=== PATIENT | male | born 1965 | race Caucasian/White ===

== ENCOUNTER 2019-10-02 00:30 | Inpatient (IN) ==
[2019-10-02] MEDS ORDERED: KETOROLAC 30 MG/ML VIAL IV STA (00:43)
[2019-10-02] MEDS ORDERED: ONDANSETRON INJ 2 MG/ML 2 ML VIAL IV STA (00:43)
[2019-10-02] MEDS ORDERED: SODIUM CHLORIDE 0.9% 1000ML 1,000 ML IV SCH (00:45)
[2019-10-02 00:55] LABS: Basophils # (auto) 0.01 K/uL (0-0.2); Basophils % (auto) 0.1 %; Eosinophils # (auto) 0.28 K/uL (0-0.5); Hematocrit (blood only) 37.9 % (42-52); Immature Granulocytes # (auto) 0.02 K/uL (0.00-0.02); Immature Granulocytes % (auto) 0.2 %; Lymphocytes # (auto) 1.45 K/uL (1.2-3.4); Lymphocytes % (auto) 15.4 %; Mean Corpuscular Hemoglobin 32.3 pg (25-34); Mean Corpuscular Hgb Conc 36.9 g/dL (32-36); Mean Corpuscular Volume 87.3 fL (80-100); Mean Platelet Volume 8.8 fL (7.4-10.4); Monocytes # (auto) 0.96 K/uL (0.11-0.59); Monocytes % (auto) 10.2 %; Neutrophils # (auto) 6.72 K/uL (1.4-6.5); Neutrophils % (auto) 71.1 %; Platelet Count 185 K/uL (130-400); RDW Coefficient of Variation 12.6 % (11.5-14.5); RDW Standard Deviation 40.4 fL (36.4-46.3); Red Blood Count 4.34 M/uL (4.7-6.1); White Blood Count 9.44 K/uL (4.8-10.8)
[2019-10-02 01:13] LABS: Albumin Level 3.3 gm/dl (3.4-5.0); BUN Creatinine Ratio 7.5 (10-20); Calcium 9.2 mg/dl (8.5-10.1); Creatinine Clr Calc Pharmacy 38.1 ml/min; Est GFR (African American) 39.4; Potassium 3.7 mmol/L (3.5-5.1)
[2019-10-02 01:16] LABS: Albumin Globulin Ratio 0.8 (0.9-2); Bilirubin,Total 0.7 mg/dl (0.2-1); Globulin 4.4 gm/dl (2.5-4.0); Total Protein 7.7 gm/dl (6.4-8.2)
[2019-10-02 02:52] LABS: Appearance Urine Clear (Clear); Bacteria Urine Automated Negative (Negative); Bilirubin Urine Negative (Negative); Blood Urine 2+ (Negative); Color Urine Dark Yellow; Epithelial Cell Urine Auto 20-30 /lpf (0-5); Glucose Urine UA 3+ (Negative); Ketones Urine Negative (Negative); Leukocyte Esterase Urine Negative (Negative); Nitrite Urine Negative (Negative); Protein Urine 3+ (Negative); Specific Gravity Urine 1.033 (1.000-1.030); Urobilinogen Urine Negative (Negative)
--- NOTE | 2019-10-02 02:55 | History & Physical Report ---
Date of Service October 02, 2019 Assessment & Plan (1) Urinary tract obstruction by kidney stone: Mr. Ortega is a 53-year-old male with a past medical history of type 2 diabetes mellitus, hypertension and hyperlipidemia who presented to [facility] due to a 4-day history of left lower quadrant pain. ED course: 1 L normal saline bolus, 30 mg IV Toradol, 4 mg IV Zofran Left-sided obstructing kidney stone -Admit to med/surg -CT of abdomen and pelvis shows 5x8 millimeter stone in left distal ureter, with an additional 4-5 mm stone in the distal ureter with moderate to severe obstructive changes. Bilateral nephrolithiasis -N.p.o., will consult urology -We will give 1 dose of IV Rocephin as antibiotic prophylaxis -Pain control with as needed 1 g p.o. acetaminophen every 8 hours, 15 mg IV Toradol every 6 hours, 2 mg IV morphine every 3 hours -4 mg IV Zofran every 6 hours as needed for nausea -Maintenance IVF with LR at 100 mls per hour Acute kidney injury -Creatinine elevated to 2.12, from previously normal baseline, likely secondary to obstructing kidney stone -Maintenance IVF as above -Avoid nephrotoxic agents -Recheck BMP tomorrow Diabetes Mellitus Type 2 -Hold home metformin and glyburide -insulin sliding scale with BSG AC/HS Hypertension -Hold home lisinopril given FUAD Hypercholesterolemia -Continue home atorvastatin Code status: FULL DVT Prophylaxis: low risk, SCDs Disposition: admit to med/surg (2) Acute kidney injury: (3) Hypertension: (4) Diabetes: (5) Hypercholesteremia: History of Present Illness Chief Complaint: LLQ Pain Primary Care Provider: NO PCP Mr. Ortega is a 53-year-old male with a past medical history of type 2 diabetes mellitus, hypertension and hyperlipidemia who presented to [facility] due to a 4-day history of left lower quadrant pain. The patient states that he has a history of numerous kidney stones in the past, which he generally passes himself. He states that his pain felt very similar to prior kidney stones, and he thought that he would pass it on his own. He presented to [facility] today due to the fact that his pain was not improving. He states that he had to have a stone surgically removed in 1988, and has had 34 episodes of kidney stones between then and now, all of which she has passed himself. He denies any associated fever, but states that he has had chills, and vomited. He denies any dysuria, or hematuria, and states that he has been able to pass urine. Allergies Allergy/AdvReac Type Severity Reaction Status Date / Time No Known Allergies Allergy Unverified 10/02/19 01:24 Home Medications Home Medications Medication Instructions Recorded Confirmed Type atorvastatin 10 mg PO DAILY 10/02/19 10/02/19 History glyburide 10 mg PO DAILY 10/02/19 10/02/19 History lisinopril 10 mg PO DAILY 10/02/19 10/02/19 History metformin 500 mg PO BID 10/02/19 10/02/19 History Past Med/Surg History Medical History (Updated 10/02/19 @ 02:53 by Tonya Garza MD) Diabetes Hypertension Kidney stone Family History (Updated 10/02/19 @ 00:46 by Kenney Zamora) Other No significant family history Social History Preferred Language: Georgian Feels Safe at Home: Yes Smoking Status: Former smoker Review of Systems Constitutional: + chills and + anorexia; no fever Respiratory: no cough and no dyspnea Cardiovascular: no chest pain, no palpitations and no edema Gastrointestinal: + abdominal pain, + nausea and + vomiting; no change in bowel habits Genitourinary: no dysuria, no difficulty urinating, no urinary frequency and no hematuria Physical Exam Constitutional: WD/WN, vitals as above + well hydrated; no acute distress Eyes: PERRL, conjunctivae normal, anicteric sclerae ENMT: external ear and nose normal, oropharynx normal Respiratory: normal respiratory effort, lungs clear to auscultation Cardiovascular: RRR, no murmur, no edema Gastrointestinal (Abdomen): Percussion/Palpation: + abdomen tender (tender in left lower quadrant and left flank) and abdomen soft; no guarding and abdomen not rigid Musculoskeletal: no cyanosis or clubbing, extremities motor strength 5/5 Skin: no rashes, warm and dry Results & Data Vital Signs (Past 12 Hours) Vital Signs Temp Pulse Pulse Resp BP BP Pulse Ox 10/02/19 01:22 73 18 182/99 H 99 10/02/19 00:53 98 10/02/19 00:33 36.8 C 91 H 18 187/108 H 98 Code Status & VTE Plan VTE Prophylaxis Plan VTE Prophylaxis will be ordered: Yes Supervising Physician Co-Signing Physician Notes Patient seen and examined, chart reviewed, case discussed with Dr. Garza and I agree with her assessment and plan as documented above. Briefly, patient is a 53yo C male with history of nephrolithiasis presenting with obstructing stone, elevated Cr. On exam he is afebrile, HD stable, NAD Resting comfortably in bed +S1S2, regular, no m/r/g Lungs - CTA anteriorly Abd - +BS, soft, NT/ND Ext - no edema Labs and images reviewed Assessment/Plan: 53yo C male with obstructive left sided nephrolithiasis, hydronephrosis. -Admit to medical floor -IVF, pain control, nausea control as needed -Strain urine -Ceftriaxone -Urology consultation - appreciate assistance -Remainder of plan as above Resident Activity Tracking Resident Involvement: Resident Care Provided Care Provided: Adult Hospital Medicine
[2019-10-02] MEDS ORDERED: DEXTROSE 50% 50 ML SYRINGE IV PRN (03:30)
[2019-10-02] MEDS ORDERED: ONDANSETRON INJ 2 MG/ML 2 ML VIAL IV PRN ×2 (03:30→12:16)
[2019-10-02] MEDS ORDERED: GLUCOSE 40% GEL 15 GM TUBE PO PRN (03:30)
[2019-10-02] MEDS ORDERED: CARBOHYDRATES FOR HYPOGLYCEMIA PO PRN (03:30)
[2019-10-02] MEDS ORDERED: KETOROLAC TROMETHAMINE 15 MG/ML VIAL IV PRN (03:30)
[2019-10-02] MEDS ORDERED: cefTRIAXone SODIUM 1,000 MG/50 ML BAG IV STA (03:30)
[2019-10-02] MEDS ORDERED: GLUCOSE 10 TABS/TUBE PO PRN (03:30)
[2019-10-02] MEDS ORDERED: GLUCAGON FOR INJ 1 MG VIAL SQ PRN (03:30)
[2019-10-02] MEDS ORDERED: MoRPHine SULFATE 2 MG/ML CARP IV PRN (03:30)
[2019-10-02] MEDS ORDERED: ACETAMINOPHEN 500 MG TAB PO PRN (03:30)
[2019-10-02] MEDS: INSULIN ASPART 100 UNITS/ML 3 ML PEN SC SCH ×6 (03:59→21:39)
[2019-10-02] MEDS: LACTATED RINGER'S 1,000 ML IV SCH ×2 (04:19→14:27)
--- NOTE | 2019-10-02 04:35 | Billing Data ---
Date of Service October 02, 2019 Coding Level of Care Code 65315 Initial Inpt Care Lvl 2
--- NOTE | 2019-10-02 06:41 | Emergency Department Note ---
Entered by Kenney Zamora acting as a scribe for History of Present Illness General Chief complaint: Kidney Stone Stated complaint: KIDNEY STONE Time Seen by Provider: 10/02/19 00:36 Source: patient History of Present Illness Onset (ago): day(s) 4 Location: left (flank) Severity: similar to prior episodes Pain Consistency: + constant Maximum Pain Intensity: 8 Associated symptoms: + other (Positive for vomiting, abdominal pain, abdominal bloating, nausea, diarrhea, and chills. Negative for fever, urianry symptoms, and leg cramping/swelling.) The patient is a 53 year old male who presents to the emergency department with complaints of constant left flank pain beginning four days ago. The patient states that he has a history of kidney stones. He notes that he is usually able to pass them, but he reports that he has been having constant left flank pain for the last four days. He states that his current pain is similar to his prior episodes. He notes that he has also had intermittent episodes of vomiting for the last four days. He reports that he is having abdominal pain and bloating, which he states is different than his usual kidney stone symptoms. He also complains of nausea, diarrhea, and chills. He denies any fever, urinary symptoms, and leg cramping/swelling. He notes that he also has a history of diabetes and hypertension. Home Medications Home Medications Medication Instructions Recorded Confirmed Type atorvastatin 10 mg PO DAILY 10/02/19 10/02/19 History glyburide 10 mg PO DAILY 10/02/19 10/02/19 History lisinopril 10 mg PO DAILY 10/02/19 10/02/19 History metformin 500 mg PO BID 10/02/19 10/02/19 History Allergies Allergy/AdvReac Type Severity Reaction Status Date / Time No Known Allergies Allergy Unverified 10/02/19 01:24 Past Med/Surg History Family History (Updated 10/02/19 @ 00:46 by Kenney Zamora) Other No significant family history Social History Preferred Language: Faroese Communication Ability: Effective Special Procedures Technologist Required: No Beliefs That Will Affect Care: None Current Living Situation: Significant Other Other Information That Helps Us Care for You: No Feels Safe at Home: Yes Safety Concerns: Feels Safe At This Time Smoking Status: Never smoker Hx Alcohol Use: Yes Alcohol type: beer Hx Substance Use: No Review of Systems See HPI for pertinent positives & negatives. and A total of 10 systems reviewed and were otherwise negative Physical Exam Vital Signs Vital Signs - 24 hr 10/02/19 00:33 10/02/19 00:53 10/02/19 01:22 Temperature 36.8 C Temperature Source Oral Pulse Rate 91 H Pulse Rate [Finger] 73 Respiratory Rate 18 18 Respiratory Effort / Characteristics Non-Labored Spontaneous Respiratory Depth Normal Blood Pressure 187/108 H Blood Pressure [Left Arm] 182/99 H Blood Pressure Mean 134 Blood Pressure Mean [Left Arm] 126 Pulse Oximetry 98 98 99 Oxygen Delivery Method Room Air Room Air Room Air Sepsis Recent Fever Within 48 Hours No Sepsis New/Unexplained Change in Mental Status No Sepsis Action Taken by Nursing No Action Required General: Appears uncomfortable. HEENT: Head - normocephalic and atraumatic Pupils are equal, round, and reactive to light. Extraocular eye muscles are intact, and sclera are anicteric. Nose - moist nasal mucosa without discharge. Mouth - moist buccal mucosa. Oropharynx is nonerythematous and there is no tonsillar exudate or edema noted. Neck: Supple; no cervical lymphadenopathy. Heart: Regular rate and rhythm. There is a normal S1 and S2 with no murmurs, clicks, or gallops appreciated. Lungs: Clear to auscultation bilaterally with no wheezes, rales, or rhonchi. Abdomen: Soft, completely nontender, nondistended, with good bowel sounds. There are no palpable pulsatile masses or hepatosplenomegaly. There is no guarding, rigidity, or rebound noted. Back: Left CVA tenderness. Extremities: No evidence of cyanosis, clubbing, or edema. There are easily palpable peripheral pulses. Skin: warm and dry with good turgor and no rashes. Course Course 0037: The patient was evaluated in room A11. A complete history and physical examination were performed. Nursing notes and previous electronic medical records were reviewed. IV lock was established and labs were drawn as above. 0053: Sodium Chloride 1000 mls @ 999 mls/hr IV, Ketorolac Tromethamine 30mg IV, Ondansetron HCl 4mg IV 0137: I rechecked the patient. He has less pain. 0149: Upon reevaluation, the patient is stable. I discussed the findings and the treatment plan with the patient. He expresses agreement and understanding. I spoke with Dr. Carvajal of the [facility] Hospitalist Service. The patient will be evaluated for further management. Consultations Consultation #1: I reviewed the patient's case with Dr. Cravajal - Hospitalist, [facility]. She will evaluate the patient for further management. Time: 01:49 Administered Medications Lactated Ringer's (Lr) 1,000 mls @ 100 mls/hr IV .Q10H NATALIE Stop: 10/03/19 00:14 Last Admin: 10/02/19 04:19 Dose: 100 mls/hr Documented by: [id number] Insulin Aspart (Novolog Flexpen) 0 units SC Q6 NATALIE Stop: 11/01/19 05:59 Last Admin: 10/02/19 06:01 Dose: 3 units Documented by: [id number] Cosigned by: [id number] Admin: 10/02/19 03:59 Dose: 9 units Documented by: [id number] Cosigned by: [id number] Discontinued Medications Sodium Chloride (Nss 1000ml) 1,000 mls @ 999 mls/hr IV .Q1H1M NATALIE Stop: 10/02/19 01:45 Last Infusion: 10/02/19 02:16 Dose: 0 mls/hr Documented by: [id number] Admin: 10/02/19 00:53 Dose: 999 mls/hr Documented by: [id number] Ceftriaxone Sodium (Rocephin) 1,000 mg in 50 mls @ 100 mls/hr IV NOW STA Stop: 10/02/19 03:59 Last Infusion: 10/02/19 04:21 Dose: 0 mls/hr Documented by: [id number] Admin: 10/02/19 03:51 Dose: 100 mls/hr Documented by: [id number] Ketorolac Tromethamine (Toradol) 30 mg IV NOW STA Stop: 10/02/19 00:44 Last Admin: 10/02/19 00:53 Dose: 30 mg Documented by: [id number] Ondansetron HCl (Zofran) 4 mg IV NOW STA Stop: 10/02/19 00:44 Last Admin: 10/02/19 00:53 Dose: 4 mg Documented by: [id number] Medical Decision Making Differential Diagnosis Differential diagnoses include: ureteral colic, obstructive uropathy, pyelonephritis, gastritis, and diverticulitis. Medical Records Attestation: I reviewed the patient's medical records. Home Medications Current Medication List: was personally reviewed by me Laboratory Data Attestation: I reviewed the patient's lab results. Result diagrams: 10/02/19 00:45 10/02/19 00:45 Lab Results 10/02/19 10/02/19 10/02/19 Range/Units 00:45 00:45 02:20 WBC 9.44 (4.8-10.8) K/uL RBC 4.34 L (4.7-6.1) M/uL Hgb 14.0 (14.0-18.0) g/dL Hct 37.9 L (42-52) % MCV 87.3 (80-100) fL MCH 32.3 (25-34) pg MCHC 36.9 H (32-36) g/dL RDW Std Deviation 40.4 (36.4-46.3) fL RDW Coeff of Kelsey 12.6 (11.5-14.5) % Plt Count 185 (130-400) K/uL MPV 8.8 (7.4-10.4) fL Immature Gran % (Auto) 0.2 % Neut % (Auto) 71.1 % Lymph % (Auto) 15.4 % [place] % (Auto) 10.2 % Eos % (Auto) 3.0 % Baso % (Auto) 0.1 % Immature Gran # (Auto) 0.02 (0.00-0.02) K/uL Neut # (Auto) 6.72 H (1.4-6.5) K/uL Lymph # (Auto) 1.45 (1.2-3.4) K/uL [place] # (Auto) 0.96 H (0.11-0.59) K/uL Eos # (Auto) 0.28 (0-0.5) K/uL Baso # (Auto) 0.01 (0-0.2) K/uL Sodium 132 L (136-145) mmol/L Potassium 3.7 (3.5-5.1) mmol/L Chloride 97 L (98-107) mmol/L Carbon Dioxide 27 (21-32) mmol/L Anion Gap 8.0 (3-11) BUN 16 (7-18) mg/dl Creatinine 2.12 H (0.6-1.4) mg/dl Est Cr Clr Drug Dosing 38.1 ml/min Est GFR ( Amer) 39.4 Est GFR (Non-Af Amer) 34.0 BUN/Creatinine Ratio 7.5 L (10-20) Glucose 292 H (70-99) mg/dl Calcium 9.2 (8.5-10.1) mg/dl Total Bilirubin 0.7 (0.2-1) mg/dl AST 11 L (15-37) U/L ALT 21 (12-78) U/L Alkaline Phosphatase 120 H (45-117) U/L Total Protein 7.7 (6.4-8.2) gm/dl Albumin 3.3 L (3.4-5.0) gm/dl Globulin 4.4 H (2.5-4.0) gm/dl Albumin/Globulin Ratio 0.8 L (0.9-2) Lipase 89 (73-393) U/L Urine Color Dark Yellow Urine Appearance Clear (Clear) Urine pH 5.0 (4.5-7.5) Ur Specific [place]awk 1.033 H (1.000-1.030) Urine Protein 3+ H (Negative) Urine Glucose (UA) 3+ H (Negative) Urine Ketones Negative (Negative) Urine Blood 2+ H (Negative) Urine Nitrite Negative (Negative) Urine Bilirubin Negative (Negative) Urine Urobilinogen Negative (Negative) Ur Leukocyte Esterase Negative (Negative) Urine WBC (Auto) 1-5 (0-5) /hpf Urine RBC (Auto) 10-30 H (0-4) /hpf U Hyaline Cast (Auto) 1-5 (0-5) /lpf U Epithel Cells (Auto) 20-30 H (0-5) /lpf Urine Bacteria (Auto) Negative (Negative) Imaging Data Radiologist's Impression: CT ABDOMEN & PELVIS Without Contrast: 5 x 8 mm stone in the left distal ureter. Additional 4-5 mm stone in the distal ureter. There is moderate to severe obstructive changes. Bilateral nephrolithiasis. Liquid or loose stool in the colon. Unremarkable appendix. Mile presacral edema. Small mesenteric and retroperitoneal nodes. No radiodense gallstones or pancreatitis. Radiologist: Jamil Mcdonald MD. Blood Pressure Blood Pressure Findings: Elevated blood pressure Blood Pressure Disposition: further management by hospitalist [facility] Narrative The patient is a 53 year old male who presents to the emergency department with complains of constant left flank pain beginning four days ago. The patient has a history of previous kidney stones but typically passes them on his own. He became more concerned tonight when his left flank pain increased and he had persistent nausea and vomiting. CT scan shows 2 left sided distal ureteral stones with one measuring 5 x 8 mm with severe hydronephrosis. This most likely represents an obstructive uropa thy. The patient's creatinine has more than doubled. This is concerning for acute kidney injury. The patient's blood pressure and diabetes are uncontrolled. He is hemodynamically stable and his pain is controlled at this time. The case was discussed with the [facility] Hospitalist and they will evaluate for further management. Impression & Plan Urinary tract obstruction by kidney stone, Acute kidney injury, Hyperglycemia Discharge Plan Visit Data *Final* Discharge Date/Time: 10/02/19 03:14 Chief Complaint: Kidney Stone Stated Complaint: KIDNEY STONE ED Provider: Shweta Rose Discharge Problem: Urinary tract obstruction by kidney stone, Acute kidney injury, Hyperglycemia Patient Disposition: Admitted As Inpatient Discharge Instructions Interventions: ED Discharge Assessment Last Done: 10/02/19 03:14 The scribe's documentation has been prepared under my direction and personally r eviewed by me in its entirety. I confirm that the note above accurately reflects all work, treatment, procedures, and medical decision making performed by me.
--- NOTE | 2019-10-02 07:11 | CT Scan Report ---
ABDOMEN AND PELVIS CT WITHOUT CONTRAST CT DOSE: 1229.48 mGy.cm HISTORY: eval for left sided stone TECHNIQUE: Multiaxial CT images of the abdomen and pelvis were performed without contrast. A dose lo wering technique was utilized adhering to the principles of ALARA. COMPARISON STUDY: Renal ultrasound 11/02/2017. FINDINGS: Left basilar linear density consistent with subsegmental atelectasis. No pneumoperitoneum. No pneumatosis. No suspicious lytic or blastic osseous lesions. The unenhanced liver, gallbladder, pa ncreas, and adrenal glands are unremarkable. Punctate calcifications within the spleen. Bilateral per inephric edema, left greater than right. There is a 6 mm stone and a 2 mm stone within the lower pole the left kidney. No right renal calculi. There is left periureteral edema. An 8 mm stone within the distal left ureter resulting in moderate left hydronephrosis. There is an additional 4 mm stone also within the distal left ureter. The bladder is decompressed but appears unremarkable. No retroperitone al lymphadenopathy. A left retroaortic renal vein. Suboptimal evaluation for bowel pathology due to t he lack of intravenous and oral contrast. However, there is no definite bowel wall thickening or obst ruction. Normal appendix. Liquid stool is noted. IMPRESSION: 1. There are 2 stones within the distal left ureter including an obstructing 8 mm stone resulting in moderate left hydronephrosis. 2. Left-sided nephrolithiasis. 3. Liquid stool within the colon. No bowel wall thickening or obstruction. 4. Normal appendix. ACT 112: Negative or not required by law. Electronically signed by: Rafael Fitch M.D. 10/02/2019 7:10 AM
--- NOTE | 2019-10-02 07:41 | Urology Consultation ---
Date of Consultation October 02, 2019 Assessment & Plan (1) Kidney stone: 53yo M admitted with obstructing 8mm and 5mm distal left ureteral stones, moderate hydronephrosis and FUAD. Keep NPO Strain all urine Findings reviewed with Dr. Ortega. Given his renal failure in the context of an obstructing distal left ureteral stone, will proceed with OR for cysto, Left retrograde pyelogram and Left stent placement. Risks and benefits to be reviewed with patient by Dr Khanna. OR notified. Preoperative CXR and EKG complete. Will cover with IV Rocephin preoperatively. History of Present Illness Attending Physician: Esther Perry MD History of Present Illness Mr. Ortega is a 53-year-old male with a past medical history of type 2 diabetes mellitus, hypertension and hyperlipidemia who presented to [facility] due to a 4-day history of LLQ pain. Diagnosed with two obstructing distal left ureteral stones, moderate to severe hydronephrosis. Known hx stones with spontaneous passage. Has required surgical intervention in 1988 most recently. Denies f/c/n/v presently, presented with chills and vomiting [place]. Denies dysuria, hematuria. Cr elevated 2.12 with decreased urine output. Pt sleeping in bed when entered room, easily arousable. Pain currently controlled with IV pain control. NPO awaiting our recommendations. Allergies Allergy/AdvReac Type Severity Reaction Status Date / Time No Known Allergies Allergy Unverified 10/02/19 01:24 Home Medications Home Medications Medication Instructions Recorded Confirmed Type atorvastatin 10 mg PO DAILY 10/02/19 10/02/19 History glyburide 10 mg PO DAILY 10/02/19 10/02/19 History lisinopril 10 mg PO DAILY 10/02/19 10/02/19 History metformin 500 mg PO BID 10/02/19 10/02/19 History Patient History Medical History Diabetes Hypertension Kidney stone Family History Other No significant family history Social History Preferred Language: [place] Citizen Communication Ability: Effective Email Marketing Specialist Required: No Beliefs That Will Affect Care: None Current Living Situation: Significant Other Other Information That Helps Us Care for You: No Feels Safe at Home: Yes Safety Concerns: Feels Safe At This Time Smoking Status: Never smoker Hx Alcohol Use: Yes Alcohol type: beer Hx Substance Use: No Review of Systems Review of Systems: All systems reviewed & are unremarkable except as noted in HPI & below Physical Exam Constitutional: no acute distress and not ill appearing Eyes: no nystagmus ENMT: Ears: no hearing impairment Neck: trachea midline Respiratory: no respiratory distress and no cough Cardiovascular: Vessels: no JVD Chest (Breasts): Chest: normal inspection of chest Gastrointestinal (Abdomen): Inspection/Auscultation: abdomen not distended and no abdominal edema Percussion/Palpation: abdomen soft; abdomen nontender Musculoskeletal: Head/Neck/Chest: normocephalic and head atraumatic Skin: no rashes, warm and dry Neurologic: awake; not confused and not obtunded Psychiatric: Orientation: alert and oriented x 3 Eye Contact: good eye contact Affect: no depressed affect Genitourinary: bladder normal to inspection; no CVA tenderness Lymphatic: no lymphadenopathy and no lymphedema Results & Data Vital Signs (Past 12 Hours) Vital Signs Temp Pulse Pulse Resp BP BP Pulse Ox 10/02/19 07:02 36.6 C 59 L 16 166/92 H 95 10/02/19 03:30 36.8 C 67 18 155/76 H 98 10/02/19 03:14 75 18 154/77 H 96 10/02/19 01:22 73 18 182/99 H 99 10/02/19 00:53 98 10/02/19 00:33 36.8 C 91 H 18 187/108 H 98 PG Care Time/CCT Total # of Minutes Spent Total Time Spent with Patient: Total time spent is greater than 50% in coordination of care (as documented) at patient's floor/unit and/or counseling patient:
[2019-10-02 07:43] LABS: BUN Creatinine Ratio 7.9 (10-20); Calcium 8.4 mg/dl (8.5-10.1); Creatinine Clr Calc Pharmacy 44.8 ml/min; Est GFR (Non-African American) 36.3; Potassium 3.2 mmol/L (3.5-5.1)
--- NOTE | 2019-10-02 08:51 | XRay Report ---
XR chest 2V PA/lateral HISTORY: preop COMPARISON: None. FINDINGS: No pneumothorax. No pleural effusions. The lungs are clear. The heart is normal in size. Ol d, healed left posterior rib fractures. IMPRESSION: No acute process. ACT 112: Negative or not required by law. Electronically signed by: Rafael Fitch M.D. 10/02/2019 8:50 AM
[2019-10-02] MEDS: ATORVASTATIN 10 MG TAB PO SCH (09:04)
[2019-10-02] MEDS ORDERED: IOTHALAMATE MEGLUMINE II 17.2% 250 ML VIAL ONE (11:49)
--- NOTE | 2019-10-02 11:50 | Discharge Summary ---
Date of Service October 02, 2019 Admission HPI Per Admitting Provider Mr. Ortega is a 53-year-old male with a past medical history of type 2 diabetes mellitus, hypertension and hyperlipidemia who presented to [facility] due to a 4-day history of left lower quadrant pain. The patient states that he has a history of numerous kidney stones in the past, which he generally passes himself. He states that his pain felt very similar to prior kidney stones, and he thought that he would pass it on his own. He presented to [facility] today due to the fact that his pain was not improving. He states that he had to have a stone surgically removed in 1988, and has had 34 episodes of kidney stones between then and now, all of which she has passed himself. He denies any associated fever, but states that he has had chills, and vomited. He denies any dysuria, or hematuria, and states that he has been able to pass urine. Admission Exam Per Admitting Provider Constitutional: WD/WN, vitals as above + well hydrated; no acute distress Eyes: PERRL, conjunctivae normal, anicteric sclerae ENMT: external ear and nose normal, oropharynx normal Respiratory: normal respiratory effort, lungs clear to auscultation Cardiovascular: RRR, no murmur, no edema Gastrointestinal (Abdomen): Percussion/Palpation: + abdomen tender (tender in left lower quadrant and left flank) and abdomen soft; no guarding and abdomen not rigid Musculoskeletal: no cyanosis or clubbing, extremities motor strength 5/5 Skin: no rashes, warm and dry Discharge Exam General: A&Ox3. NAD. Cooperative. HEENT: Atraumatic, normocephalic. Pulm: CTAB A&P. -wheezes, -rales, -rhonchi. Symmetrical chest rise. No increase work of breathing. No respiratory distress. Cardiac: RRR, -mrg. Radial pulses intact and symmetrical. Abdominal: Mild left flank tenderness. Left CVA tenderness. Abdomen soft, no rebound tenderness. No guarding. Bowel sounds intact. Discharge Data Allergies Allergy/AdvReac Type Severity Reaction Status Date / Time No Known Allergies Allergy Unverified 10/02/19 01:24 Consultations 10/02/19 01:52 ED Decision to Admit Stat 10/02/19 03:30 Consult Urology Routine Procedures Performed Operation Date: 10/02/19 11:25 <No data on this case meets the specified criteria> Ordered Studies 10/02/19 00:43 CT abd pelvis wo con Urgent 10/02/19 14:45 FL retrograde includes kub Routine Hospital Course (1) Urinary tract obstruction by kidney stone: Mr. Ortega is a 53-year-old male with a past medical history of type 2 diabetes mellitus, hypertension and hyperlipidemia who presented to [facility] due to a 4-day history of left lower quadrant pain and who was admitted for renal calculi requiring stent placement. To do as outpatient: 1. Repeat BMP to follow creatinine 2. Restart lisinopril once creatinine has improved Left-sided obstructive calculi with hydronephrosis Jez presented with several days of left-sided flank pain, abdominal pain, and nausea/vomiting. He had not had any dysuria. CT of the abdomen and pelvis showed an 8 mm and 4-5 mm obstructing kidney stone with an additional 2 mm nonobstructing stone. Bilateral nephrolithiasis were appreciated, no obstructing stones were appreciated on the right. He was given 1 L of normal saline, 30 mg of Toradol, and Zofran with improvement in his pain. Urology was consulted, and he underwent left ureteral stent placement. [] . He did not show any signs of urinary tract infection and did not require antibiotics on discharge. Acute kidney injury Jez presented with an acute elevation of his creatinine to 2.12 from a normal baseline in the setting of an obstructive kidney stone. His creatinine down trended but remained elevated day of stent placement. He was clinically well and encouraged to hydrate and to follow-up with his PCP for repeat BMP within 1 week. Type 2 diabetes Jez has a history of type 2 diabetes managed with metformin and glyburide. His prior to admission anti-glycemic's were held and he was placed on sliding scale insulin with good glycemic control during admission. Hypertension Jez has a history of hypertension managed with lisinopril. Lisinopril was held in the setting of FUAD, and held on discharge pending repeat BMP. He should have his creatinine reassessed as an outpatient, and lisinopril restarted when appropriate. Hypercholesterolemia To admission atorvastatin was continued during admission. (2) Acute kidney injury: (3) Hypertension: (4) Diabetes: (5) Hypercholesteremia: Discharge Plan Discharge Items Patient Disposition: Home - Self-Care Reason For Visit: KIDNEY STONE, FUAD Discharge Diagnosis: Kidney Stone, FUAD Activity: Resume your previous activity Non-emergency contact: Primary Care Provider Call non-emergency contact if: you have any medication questions, your symptoms worsen, your pain is not controlled, your pain is worsening, your pain is unusual for you and you have a fever Follow-up/Referrals: PCP,NO [Primary Care Provider] - Diet: Regular Addtl Attending Provider Instructions: You are seen in the hospital for flank pain, nausea, and vomiting and were found to have obstructing kidney stones. You have had a left ureteral stent placed by urology. You did not show signs of urinary tract infection, and have not been discharged on any antibiotics. You have had medications held due to kidney injury as noted below. Please do not take your lisinopril until directed to do so by your primary care physician. This medication has been held due to kidney injury, and should be restarted once your creatinine returns to normal. You experienced a mild kidney injury due to your obstructing kidney stone. Your creatinine (markers of kidney function) were improving at time of discharge, but were not yet completely normal. You should have a BMP repeated within 1 week of discharge to recheck your kidney function, and if it is normalized you may resume your lisinopril at that time. If your kidney function does not improve, you should be seen for further discussion by her primary care doctor. An appointment with your primary care physician is being scheduled for you. If you do not hear from their office within 48 hours, please call them to schedule an appointment. You should be seen within 1 week. If you experience any new, recurrent, or worsening symptoms including fever, chills, sweats, worsening pain, nausea, vomiting, diarrhea, passing out or nearly passing out, chest pain, wheezing, or other concerning symptoms please contact your primary care physician, or call 911 for transport to the emergency department for reevaluation. Pending Studies at Discharge: Yes Studies:: Repeat BMP within 1 week Stand-Alone Forms: My [employer], Smoking Cessation Medications and DC Order Prescriptions: Continued metformin 500 mg tablet 500 mg PO BID RF: 0 glyburide 5 mg tablet 10 mg PO DAILY RF: 0 atorvastatin 10 mg Tablet 10 mg PO DAILY RF: 0 Discontinued lisinopril 10 mg Tablet 10 mg PO DAILY RF: 0 Admission Data Admit Date/Time: 10/02/19 02:47 Attending Provider: Esther Perry Admit Provider: Tonya Garza Primary Care Provider: PCP,NO Other Providers: Samantha Carvajal ; Carlos Khanna.
[2019-10-02] MEDS ORDERED: DEXAMETHASONE SOD INJ 4 MG/ML VIAL ONE ×2 (11:54→11:56)
[2019-10-02] MEDS ORDERED: PROPOFOL IV EMULSION 10 MG/ML 20 ML VIAL IV ONE (11:54)
[2019-10-02] MEDS ORDERED: ONDANSETRON INJ 2 MG/ML 2 ML VIAL ONE (11:54)
[2019-10-02] MEDS ORDERED: LIDOCAINE HCL 2% 2 ML VIAL/AMP(20MG/ML) INFIL ONE (11:54)
--- NOTE | 2019-10-02 11:54 | History & Physical Bridge Note ---
Date of Service October 02, 2019 History & Physical Bridge Note I have examined the patient, reviewed the History & Physical and in the interval since the performance of the History & Physical I have noted the following changes of clinical significance: no changes noted Cystoscopy with left stent
[2019-10-02] MEDS ORDERED: fentaNYL citrate 100 MCG/2 ML VIAL ONE (11:55)
[2019-10-02] MEDS ORDERED: MIDAZOLAM HCL 1 MG/ML 2ML VIAL ONE ×2 (11:55→12:25)
--- NOTE | 2019-10-02 12:14 | Anesthesiology Consultation ---
Date of Service October 02, 2019 Assessment & Plan Chart Review Chart Review: Acceptable Risk for Surgery and Patient NOT seen in Pre Admission Testing Consults Requested none ASA ASA3 Proposed Anesthesia Anesthesia Type: General and MAC Risk / Benefits Reviewed With: PT / POA / Parent / Guardian, Accepts Plan and Informed Consent Obtained History Surgery Operation Date: 10/02/19 11:25 Proposed Procedures p Cystoscopy, Left Retrograde and Stent Placement - Carlos Khanna, DO Height/Weight Height: 5 ft 8 in Weight: 88 kg Allergies Allergy/AdvReac Type Severity Reaction Status Date / Time No Known Allergies Allergy Unverified 10/02/19 01:24 Medications Home Medications Medication Instructions Recorded Confirmed Last Taken atorvastatin 10 mg PO DAILY 10/02/19 10/02/19 10/01/19 glyburide 10 mg PO DAILY 10/02/19 10/02/19 10/01/19 lisinopril 10 mg PO DAILY 10/02/19 10/02/19 10/01/19 metformin 500 mg PO BID 10/02/19 10/02/19 10/01/19 Active Medications Generic Name Dose Route Start Last Admin Trade Name Freq PRN Reason Stop Dose Admin Atorvastatin Calcium 10 mg 10/02/19 09:00 10/02/19 09:04 Lipitor PO 11/01/19 08:59 10 mg DAILY NATALIE Administration Lactated Ringer's 1,000 mls @ 100 mls/hr 10/02/19 04:15 10/02/19 04:19 Lr IV 10/03/19 00:14 100 mls/hr .Q10H NATALIE Administration Insulin Aspart 0 units 10/02/19 06:00 10/02/19 06:01 Novolog Flexpen SC 11/01/19 05:59 3 units Q6 NATALIE Administration NPO Date Last Intake of Fluids: 10/01/19 Time Last Intake of Fluids: 22:00 Date Last Intake of Solids: 09/30/19 Time Last Intake of Solids: 19:00 Past Medical History Medical History Diabetes Hypertension Kidney stone Exercise / Class Metabolic Activity III < 4 Walking/Shop/Light housework Past Family History Family History Other No significant family history Past Anesthesia History No Hx of Anesthesia Complications and No Family Hx of Anesthesia Complications History of PONV No Hx of PONV and No Hx of Motion Sickness Social History Smoking Status: Never smoker Hx Alcohol Use: Yes Alcohol type: beer alcohol intake frequency: a few times a week Alcohol Intake Frequency Comment: 6 beers a week Hx Substance Use: No substance use type: does not use Physical Exam Vital Signs Last Vital Signs Temp 36.8 C 10/02/19 11:36 Pulse 65 10/02/19 11:36 Resp 18 10/02/19 11:36 BP 187/93 H 10/02/19 11:36 Pulse Ox 97 10/02/19 11:36 Constitutional + obese ENMT Mouth: no dentition abnormality Thyromental Distance: > or= 3.5 Finger Breadths Mallampati Class: II Neck normal visual inspection and trachea midline; neck extension not limited Respiratory normal respiratory effort Auscultation: lungs clear to auscultation bilaterally Cardiovascular Rate/Rhythm: regular rate and regular rhythm Heart Sounds: no murmur Vessels: no carotid bruit Musculoskeletal Spine: normal cervical ROM Neurologic moves all extremities Motor/Sensory: + sensory deficit (diabetic PN feet) Psychiatric Orientation: alert and oriented x 3 Testing Laboratory Results 10/02/19 00:45 10/02/19 06:51 Urine Color Dark Yellow 10/02/19 02:20 Urine Appearance Clear (Clear) 10/02/19 02:20 Urine pH 5.0 (4.5-7.5) 10/02/19 02:20 Ur Specific [place] 1.033 (1.000-1.030) H 10/02/19 02:20 Urine Protein 3+ (Negative) H 10/02/19 02:20 Urine Glucose (UA) 3+ (Negative) H 10/02/19 02:20 Urine Ketones Negative (Negative) 10/02/19 02:20 Urine Nitrite Negative (Negative) 10/02/19 02:20 Ur Leukocyte Esterase Negative (Negative) 10/02/19 02:20 Urine WBC (Auto) 1-5 /hpf (0-5) 10/02/19 02:20 Urine RBC (Auto) 10-30 /hpf (0-4) H 10/02/19 02:20 U Hyaline Cast (Auto) 1-5 /lpf (0-5) 10/02/19 02:20 U Epithel Cells (Auto) 20-30 /lpf (0-5) H 10/02/19 02:20 Urine Bacteria (Auto) Negative (Negative) 10/02/19 02:20 10/02/19 10/02/19 10/02/19 11:42 05:50 03:28 POC Glucose 145 H 203 H 263 H Electrocardiogram Findings: + SB @ (at 55;LVH;? age septal infarct) Chest X-Ray Date: 10/02/19 Findings: + NAD
[2019-10-02] MEDS ORDERED: PROMETHAZINE HCL 12.5 MG in SODIUM CHLORIDE 0.9% 50 ML IV PRN (12:16)
[2019-10-02] MEDS ORDERED: NALOXONE HCL 0.4 MG/1 ML VIAL/CARP IV PRN (12:16)
[2019-10-02] MEDS ORDERED: ePHEDrine sulfate 50 MG/ML AMP IV PRN (12:16)
[2019-10-02] MEDS ORDERED: FLUMAZENIL 0.1 MG/1 ML 10 ML VIAL IV PRN (12:16)
[2019-10-02] MEDS ORDERED: fentaNYL citrate 100 MCG/2 ML VIAL IV PRN (12:16)
[2019-10-02] MEDS ORDERED: ATROPINE SULFATE 0.1 MG/ML 10ML SYR IV PRN (12:16)
[2019-10-02] MEDS ORDERED: LABETALOL HCL IV 5 MG/ML 20ML IV PRN (12:16)
--- NOTE | 2019-10-02 12:24 | Hospitalist Progress Note ---
Date of Service October 02, 2019 Assessment & Plan (1) Urinary tract obstruction by kidney stone: Jez is a 53-year-old male with a past medical history of diabetes, hypertension, kidney stones who presents with several days of nausea, vomiting, and left flank pain and who is been admitted for left obstructive kidney stones and FUAD. Left obstructive kidney stones with moderate hydronephrosis CT abdomen shows 8 mm stone, 6 mm obstructive stones and a 2 mm nonobstructive stone. Bilateral nephrolithiasis, no obstruction on right side. Moderate hydro-of left kidney. N.p.o., urology consulted. Pending stenting No sign of infection. Preprocedure Prophylactic abx ordered by urology. 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 Harrington and agree with the findings and care plan. Subjective Jez is seen at the bedside this morning. He reports he has had several days of nausea, vomiting, left flank pain, and left abdominal pain which are improved this morning. He does not report any pain at rest this morning. He is eager to get the stenting procedure over with, and would like to go home afterwards if possible. Denies fever, chills, sweats today. Review of Systems Review of Systems: Constitutional: Denies fever, chills, malaise Eyes: Denies vision change ENT: Denies ear pain, sore throat, sinus pain Cardiovascular: Denies Chest pain, chest pressure, palpitations, extremity swelling Respiratory: Denies shortness of breath, cough, sputum production, difficulty breathing Gastrointestinal: As noted in HPI Genitourinary: Denies pain with urination Musculoskeletal: Denies weakness, joint aches/pain. Flank pain as noted in HPI Integumentary:Denies rash, lesions, bruising Neurological: Denies headache, numbness, tingling, focal weakness Physical Exam Physical Exam: General: A&Ox3. NAD. Cooperative. HEENT: Atraumatic, normocephalic. Pulm: CTAB A&P. -wheezes, -rales, -rhonchi. Symmetrical chest rise. No increase work of breathing. No respiratory distress. Cardiac: RRR, -mrg. Radial pulses intact and symmetrical. Abdominal: Mild left flank tenderness. Left CVA tenderness. Abdomen soft, no rebound tenderness. No guarding. Bowel sounds intact. Results & Data Vital Signs (Past 12 Hours) Vital Signs Temp Pulse Pulse Resp BP BP Pulse Ox 10/02/19 11:36 36.8 C 65 18 187/93 H 97 10/02/19 07:02 36.6 C 59 L 16 166/92 H 95 10/02/19 03:30 36.8 C 67 18 155/76 H 98 10/02/19 03:14 75 18 154/77 H 96 10/02/19 01:22 73 18 182/99 H 99 10/02/19 00:53 98 10/02/19 00:33 36.8 C 91 H 18 187/108 H 98 Resident Activity Tracking Resident Involvement: Resident Care Provided Care Provided: Adult Hospital Medicine
--- NOTE | 2019-10-02 12:44 | Operative Report ---
PG Post Operative Report Pre & Post Diagnosis Operation Date: 10/02/19 11:25 Pre-Op Diagnosis: KIDNEY STONE, FUAD Post-Op Diagnosis: KIDNEY STONE, FUAD I identified the patient and participated in the time-out.: Yes Procedure Operation Date: 10/02/19 11:25 Actual Procedures p Cystoscopy, Left Retrograde and Stent Placement(Left) - Pamela Kumar Surgeon Carlos Khanna, II, DO Radar Mechanic None Estimated Blood Loss 1 Findings Consistent with Post-Op Diagnosis Stent placed in good position. Specimens None Drains 6 Fr Multilength Anesthesia Type MAC Complications none Disposition Disposition: Recovery Room Indications Patient with obstruction. Risks and benefits discussed at length. Description of Procedure Patient was consented and brought back to the operating room. Patient was placed under anesthesia in the supine position and moved to the dorsal lithotomy position. Patient was prepped and draped in the regular sterile fashion. A time out was completed. A 30degree Cystoscope was placed into the bladder and the entire bladder was examined. The UO's were identified. The UO was cannulized with a catheter and a retrograde pyelogram was completed. A wire was then placed. With the wire in place, a 6 Fr Double J stent was placed. It was confirmed with fluoroscopy. With the stent in place, the bladder was emptied. The scope was removed. The patient was cleaned, aroused from anesthesia, and transferred to the pacu in stable condition having tolerated the procedure well with no complications. I was present and participated in all aspects of the procedure. The patient will be monitored in the PACU until transferred. I attest to the content of the Intraoperative Record and any orders documented therein. Any exceptions are noted below.
--- NOTE | 2019-10-02 13:09 | Anesthesiology Progress Note ---
Date of Service October 02, 2019 Anesthesia Post Procedure Vital Signs Vital Signs: Temp Pulse Pulse Pulse Resp BP BP 10/02/19 13:05 36.5 C 63 15 148/82 H 10/02/19 12:55 68 18 154/88 H 10/02/19 12:46 36.8 C 68 18 125/74 10/02/19 11:36 36.8 C 65 18 187/93 H 10/02/19 07:02 36.6 C 59 L 16 166/92 H 10/02/19 03:30 36.8 C 67 18 155/76 H 10/02/19 03:14 75 18 154/77 H 10/02/19 01:22 73 18 182/99 H 10/02/19 00:53 10/02/19 00:33 36.8 C 91 H 18 187/108 H Pulse Ox 10/02/19 13:05 93 10/02/19 12:55 95 10/02/19 12:46 99 10/02/19 11:36 97 10/02/19 07:02 95 10/02/19 03:30 98 10/02/19 03:14 96 10/02/19 01:22 99 10/02/19 00:53 98 10/02/19 00:33 98 Pain Intensity Left Flank: Pain Intensity: 3 Transfer of Care Handoff Completed per policy Notes Mental Status: alert / awake / arousable Patient Amnestic to Procedure: Yes Nausea / Vomiting: adequately controlled Pain: adequately controlled Airway Patency, RR, SpO2: stable & adequate BP & HR: stable & adequate Hydration State: stable & adequate Anesthetic Complications: no major complications apparent
--- NOTE | 2019-10-02 15:33 | Fluoroscopy Report ---
INTRAOPERATIVE RADIOGRAPHS CLINICAL HISTORY: Left-sided retrograde pyelogram with ureteral stent placement. Fluoroscopy time: 23 seconds. FINDINGS: 5 spot fluoroscopic views of the left abdomen are correlated with abdominal CT dated 2018. The initial image shows cannulation of the distal left ureter. There is left-sided hydrouretero nephrosis. The final 2 images show the proximal and distal ends of a left ureteral stent in place. IMPRESSION: Intraoperative images from a left ureteral stent placement procedure as above. See operat chayo report for detailed findings. Electronically signed by: Abhijeet Prakash M.D. 10/02/2019 3:32 PM
[2019-10-02] MEDS ORDERED: HydrALAZINE HCL 20 MG/ML VIAL IV PRN (16:46)
[2019-10-02] MEDS ORDERED: AMLODIPINE BESYLATE 5 MG TAB PO STA (16:56)
[2019-10-02] MEDS ORDERED: AMLODIPINE BESYLATE 5 MG TAB PO ONE (18:30)
[2019-10-02] MEDS ORDERED: POTASSIUM CHLORIDE 20 MEQ TABCR PO STA (21:23)
[2019-10-03] MEDS ORDERED: cefTRIAXone SODIUM 2,000 MG in DEXTROSE 5% 50 ML IV SCH (03:00)
[2019-10-03] MEDS: ATORVASTATIN 10 MG TAB PO SCH (08:31)
[2019-10-03] MEDS: INSULIN ASPART 100 UNITS/ML 3 ML PEN SC SCH (08:33)
[2019-10-03 08:46] LABS: BUN Creatinine Ratio 11.7 (10-20); Creatinine Clr Calc Pharmacy 58.1 ml/min; Est GFR (African American) 57.6; Est GFR (Non-African American) 49.7; Potassium 4.2 mmol/L (3.5-5.1)
[2019-10-03] MEDS ORDERED: AMLODIPINE BESYLATE 5 MG TAB PO SCH (09:00)
--- NOTE | 2019-10-03 10:26 | Urology Progress Note ---
Date of Service October 03, 2019 Assessment & Plan (1) Urinary tract obstruction by kidney stone: 53 yo M POD #1 s/p acute left stent placement by Dr. Khanna secondary to 2 distal left obstructing stones (8 mm, 4 mm), moderate hydro, FUAD. Encouraged by improved creatinine s/p acute left stent placement. Pt okay for discharge from perspective. Recommend hydration, continue Tamsulosin, prn pain management, prn Pyridium. Avoid NSAIDs due to resolving FUAD. Outpatient follow-up with our service will be arranged to discuss definitive stone management. Thank you for allowing us to participate in the acute care of Mr. Ortega. Please reconsult us with additional questions, concerns or changes in patient status. Subjective 53 yo M POD #1 s/p acute left stent placement by Dr. Khanna secondary to 2 distal left obstructing stones (8 mm, 4 mm), moderate hydro, FUAD. Cr improved to 1.55 this morning. Sitting up in bed, dressed. Feeling well this morning, would like to go home today. Tolerating stent, some mild discomfort. Light pink urine as expected. No urgency, frequency. Review of Systems Review of Systems: All systems reviewed & are unremarkable except as noted in HPI & below Physical Exam Physical Exam: Appears well, NAD AOx3 Normal respiratory effort Abd nondistended No pedal edema Results & Data Vital Signs (Past 12 Hours) Vital Signs Temp Pulse Resp BP BP Pulse Ox 10/03/19 07:35 36.8 C 16 149/75 H 66 L 10/03/19 03:51 36.9 C 70 16 163/82 H 97 10/02/19 22:52 36.8 C 75 16 164/79 H 99 PG Care Time/CCT Total # of Minutes Spent Total Time Spent with Patient: Total time spent is greater than 50% in coordination of care (as documented) at patient's floor/unit and/or counseling patient:
--- NOTE | 2019-10-03 10:39 | Discharge Summary ---
Date of Service October 03, 2019 Admission HPI Per Admitting Provider Mr. Handley is a 53-year-old male with a past medical history of type 2 diabetes mellitus, hypertension and hyperlipidemia who presented to [facility] due to a 4-day history of left lower quadrant pain. The patient states that he has a history of numerous kidney stones in the past, which he generally passes himself. He states that his pain felt very similar to prior kidney stones, and he thought that he would pass it on his own. He presented to [facility] today due to the fact that his pain was not improving. He states that he had to have a stone surgically removed in 1988, and has had 34 episodes of kidney stones between then and now, all of which she has passed himself. He denies any associated fever, but states that he has had chills, and vomited. He denies any dysuria, or hematuria, and states that he has been able to pass urine. Admission Exam Per Admitting Provider Physical Exam Constitutional: WD/WN, vitals as above + well hydrated; no acute distress Eyes: PERRL, conjunctivae normal, anicteric sclerae ENMT: external ear and nose normal, oropharynx normal Respiratory: normal respiratory effort, lungs clear to auscultation Cardiovascular: RRR, no murmur, no edema Gastrointestinal (Abdomen): Percussion/Palpation: + abdomen tender (tender in left lower quadrant and left flank) and abdomen soft; no guarding and abdomen not rigid Musculoskeletal: no cyanosis or clubbing, extremities motor strength 5/5 Skin: no rashes, warm and dry Principal Diagnosis Kidney Stones Discharge Exam Constitutional WD/WN, vitals as above Eyes PERRL, conjunctivae normal, anicteric sclerae ENMT external ear and nose normal, oropharynx normal Neck trachea midline, no thyromegaly Respiratory normal respiratory effort, lungs clear to auscultation Cardiovascular RRR, no murmur, no edema Gastrointestinal (Abdomen) normal bowel sounds, soft, nontender, no hepatosplenomegaly Musculoskeletal no cyanosis or clubbing, extremities motor strength 5/5 Skin no rashes, warm and dry Neurologic PERRL, EOMI, accommodation nl, no face palsy, no dysarthria Psychiatric A+Ox3, euthymic affect Discharge Data Allergies Allergy/AdvReac Type Severity Reaction Status Date / Time No Known Allergies Allergy Unverified 10/02/19 01:24 Consultations 10/02/19 01:52 ED Decision to Admit Stat 10/02/19 03:30 Consult Urology Routine Procedures Performed Operation Date: 10/02/19 11:25 Actual Procedures p and Stent Placement(Left) - Carlos Khanna DO s Cystoscopy, Left Retrograde (Left) - Carlos Khanna DO Fluoroscopy Report Patient: Michele HANDLEY Date: 10/02/19 MR#: [id number]: [address] Acct ID:[id number]: Date: 1965[facility] Zip: [place] [address] Age: 53Location: 3W Sex: M Room/Bed: [facility] Att Phy: Esther Perry MDDiagnosis: KIDNEY STONE, FUAD Sheyla Phy: PCP,NOService Date: 10/02/19 Fam Phy:Interpreting Phy: Abhijeet Prakash MD Admit Phy: Tonya Garza MD Ordering Phy: Carlos Khanna II, DO cc: ~ INTRAOPERATIVE RADIOGRAPHS CLINICAL HISTORY: Left-sided retrograde pyelogram with ureteral stent placement. Fluoroscopy time: 23 seconds. FINDINGS: 5 spot fluoroscopic views of the left abdomen are correlated with abdominal CT dated 10/02/2019. The initial image shows cannulation of the distal left ureter. There is left-sided hydroureteronephrosis. The final 2 images show the proximal and distal ends of a left ureteral stent in place. IMPRESSION: Intraoperative images from a left ureteral stent placement procedure as above. See operative report for detailed findings. Electronically signed by: Abhijeet Prakash M.D. 10/02/2019 3:32 PM Ordered Studies 10/02/19 00:43 CT abd pelvis wo [phone] Scan Report Patient: Michele HANDLEY Date: 10/02/19 MR#: [id number]: [address] Acct ID:[id number]: Date: 1965[facility] Zip: [place] [id number] Age: 53Location: 3W Sex: M Room/Bed: [facility] Att Phy: Orlando Esther MDDiagnosis: KIDNEY STONE, FUAD Sheyla Phy: PCP,NOService Date: 10/02/19 Fam Phy:Interpreting Phy: Rafael Fitch MD Admit Phy: Tonya Garza MD Ordering Phy: Shweta Rose D.O. cc: ~ ABDOMEN AND PELVIS CT WITHOUT CONTRAST CT DOSE: 1229.48 mGy.cm HISTORY: eval for left sided stone TECHNIQUE: Multiaxial CT images of the abdomen and pelvis were performed without contrast. A dose lowering technique was utilized adhering to the principles of ALARA. COMPARISON STUDY: Renal ultrasound 11/02/2017. FINDINGS: Left basilar linear density consistent with subsegmental atelectasis. No pneumoperitoneum. No pneumatosis. No suspicious lytic or blastic osseous lesions. The unenhanced liver, gallbladder, pancreas, and adrenal glands are unremarkable. Punctate calcifications within the spleen. Bilateral perinephric edema, left greater than right. There is a 6 mm stone and a 2 mm stone within the lower pole the left kidney. No right renal calculi. There is left periureteral edema. An 8 mm stone within the distal left ureter resulting in moderate left hydronephrosis. There is an additional 4 mm stone also within the distal left ureter. The bladder is decompressed but appears unremarkable. No re troperitoneal lymphadenopathy. A left retroaortic renal vein. Suboptimal evaluation for bowel pathology due to the lack of intravenous and oral contrast. However, there is no definite bowel wall thickening or obstruction. Normal appendix. Liquid stool is noted. IMPRESSION: 1. There are 2 stones within the distal left ureter including an obstructing 8 mm stone resulting in moderate left hydronephrosis. 2. Left-sided nephrolithiasis. 3. Liquid stool within the colon. No bowel wall thickening or obstruction. 4. Normal appendix. ACT 112: Negative or not required by law. Electronically signed by: Rafael Fitch M.D. 10/02/2019 7:10 AM Dictated: 10/02/19 0706 Transcribed: 10/02/1970510/02/19 14:45 FL retrograde includes kub Routine Hospital Course (1) Urinary tract obstruction by kidney stone: Urinary tract obstruction by kidney stone: Mr. Handley is a 53-year-old male with a past medical history of type 2 diabetes mellitus, hypertension and hyperlipidemia who presented to [facility] due to a 4-day history of left lower quadrant pain and who was admitted for renal calculi requiring stent placement. To do as outpatient: 1. Repeat BMP to follow creatinine 2. Monitor HTN (uncontrolled during much of the hospitalization)--was switched to Amlodipine 10 mg. Holding Lisinopril in the setting of FUAD 3. Consider stopping Amlodipine and starting lisinopril-HCTZ once creatinine has improved as the patient also has DM, would benefit from KENDALL 4. Follow up with urology Left-sided obstructive calculi with hydronephrosis Jez presented with several days of left-sided flank pain, abdominal pain, and nausea/vomiting. He had not had any dysuria. CT of the abdomen and pelvis showed an 8 mm and 4-5 mm obstructing kidney stone with an additional 2 mm nonobstructing stone. Bilateral nephrolithiasis were appreciated, no obstructing stones were appreciated on the right. He was given 1 L of normal saline, 30 mg of Toradol, and Zofran with improvement in his pain. Urology was consulted, and he underwent left ureteral stent placement. [] . He did not show any signs of urinary tract infection and did not require antibiotics on discharge. Acute kidney injury Jez presented with an acute elevation of his creatinine to 2.12 from a normal baseline in the setting of an obstructive kidney stone. His creatinine down trended but remained elevated day of stent placement. He was clinically well and encouraged to hydrate and to follow-up with his PCP for repeat BMP within 1 week. Type 2 diabetes Jez has a history of type 2 diabetes managed with metformin and glyburide. His prior to admission anti-glycemic's were held and he was placed on sliding scale insulin with good glycemic control during admission. Hypertension - uncontrolled during hospitalization. Dc'ed Lisinopril in the setting of FUAD - Switched to Amlodipine 10mg with better control. Consider Lisinopril-HCTZ in the outpatient Hypercholesterolemia - Continue Atorvastatin (2) Hypertension: (3) Kidney stone: (4) Acute kidney injury: (5) Diabetes: Total Time Total Time Spent Total Time Spent (In Minutes): greater than 30 minutes Discharge Plan Discharge Items Patient Disposition: Home - Self-Care Reason For Visit: KIDNEY STONE, FUAD Discharge Diagnosis: Kidney Stone, FUAD Activity: Resume your previous activity Non-emergency contact: Primary Care Provider Call non-emergency contact if: you have any medication questions, your symptoms worsen, your pain is not controlled, your pain is worsening, your pain is unusual for you and you have a fever Follow-up/Referrals: Jose Harrington MD [Primary Care Provider] - 10/16/19 8:30 am (Please, follow up at [facility] with Dr. Harrington on October 16 at 8:30 am. *The office is located in [address] of [facility], next to this hospital. If you need to change this appointment, call the office at [phone].) Diet: Regular Addtl Attending Provider Instructions: You are seen in the hospital for flank pain, nausea, and vomiting and were found to have obstructing kidney stones. You have had a left ureteral stent placed by urology. You did not show signs of urinary tract infection, and have not been discharged on any antibiotics. You have had medications held due to kidney injury as noted below. You experienced a mild kidney injury due to your obstructing kidney stone. Your creatinine (markers of kidney function) was improving at time of discharge, but were not yet completely normal. You should have a BMP repeated within 1 week of discharge to recheck your kidney function. If your kidney function does not improve, you should be seen for further discussion by her primary care doctor. In addition, your blood pressure was not well controlled during your stay. We had to start another different blood pressure medication because Lisinopril can make kidney injury worse in the setting of kidney stones. We want you to continue Amlodipine 10 mg for 1 week and then follow up with your primary care doctor to make additional adjustments, including possibly adding your previous blood pressure medication, but at higher dose. An appointment with your primary care physician is being scheduled for you. If you do not hear from their office within 48 hours, please call them to schedule an appointment. You should be seen within 1 week. If you experience any new, recurrent, or worsening symptoms including fever, chills, sweats, worsening pain, nausea, vomiting, diarrhea, passing out or nearly passing out, chest pain, wheezing, or other concerning symptoms please contact your primary care physician, or call 911 for transport to the emergency department for reevaluation. Pending Studies at Discharge: Yes Studies:: Repeat BMP within 1 week Stand-Alone Forms: [facility], Smoking Cessation Medications and DC Order Prescriptions: New amlodipine [Norvasc] 10 mg tablet 10 mg PO DAILY Qty: 14 RF: 0 oxycodone-acetaminophen [Percocet] 5-325 mg tablet 1 tab PO Q8H Qty: 7 RF: 0 Continued metformin 500 mg tablet 500 mg PO BID RF: 0 glyburide 5 mg tablet 10 mg PO DAILY RF: 0 atorvastatin 10 mg Tablet 10 mg PO DAILY RF: 0 Discontinued lisinopril 10 mg Tablet 10 mg PO DAILY RF: 0 Discharge Orders: Discharge Order (Routine); Ordered 10/03/19 Ordered By: Cuate Blair Admission Data Admit Date/Time: 10/02/19 02:47 Attending Provider: Esther Perry Admit Provider: Tonya Garza Primary Care Provider: Jose Harrington Other Providers: Samantha Carvajal ; Carlos Khanna Other Interventions: Discharge Summary Assessment (RN) Last Done: 10/03/19 10:58 DC Date/Time DO NOT enter until pt leaves facility: 10/03/19 11:15 Supervising Physician Co-Signing Physician Notes Resident Physician Supervision Note: I independently interviewed and examined the patient and verified the roman history and physical, reviewed labs and image studies, discussed the case with the resident Dr. Blair and agree with the findings and care plan. Time spent in discharge 35 min Resident Activity Tracking Resident Involvement: Resident Care Provided Care Provided: Adult Hospital Medicine
== END 2019-10-03 11:15 | disposition home or self-care (01) | DRG 661 ==
LOC: ED 00:30 → SUATTDRO 02:47 → 3W 02:47

== ENCOUNTER 2023-06-17 14:53 | Inpatient (IN) ==
[2023-06-17 15:43] LABS: Basophils # (auto) 0.04 K/uL (0.00-0.20); Basophils % (auto) 0.6 %; Eosinophils # (auto) 0.36 K/uL (0.00-0.50); Hematocrit (blood only) 36.5 % (42.0-52.0); Hemoglobin 12.4 g/dl (14.0-18.0); Immature Granulocytes # (auto) 0.06 K/uL (0.01-0.20); Immature Granulocytes % (auto) 0.8 %; Lymphocytes # (auto) 2.07 K/uL (1.20-3.40); Lymphocytes % (auto) 28.5 %; Mean Corpuscular Hemoglobin 32.3 pg (25.0-34.0); Mean Corpuscular Volume 95.1 fL (80.0-100.0); Mean Platelet Volume 9.7 fL (9.4-12.4); Monocytes # (auto) 0.63 K/uL (0.11-0.59); Monocytes % (auto) 8.7 %; Neutrophils # (auto) 4.11 K/uL (1.40-6.50); Neutrophils % (auto) 56.4 %; Platelet Count 217 K/uL (130-400); RDW Coefficient of Variation 12.6 % (11.5-14.5); RDW Standard Deviation 43.9 fL (36.4-46.3); Red Blood Count 3.84 M/uL (4.70-6.10); White Blood Count 7.27 K/ul (4.8-10.8)
--- NOTE | 2023-06-17 15:46 | Emergency Department Note ---
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 He was called by Dr. Corley of nephrology for a potassium that was greater than 6. He was told to report to the ED for repeat potassium draws and to, for now, hold his spironolactone. The patient admits to feeling weak for the last month. He has no chest pain, he is not short of breath. He is still making urine as before. There has been no cough or congestion. He states he is never had a high potassium before. PMHx/PSHx: See Below SOCIAL HISTORY: See Below. PHYSICAL EXAM: GENERAL: Patient is in no acute distress. HEENT: No acute trauma, normocephalic atraumatic, mucous membranes moist, no nasal congestion. NECK: No stridor, no adenopathy, no meningismus, trachea is midline. LUNGS: A few scattered wheezes heard, no rhonchi. No respiratory distress. Breath sounds equal. HEART: Without murmurs gallops or rubs, regular rate and rhythm. ABDOMEN: Soft, nontender, bowel sounds positive, no peritonitis. EXTREMITIES: No cyanosis or edema, full range of motion of all the joints without pain or difficulty, no signs for acute trauma. NEUROLOGIC: Oriented x 3, no acute motor or sensory deficits, no focal weakness. SKIN: No rash, no jaundice, no diaphoresis. DIFFERENTIAL DIAGNOSIS: Worsening renal failure, hyperkalemia, electrolyte imbalance, dysrhythmia, medication reaction, among others. EMERGENCY DEPARTMENT COURSE/PROCEDURES: Prior/Outside records reviewed: Recent nephrology note. ECG per my interpretation: Indication was hyperkalemia. The ECG shows a normal sinus rhythm with a rate of 72. There is no ST elevation, no PVCs. The T waves are slightly peaked when compared to previous ECGs. The QTc is 411. Continuous Cardiac Monitoring per my interpretation: An order was placed for continuous cardiac monitoring. The monitor shows a rate of 74 with normal sinus rhythm. Critical Care Note: I have personally spent 46 minutes of critical care time in the direct management of this patient. This includes bedside care, interpretation of diagnostic studies, and testing, discussion with consultants, patient, and family members, and other required patient management activities. This 46 minutes is in excess of all separately billable procedures. MEDICAL DECISION MAKING: There is no leukocytosis. The patient is anemic with a hemoglobin of 12.4. The patient does carry history of a mild anemia. There was a normal platelet count. Potassium was quite high at 6.4. Sodium was low at 131. There was an elevation to the creatinine however, the patient carries a history of chronic renal failure. No concerning liver enzyme elevation. ECG showed a sinus rhythm with some subtle T wave peaking consistent with his higher potassium. No acute ischemia by ECG. Given the findings of hyperkalemia, the patient was aggressively managed. He was given a 500 cc saline bolus. He was given an albuterol neb. He received IV sodium bicarb, IV insulin, IV dextrose. He received oral Lokelma. I did speak with the patient about his findings, he is in need of a hospital stay. I did speak with case management, the on-call hospitalist was consulted. DISPOSITION: Patient's presentation and findings warrant a hospital stay. Past Med/Surg History Medical History Acute kidney injury Bilateral nephrolithiasis Diabetes mellitus type 2, controlled Diabetic neuropathy associated with type 2 diabetes mellitus Gout Hyperlipidemia Hyperphosphatemia Hypertension Hyperuricemia Kidney stone hx Microscopic hematuria Resistant hypertension Stage 3b chronic kidney disease Vitamin D deficiency Surgical History Hx of lithotripsy (~11/2020) Family History Father Diabetes Hypertension Sister Diabetes Mother Stroke Myocardial infarction Denies family history of Ovarian cancer Prostate cancer Breast cancer Lung cancer Colorectal cancer Social History Smoking Status: Never smoker Age Started Using Tobacco: 27; Second Hand Exposure: No; Do You Dip or Chew Tobacco: No; Hx Alcohol Use: Yes Alcohol type: beer Alcohol Intake Frequency Comment: beer every night Hx Substance Use: Yes Preferred Language: Albanian Communication Ability: Effective Visual Impairment: Limited Hearing Ability: Normal Iron Plastic Bullet Maker Required: No Beliefs That Will Affect Care: None marital status: Single Current Living Situation: Significant Other current occupational status: 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 do You have: 1 Feels Safe at Home: Yes Childhood Exposure to Second-Hand Smoke: Yes caffeine: Yes (drinks tea about every day ) Dental Care, Regularly: Yes Physical Activity Frequency: Does not Exercise Seatbelt Use: always Sunscreen Use: No Do you think of yourself as: straight/heterosexual Assistive Devices: Glasses Allergies Allergies Allergy/AdvReac Type Severity Reaction Status Date / Time [facility] AdvReac Intermediate nausea/vomi Verified 04/02/23 14:47 ting Home Meds Home Medications Medication Instructions Recorded Confirmed aspirin 81 mg tablet,delayed 81 mg PO QAM 04/12/22 06/17/23 release allopurinol 100 mg tablet 200 mg PO QAM 06/17/23 06/17/23 atorvastatin 20 mg tablet 20 mg PO QAM 06/17/23 06/17/23 lisinopril 40 mg tablet 40 mg PO QAM 06/17/23 06/17/23 metoprolol succinate 50 mg 50 mg PO QAM 06/17/23 06/17/23 tablet,extended release 24 hr spironolactone 25 1 tab PO QAM 06/17/23 06/17/23 mg-hydrochlorothiazide 25 mg tablet Previous Rx's Medication Instructions Recorded pen needle, diabetic 31 gauge x #100 ea 03/03/22 5/16" (BD Ultra-Fine Short Pen Needle) amlodipine 10 mg tablet (Norvasc) 10 mg PO QAM #90 tabs 05/04/22 empagliflozin 10 mg tablet 10 mg PO QAM #90 tabs 12/25/22 (Jardiance) ergocalciferol (vitamin D2) 1,250 50,000 unit PO WEEKLY #12 caps 12/26/22 mcg (50,000 unit) capsule insulin glargine 100 unit/mL (3 14 unit (0.14 mL) subcut QPM #3 mL 04/11/23 mL) subcutaneous pen (Lantus Solostar U-100 Insulin) Results & Data (ED) Vital Signs Vital Signs - 24 hr 06/17/23 14:57 06/17/23 16:12 06/17/23 16:12 Temperature 36.3 C L Temperature Source Temporal Artery Scan Pulse Rate 74 63 62 Pulse Rate from SpO2 Sensor 63 Respiratory Rate 18 15 Respiratory Effort / Characteristics Non-Labored Respiratory Depth Normal Respiratory Pattern Regular Blood Pressure 160/73 H Blood Pressure Mean 102 Pulse Oximetry 100 99 Oxygen Delivery Method Room Air Sepsis Recent Fever Within 48 Hours No Sepsis New/Unexplained Change in Mental Status N/A Sepsis Action Taken by Nursing No Action Required Home Medications Current Medication List: was personally reviewed by me Laboratory Data Attestation: I reviewed the patient's lab results. 06/17/23 15:10 06/17/23 15:10 Lab Results 06/17/23 06/17/23 Range/Units 15:10 15:10 WBC 7.27 (4.8-10.8) K/ul RBC 3.84 L (4.70-6.10) M/uL Hgb 12.4 L (14.0-18.0) g/dl Hct 36.5 L (42.0-52.0) % MCV 95.1 (80.0-100.0) fL MCH 32.3 (25.0-34.0) pg MCHC 34.0 (32.0-36.0) g/dL RDW Std Deviation 43.9 (36.4-46.3) fL RDW Coeff of Kelsey 12.6 (11.5-14.5) % Plt Count 217 (130-400) K/uL MPV 9.7 (9.4-12.4) fL Immature Gran % (Auto) 0.8 % Neut % (Auto) 56.4 % Lymph % (Auto) 28.5 % [place] % (Auto) 8.7 % Eos % (Auto) 5.0 % Baso % (Auto) 0.6 % Neut # (Auto) 4.11 (1.40-6.50) K/uL Lymph # (Auto) 2.07 (1.20-3.40) K/uL [place] # (Auto) 0.63 H (0.11-0.59) K/uL Eos # (Auto) 0.36 (0.00-0.50) K/uL Baso # (Auto) 0.04 (0.00-0.20) K/uL Immature Gran # (Auto) 0.06 (0.01-0.20) K/uL Sodium 131 L (136-145) mmol/L Potassium 6.4 H* (3.5-5.1) mmol/L Chloride 107 (98-107) mmol/L Carbon Dioxide 18 L (21-32) mmol/L Anion Gap 6 (3-11) BUN 53 H (6-23) mg/dl Creatinine 2.73 H D (0.6-1.4) mg/dl Est Cr Clr Drug Dosing 30.8 ml/min Est GFR ( Amer) 28.2 ml/min Est GFR (Non-Af Amer) 24.4 ml/min BUN/Creatinine Ratio 19.4 (10-20) Glucose 100 H (70-99(Fasting)) mg/dl Calcium 9.3 (8.6-10.3) mg/dl Phosphorus 4.6 (2.5-4.9) mg/dl Magnesium 2.4 (1.7-2.4) mg/dl Total Bilirubin 0.4 (0.2-1.0) mg/dl AST 15 (13-39) U/L ALT 17 (7-52) U/L Alkaline Phosphatase 87 (34-104) U/L Total Protein 7.1 (6.0-8.3) gm/dl Albumin 4.5 (3.4-5.0) gm/dl Globulin 2.6 (2.5-4.0) gm/dl Albumin/Globulin Ratio 1.7 (0.9-2) Administered Medications Insulin Aspart (Insulin Aspart Per Unit Charge) 0 units SC ACHS NATALIE Stop: 07/17/23 20:59 Last Admin: 06/17/23 21:06 Dose: 1 units Documented By: MATTHIAS Co-signed By: TMG Insulin Glargine (Lantus Per Unit Charge) 7 units SQ BID NATALIE Stop: 07/17/23 20:59 Last Admin: 06/17/23 21:05 Dose: 7 units Documented By: MATTHIAS Co-signed By: LALITO Sodium Zirconium Cyclosilicate (Sodium Zirconium Cyclosilicate 10 Gm Packet) 10 gm PO BID NATALIE Stop: 06/20/23 09:01 Last Admin: 06/17/23 21:02 Dose: 10 gm Documented By: KS Discontinued Medications Albuterol (Albuterol 0.083% Nebu Soln 3 Ml Vial) 2.5 mg NEB NOW STA; Protocol Stop: 06/17/23 16:24 Last Admin: 06/17/23 16:40 Dose: 2.5 mg Documented By: ZAK Dextrose (Dextrose 50% 50 Ml Syringe) 50 ml IV NOW ONE Stop: 06/17/23 16:24 Last Admin: 06/17/23 16:40 Dose: 50 ml Documented By: ZAK Sodium Chloride (Nss 1000ml) 500 mls @ 999 mls/hr IV .Q31M ONE Stop: 06/17/23 16:53 Last Infusion: 06/17/23 18:01 Dose: 0 mls/hr Documented By: Admin: 06/17/23 16:40 Dose: 999 mls/hr Documented By: ZAK Calcium Gluconate 1,000 mg/ (Dextrose) 60 mls @ 240 mls/hr IV NOW STA Stop: 06/17/23 18:07 Last Infusion: 06/17/23 18:32 Dose: 0 mls/hr Documented By: Admin: 06/17/23 18:04 Dose: 240 mls/hr Documented By: DION Insulin Human Regular (Novolin-R Insulin Per Unit Charge) 10 units IV NOW STA Stop: 06/17/23 16:24 Last Admin: 06/17/23 16:41 Dose: 10 units Documented By: ZAK Co-signed By: ADELIA Sodium Bicarbonate (Sodium Bicarb 8.4% Inj 50 Meq/50 Ml Syr) 50 meq IV NOW STA Stop: 06/17/23 16:24 Last Admin: 06/17/23 16:40 Dose: 50 meq Documented By: ZAK Sodium Zirconium Cyclosilicate (Sodium Zirconium Cyclosilicate 10 Gm Packet) 10 gm PO NOW STA Stop: 06/17/23 16:23 Last Admin: 06/17/23 16:40 Dose: 10 gm Documented By: ZAK Discharge Plan Visit Data Chief Complaint: Abnormal Labs/Diagnostic Testing Stated Complaint: HIGH POTASSIUM, GOT CALL FROM LAB TO COME TO ER ED Provider: Abhijeet Herring Discharge Problem: Acute hyperkalemia, Acute electrocardiogram changes, Anemia, CRF (chronic renal failure) Patient Disposition: Admitted As Inpatient Condition: Serious Discharge Instructions Interventions: ED Discharge Assessment Last Done: 06/17/23 17:32
[2023-06-17] MEDS ORDERED: SODIUM ZIRCONIUM CYCLOSILICATE 10 GM PACKET PO STA (16:22)
[2023-06-17] MEDS ORDERED: DEXTROSE 50% 50 ML SYRINGE IV ONE (16:23)
[2023-06-17] MEDS ORDERED: ALBUTEROL 0.083% NEBU SOLN 3 ML VIAL NEB STA (16:23)
[2023-06-17] MEDS ORDERED: SODIUM CHLORIDE 0.9% 500 ML IV ONE (16:23)
[2023-06-17] MEDS ORDERED: SODIUM BICARB 8.4% INJ 50 MEQ/50 ML SYR IV STA (16:23)
[2023-06-17] MEDS ORDERED: NovoLIN-R INSULIN PER UNIT CHARGE IV STA (16:23)
[2023-06-17 16:35] LABS: Albumin Globulin Ratio 1.7 (0.9-2); Albumin Level 4.5 gm/dl (3.4-5.0); BUN Creatinine Ratio 19.4 (10-20); Bilirubin,Total 0.4 mg/dl (0.2-1.0); Calcium 9.3 mg/dl (8.6-10.3); Creatinine Clr Calc Pharmacy 30.8 ml/min; Est GFR (African American) 28.2 ml/min; Est GFR (Non-African American) 24.4 ml/min; Globulin 2.6 gm/dl (2.5-4.0); Magnesium 2.4 mg/dl (1.7-2.4); Phosphorus 4.6 mg/dl (2.5-4.9); Potassium 6.4 mmol/L (3.5-5.1); Total Protein 7.1 gm/dl (6.0-8.3)
--- NOTE | 2023-06-17 16:52 | History & Physical Report ---
Date of Service June 17, 2023 Assessment & Plan (1) Hyperkalemia: Plan: Hyperkalemia With a history of CKD 3, and hypertension on spironolactone/lisinopril. Suspect due to volume depletion and potassium sparing antihypertensives Spironolactone, lisinopril held Hydrochlorothiazide held for FUAD. amlodipine continued. Hydralazine on-call for breakthrough hypertension while there is held Clinically volume depleted, IVF M continued EKG: Normal sinus rhythm, QTc 411. No ST segment changes. T waves are with peaked appearance. Received Lokelma in ER Calcium gluconate x1 ordered due to peaked T waves Received 10 units IV insulin and dextrose Received sodium bicarb x1 NSS ordered BMP every 4 hours No pulmonary edema, no shortness of breath, no evidence of fluid overload CKD 3 Baseline creatinine: 1.72.3. Admitting creatinine 2.7. Borderline contracted ratio. Renal ultrasound 04/19/2023: No bladder wall thickening, normal renal ultrasound. Renal duplex 04/12/2023: No evidence of renal masses, hydronephrosis, abnormal flow velocities, or aneurysm. Less than 60% stenosis of the renal arteries bilaterally Fluids as noted Trend BMP daily Type II DM Basal bolus SSI while inpatient Goal BSG [id number] Jardiance held Basal bolus based on home Lantus dosing of 14 Hyperlipidemia Continue statin Gout Continue allopurinol DVT prophylaxis: Heparin Diet: Heart healthy, low potassium CODE STATUS: Full code Disposition: PCU for hyperkalemia (2) Resistant hypertension: (3) Hyperphosphatemia: (4) Hyperuricemia: (5) Acute kidney injury: (6) Stage 3b chronic kidney disease: (7) CKD (chronic kidney disease) stage 3, GFR 30-59 ml/min: (8) Hyperlipidemia: (9) Diabetic neuropathy associated with type 2 diabetes mellitus: History of Present Illness Primary Care Provider: DO Hu Gilmant is a 57-year-old male with past medical history of resistant hypertension, hyperuricemia, CKD 3, type II DM, severe poorly controlled hypertension, and hyperlipidemia who had outpatient labs in advance of a nephrology visit and was referred to the ED [facility] after his potassium was found to be greater than 6. Patient is on spironolactone which has been held. Reports that he feels well, has been a little more tired the last month. Otherwise no new symptoms or concerns. Reports he felt okay, was told by his doctor to come in on outpatient labs. No chest pain chest pressure or palpitations. No shortness of breath. No fluid retention or leg swelling. He reports he has been peeing normally. No pain or change in his peeing. He has not had any medication changes recently. Medical History: Reviewed Medications: Reviewed Surgical History: Reviewed Family history: Reviewed Allergies: Reviewed Social History: Reviewed Code Status: Full code Allergies Allergy/AdvReac Type Severity Reaction Status Date / Time dulaglutide [From [facility]] AdvReac Intermediate nausea/vomi Verified 04/02/23 14:47 ting Home Medications Medication Instructions Recorded Confirmed Type pen needle, diabetic 31 gauge x #100 ea 03/03/22 04/02/23 Rx 5/16" (BD Ultra-Fine Short Pen Needle) allopurinol 100 mg tablet 200 mg PO DAILY #180 tabs 04/12/22 04/02/23 Rx aspirin 81 mg tablet,delayed 81 mg PO QAM 04/12/22 04/02/23 History release lisinopril 40 mg tablet 40 mg PO DAILY #90 tabs 04/12/22 04/02/23 Rx amlodipine 10 mg tablet (Norvasc) 10 mg PO QAM #90 tabs 05/04/22 04/02/23 Rx atorvastatin 20 mg tablet 20 mg PO QPM #90 tabs 05/09/22 04/02/23 Rx empagliflozin 10 mg tablet 10 mg PO QAM #90 tabs 12/25/22 04/02/23 Rx (Jardiance) ergocalciferol (vitamin D2) 1,250 50,000 unit PO WEEKLY #12 caps 12/26/22 04/02/23 Rx mcg (50,000 unit) capsule metoprolol succinate 50 mg 50 mg PO DAILY #90 tabs 12/26/22 04/02/23 Rx tablet,extended release 24 hr spironolactone 25 1 tab PO DAILY #30 tabs 03/14/23 04/02/23 Rx mg-hydrochlorothiazide 25 mg tablet insulin glargine 100 unit/mL (3 14 unit (0.14 mL) subcut QPM #3 mL 04/11/23 Rx mL) subcutaneous pen (Lantus Solostar U-100 Insulin) Past Med/Surg History Medical History Acute kidney injury Bilateral nephrolithiasis Diabetes mellitus type 2, controlled Diabetic neuropathy associated with type 2 diabetes mellitus Gout Hyperlipidemia Hyperphosphatemia Hypertension Hyperuricemia Kidney stone hx Microscopic hematuria Resistant hypertension Stage 3b chronic kidney disease Vitamin D deficiency Surgical History Hx of lithotripsy (~11/2020) Family History Father Diabetes Hypertension Sister Diabetes Mother Stroke Myocardial infarction Denies family history of Ovarian cancer Prostate cancer Breast cancer Lung cancer Colorectal cancer Social History Smoking Status: Never smoker Age Started Using Tobacco: 27; Cigarettes Per Day: 1 pack every two days; Second Hand Exposure: No; Do You Dip or Chew Tobacco: No; Hx Alcohol Use: Yes Alcohol type: beer Alcohol Intake Frequency Comment: beer every night Hx Substance Use: Yes Last Used Substance Other:: 05/18 Preferred Language: [place] Communication Ability: Effective Visual Impairment: Limited Hearing Ability: Normal Housing Project Manager Required: No Beliefs That Will Affect Care: None marital status: Single Current Living Situation: Significant Other current occupational status: 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 NAD. Cooperative. HEENT: Atraumatic, normocephalic. PERLAA Pulm: CTAB A&P. -wheezes, -rales, -rhonchi. Symmetrical chest rise. No increased work of breathing. No respiratory distress. Cardiac: RRR, -mrg. Radial pulses intact and symmetrical. Abdominal: Nontender, nondistended, soft. BS present. Ext: no edema. Strength/sensation intact in upper and lower extremities Results & Data Results & Data Vital Signs (Past 12 Hours) Vital Signs Temp Pulse Resp BP Pulse Ox O2 Del Method 06/17/23 16:12 63 06/17/23 14:57 36.3 C L 74 18 160/73 H 100 Room Air PG Care Time/CCT Total # of Minutes Spent Total Time Spent with Patient: Total time spent is greater than 50% in coordination of care (as documented) at patient's floor/unit and/or counseling patient: Coding Level of Care Code 48434 INT INP/OBS CARE 3/75MIN Diagnoses Hyperkalemia E87.5 Resistant hypertension I10 Hyperphosphatemia E83.39 Hyperuricemia E79.0 Acute kidney injury N17.9 Stage 3b chronic kidney disease N18.32 CKD (chronic kidney disease) stage 3, GFR 30-59 ml/min N18.31 Chronic kidney disease stage 3 subtype: stage 3a (GFR 45-59) Hyperlipidemia E78.5 Diabetic neuropathy associated with type 2 diabetes mellitus E11.49 Diabetes mellitus complication detail: with other neurological complication (7) CKD (chronic kidney disease) stage 3, GFR 30-59 ml/min Chronic kidney disease stage 3 subtype: stage 3a (GFR 45-59) Qualified Code(s): N18.31 - Chronic kidney disease, stage 3a (9) Diabetic neuropathy associated with type 2 diabetes mellitus Diabetes mellitus complication detail: with other neurological complication Qualified Code(s): E11.49 - Type 2 diabetes mellitus with other diabetic neurological complication
[2023-06-17] MEDS ORDERED: GLUCAGON FOR INJ 1 MG VIAL SQ PRN (17:48)
[2023-06-17] MEDS ORDERED: CARBOHYDRATES FOR HYPOGLYCEMIA PO PRN (17:48)
[2023-06-17] MEDS ORDERED: ACETAMINOPHEN 325 MG TAB PO PRN (17:48)
[2023-06-17] MEDS ORDERED: GLUCOSE 40% GEL 15 GM TUBE PO PRN (17:48)
[2023-06-17] MEDS ORDERED: STAT IV STA ×2 (17:48)
[2023-06-17] MEDS ORDERED: GLUCOSE 10 TAB/TUBE PO PRN (17:48)
[2023-06-17] MEDS ORDERED: DEXTROSE 50% 50 ML SYRINGE IV PRN (17:48)
[2023-06-17] MEDS ORDERED: hydrALAZINE HCL 20 MG/ML VIAL IV PRN (17:48)
[2023-06-17] MEDS ORDERED: CALCIUM GLUCONATE 10% 1,000 MG in DEXTROSE 5% 50 ML IV STA (17:53)
[2023-06-17 18:37] LABS: BUN Creatinine Ratio 20.3 (10-20); Calcium 9.1 mg/dl (8.6-10.3); Creatinine Clr Calc Pharmacy 34.8 ml/min; Est GFR (African American) 32.8 ml/min; Est GFR (Non-African American) 28.3 ml/min; Potassium 5.4 mmol/L (3.5-5.1)
[2023-06-17] MEDS: SODIUM ZIRCONIUM CYCLOSILICATE 10 GM PACKET PO SCH (21:02)
[2023-06-17] MEDS: LANTUS PER UNIT CHARGE SQ SCH (21:05)
[2023-06-17] MEDS: INSULIN ASPART PER UNIT CHARGE SC SCH (21:06)
[2023-06-17 22:04] LABS: BUN Creatinine Ratio 17.2 (10-20); Calcium 8.8 mg/dl (8.6-10.3); Creatinine Clr Calc Pharmacy 29.5 ml/min; Est GFR (African American) 26.8 ml/min; Est GFR (Non-African American) 23.1 ml/min; Potassium 6.3 mmol/L (3.5-5.1)
[2023-06-17] MEDS ORDERED: DEXTROSE 50% 50 ML SYRINGE IV STA (22:41)
[2023-06-17] MEDS ORDERED: INSULIN HUMAN REGULAR PER UNIT 10 UNITS in SYRINGE 9.9 ML IV STA (22:45)
[2023-06-17] MEDS ORDERED: SODIUM CHLORIDE 0.9% 1,000 ML IV SCH (22:45)
[2023-06-18 01:53] LABS: BUN Creatinine Ratio 19.7 (10-20); Calcium 9.1 mg/dl (8.6-10.3); Creatinine Clr Calc Pharmacy 32.4 ml/min; Est GFR (African American) 30.1 ml/min; Potassium 5.6 mmol/L (3.5-5.1)
[2023-06-18 06:41] LABS: Basophils # (auto) 0.04 K/uL (0.00-0.20); Basophils % (auto) 0.5 %; Eosinophils # (auto) 0.26 K/uL (0.00-0.50); Eosinophils % (auto) 3.2 %; Hematocrit (blood only) 32.7 % (42.0-52.0); Hemoglobin 11.1 g/dl (14.0-18.0); Immature Granulocytes # (auto) 0.05 K/uL (0.01-0.20); Immature Granulocytes % (auto) 0.6 %; Lymphocytes # (auto) 1.81 K/uL (1.20-3.40); Lymphocytes % (auto) 22.1 %; Mean Corpuscular Hgb Conc 33.9 g/dL (32.0-36.0); Mean Corpuscular Volume 94.2 fL (80.0-100.0); Mean Platelet Volume 9.9 fL (9.4-12.4); Monocytes # (auto) 0.69 K/uL (0.11-0.59); Monocytes % (auto) 8.4 %; Neutrophils # (auto) 5.33 K/uL (1.40-6.50); Neutrophils % (auto) 65.2 %; Platelet Count 195 K/uL (130-400); RDW Coefficient of Variation 12.5 % (11.5-14.5); RDW Standard Deviation 43.4 fL (36.4-46.3); Red Blood Count 3.47 M/uL (4.70-6.10); White Blood Count 8.18 K/ul (4.8-10.8)
[2023-06-18 06:46] LABS: BUN Creatinine Ratio 19.4 (10-20); Calcium 8.6 mg/dl (8.6-10.3); Creatinine Clr Calc Pharmacy 36.2 ml/min; Est GFR (African American) 34.4 ml/min; Est GFR (Non-African American) 29.7 ml/min; Potassium 5.3 mmol/L (3.5-5.1)
[2023-06-18] MEDS: amLODIPine BESYLATE 5 MG TAB PO SCH (08:01)
[2023-06-18] MEDS: ASPIRIN 81 MG ECTAB PO SCH (08:01)
[2023-06-18] MEDS: METOPROLOL SUCC 50MG EXT REL TAB PO SCH (08:01)
[2023-06-18] MEDS: allopurinoL 100 MG TAB PO SCH (08:01)
[2023-06-18] MEDS: INSULIN ASPART PER UNIT CHARGE SC SCH ×4 (08:59→20:48)
[2023-06-18] MEDS: LANTUS PER UNIT CHARGE SQ SCH ×2 (09:02→20:55)
[2023-06-18] MEDS: SODIUM ZIRCONIUM CYCLOSILICATE 10 GM PACKET PO SCH ×2 (09:02→20:20)
[2023-06-18] MEDS ORDERED: SODIUM BICARBONATE 8.4% 100 MEQ in WATER, STERILE 1,000 ML IV SCH (11:00)
[2023-06-18] MEDS ORDERED: ACETAMINOPHEN 500 MG TAB PO STA (13:56)
[2023-06-18] MEDS ORDERED: BACLOFEN 10 MG TAB PO ONE (13:57)
[2023-06-18] MEDS: LIDOCAINE 5% 1 PATCH TD SCH (15:33)
[2023-06-18 17:14] LABS: BUN Creatinine Ratio 17.4 (10-20); Calcium 8.5 mg/dl (8.6-10.3); Creatinine Clr Calc Pharmacy 34.8 ml/min; Est GFR (African American) 32.8 ml/min; Est GFR (Non-African American) 28.3 ml/min
--- NOTE | 2023-06-18 20:18 | Hospitalist Progress Note ---
Date of Service June 18, 2023 Assessment & Plan (1) Hyperkalemia: Plan: Peak K level 6.4 This occurred as a result of mild FUAD in the setting of chronic KENDALL and potassium-sparing diuretic usage (spironolactone) K this am now 5.3 s/p IV bicarbonate push, dextrose/regular insulin, calcium IV, and Lokelma 10gm BID He is still mildly acidotic Change IV fluids to bicarbonate infusion with 100meq of bicarbonate per liter run at 75cc/hr recheck K level 6 hours KENDALL & aldactone both stopped recent cortisol level was 9.7 in February 2023 (2) Acute kidney injury: Plan: peak Cr 2.85 now 2.4 baseline 2.1-2.2 cont hydration serial BMPs renal u/s in April showed NO obstruction (3) Resistant hypertension: Plan: BPs mildly elevated despite his KENDALL and aldactone on hold Continue amlodipine, metoprolol succinate HCTZ is on hold right now as well renal artery u/s this summer with NO SHIVANI aldosterone level 4 on 03/14/23 (4) Hyperphosphatemia: Plan: controlled (5) Hyperuricemia: Plan: cont allopurinol (6) Stage 3b chronic kidney disease: Plan: baseline Cr 2.1 to 2.2 BMP tonight and in am (7) Hyperlipidemia: Plan: resume lipitor at discharge (8) Diabetic neuropathy associated with type 2 diabetes mellitus: Plan: typically on lantus + jardiance daily last a1c was 6.2% earlier this year BSGs controlled while here (9) Low back pain: Plan: suspect R SI joint as culprit - very tender over that location today CT lumbar spine in December 2022 -- "CT LUMBAR: Mild to moderate spondylitic spurring throughout the lumbar spine. Moderate to severe L5-S1 intervertebral disc space narrowing. Moderate multilevel facet arthrosis. No acute fracture, subluxation, endplate erosion or suspicious bone lesion identified. Mild to moderate degeneration of the SI joints. Suboptimal evaluation of the central canal and neural foramina by CT technique. At the L4- L5 level there is spondylitic spurring with posterior annular disc bulge and disc osteophyte complex causing moderate central canal stenosis. Mild right with [id number] left neural foraminal narrowing. At L5-S1 the central canal is widely patent however there is moderate right with mild left neural foraminal stenosis." tylenol 1gm po x 1 now baclofen 5mg po x 1 now lidoderm patches stretching heat if desired Admission and Anticipated Discharge Date Admission Date: June 17, 2023 Subjective tele stable overnight patient feels well except for low back pain he has chronic pain that intermittently flares up he "tweeked" the right low back this am states he had diarrhea last week - now resolved mild fatigue the last day or two but no dyspnea, chest pain or VILLEGAS no vomiting or abd pain denies dizziness Review of Systems Review of Systems: musculo - low back pain on right cv - no orthopnea, no edema pulm - no cough Physical Exam Physical Exam: gen - NAD, looks well, pleasant mouth - MMM neck - no JVD heart - RRR, s1 s2 lungs - CTA b/l, no rales abd - soft NT ND BS+ ext - no edema, pulses 2+ b/l musculo - right low back - tender over right SI joint; paraspinal tenderness on right side psych - a/o x 3 Results & Data Results & Data Vital Signs (Past 12 Hours) Vital Signs Temp Pulse Resp BP BP Pulse Ox O2 Del Method 06/18/23 19:39 36.8 C 60 15 134/70 99 Room Air 06/18/23 16:42 36.6 C 57 L 18 146/75 H 98 Room Air 06/18/23 11:32 37 C 63 18 158/72 H 100 Room Air Laboratory Results Laboratory Results - last 24 hr 06/18/23 06/18/23 06/18/23 05:37 05:37 07:54 WBC 8.18 RBC 3.47 L Hgb 11.1 L Hct 32.7 L MCV 94.2 MCH 32.0 MCHC 33.9 RDW Std Deviation 43.4 RDW Coeff of Kelsey 12.5 Plt Count 195 MPV 9.9 Immature Gran % (Auto) 0.6 Neut % (Auto) 65.2 Lymph % (Auto) 22.1 Emery % (Auto) 8.4 Eos % (Auto) 3.2 Baso % (Auto) 0.5 Neut # (Auto) 5.33 Lymph # (Auto) 1.81 Emery # (Auto) 0.69 H Eos # (Auto) 0.26 Baso # (Auto) 0.04 Immature Gran # (Auto) 0.05 Sodium 136 Potassium 5.3 H Chloride 111 H Carbon Dioxide 19 L Anion Gap 6 BUN 45 H Creatinine 2.32 H Est Cr Clr Drug Dosing 36.2 Est GFR ( Amer) 34.4 Est GFR (Non-Af Amer) 29.7 BUN/Creatinine Ratio 19.4 Glucose 101 H POC Glucose 87 Calcium 8.6 06/18/23 06/18/23 06/18/23 12:08 16:21 17:01 WBC RBC Hgb Hct MCV MCH MCHC RDW Std Deviation RDW Coeff of Kelsey Plt Count MPV Immature Gran % (Auto) Neut % (Auto) Lymph % (Auto) Emery % (Auto) Eos % (Auto) Baso % (Auto) Neut # (Auto) Lymph # (Auto) Emery # (Auto) Eos # (Auto) Baso # (Auto) Immature Gran # (Auto) Sodium 131 L Potassium 5.0 Chloride 106 Carbon Dioxide 21 Anion Gap 4 BUN 42 H Creatinine 2.41 H Est Cr Clr Drug Dosing 34.8 Est GFR ( Amer) 32.8 Est GFR (Non-Af Amer) 28.3 BUN/Creatinine Ratio 17.4 Glucose 119 H POC Glucose 135 H 118 H Calcium 8.5 L PG Care Time/CCT Total # of Minutes Spent Total Time Spent with Patient: Total time spent is greater than 50% in coordination of care (as documented) at patient's floor/unit and/or counseling patient: Coding Level of Care Code 41906 SUB INP/OBS CARE 2/35MIN Diagnoses Hyperkalemia E87.5 Acute kidney injury N17.9 Resistant hypertension I10 Hyperphosphatemia E83.39 Hyperuricemia E79.0 Stage 3b chronic kidney disease N18.32 Hyperlipidemia E78.5 Diabetic neuropathy associated with type 2 diabetes mellitus E11.49 Diabetes mellitus complication detail: with other neurological complication Low back pain M54.50 (8) Diabetic neuropathy associated with type 2 diabetes mellitus Diabetes mellitus complication detail: with other neurological complication Qualified Code(s): E11.49 - Type 2 diabetes mellitus with other diabetic neurological complication
[2023-06-18] MEDS ORDERED: MELATONIN 3 MG TAB PO PRN (20:36)
--- NOTE | 2023-06-18 23:04 | Electrocardiogram Report ---
Test Reason : Blood Pressure : / mmHG Vent. Rate : 072 BPM Atrial Rate : 072 BPM P-R Int : 172 ms QRS Dur : 096 ms QT Int : 376 ms P-R-T Axes : 052 059 079 degrees QTc Int : 411 ms Normal sinus rhythm Normal ECG When compared with ECG of 10-MAR-2023 11:58, No significant change was found Confirmed by Jeffry Dial ([id number]) on 06/18/2023 11:03:36 PM Referred By: Confirmed By:Jeffry Dial
[2023-06-19 06:50] LABS: BUN Creatinine Ratio 17.6 (10-20); Calcium 9.1 mg/dl (8.6-10.3); Creatinine Clr Calc Pharmacy 42.3 ml/min; Est GFR (African American) 41.4 ml/min; Est GFR (Non-African American) 35.7 ml/min; Potassium 4.6 mmol/L (3.5-5.1)
[2023-06-19] MEDS: LIDOCAINE 5% 1 PATCH TD SCH (08:20)
[2023-06-19] MEDS: allopurinoL 100 MG TAB PO SCH (08:21)
[2023-06-19] MEDS: amLODIPine BESYLATE 5 MG TAB PO SCH (08:22)
[2023-06-19] MEDS: METOPROLOL SUCC 50MG EXT REL TAB PO SCH (08:22)
[2023-06-19] MEDS: ASPIRIN 81 MG ECTAB PO SCH (08:22)
[2023-06-19] MEDS: INSULIN ASPART PER UNIT CHARGE SC SCH (08:23)
[2023-06-19] MEDS: LANTUS PER UNIT CHARGE SQ SCH (08:24)
[2023-06-19] MEDS ORDERED: lisinopril 40 MG TAB PO STA (10:30)
--- NOTE | 2023-06-19 11:25 | Discharge Summary ---
Date of Service date of admission - June 17, 2023 date of discharge - June 19, 2023 Admission HPI Per Admitting Provider Jez is a 57-year-old male with past medical history of resistant hypertension, hyperuricemia, CKD 3, type II DM, severe poorly controlled hypertension, and hyperlipidemia who had outpatient labs in advance of a nephrology visit and was referred to the ED after his potassium was found to be greater than 6. Patient is on spironolactone which has been held. Reports that he feels well, has been a little more tired the last month. Otherwise no new symptoms or concerns. Reports he felt okay, was told by his doctor to come in on outpatient labs. No chest pain chest pressure or palpitations. No shortness of breath. No fluid retention or leg swelling. He reports he has been peeing normally. No pain or change in his peeing. He has not had any medication changes recently. Principal Diagnosis 1. hyperkalemia - resolved; discharge K level 4.6 2. acute kidney injury 3. chronic kidney disease stage 3b 4. acute right-sided low back pain; SI joint dysfunction? Discharge Exam gen - NAD, pleasant, sitting in chair comfortably mouth - MMM neck - no JVD heart - RRR, s1 s2 lungs - CTA b/l, no rales abd - soft NT ND BS+ ext - no edema, pulses 2+ b/l psych - a/o x 3 Discharge Data Allergies Allergy/AdvReac Type Severity Reaction Status Date / Time dulaglutide [From [facility]] AdvReac Intermediate nausea/vomi Verified 04/02/23 14:47 ting Hospital Course (1) Hyperkalemia: Peak K level 6.4 This occurred as a result of mild FUAD in the setting of chronic KENDALL and potassium-sparing diuretic usage - spironolactone Hyperkalemia resolved with the use of IV bicarbonate infusion, dextrose/regular insulin, calcium IV, and Lokelma 10gm BID Potassium level was 4.6 on day of discharge He was hemodynamically stable throughout the visit Of note - recent cortisol level was 9.7 in February 2023 He was asked to repeat a BMP within 2-3 days of discharge for stability He has scheduled follow-up with Dr Yadira Olivia, [facility], about 1 week post-discharge (2) Acute kidney injury: peak Cr 2.85 Cr on day of discharge was 1.9 baseline Cr per records: 2.1-2.2 renal u/s in April 2023 showed NO obstruction at discharge we recommended the following - * discontinuation of spironolactone * discontinuation of HCTZ * resumption of lisinopril * repeat BMP 2-3 days post-discharge * f/u with Dr Yadira Olivia - nephrology - about 1 week post-discharge (3) Resistant hypertension: BPs were mildly elevated throughout the visit His KENDALL, HCTZ, and aldactone were on hold during the hospitalization He was continued on amlodipine and metoprolol succinate while here 04/12/23 - renal artery u/s without evidence of renal artery stenosis aldosterone level was 4 on 03/14/23 At discharge, since creatinine had normalized and potassium was normal, he was started back on lisinopril He will have repeat BMP shortly after discharge (4) Hyperphosphatemia: controlled level = 4.6 while here (5) Hyperuricemia: cont allopurinol (6) Stage 3b chronic kidney disease: baseline Cr 2.1 to 2.2 Superimposed FUAD during the visit, resolving - with d/c creatinine 1.9 (7) Hyperlipidemia: continue lipitor (8) Diabetic neuropathy associated with type 2 diabetes mellitus: typically on lantus + Jardiance daily last Hba1c was 6.2% earlier this year BSGs controlled during the stay in light of FUAD and volume depletion this admission advised to HOLD Jardiance continue lantus for now (9) Low back pain: suspect R SI joint as culprit - very tender over that location during the stay CT lumbar spine in December 2022 -- "CT LUMBAR: Mild to moderate spondylitic spurring throughout the lumbar spine. Moderate to severe L5-S1 intervertebral disc space narrowing. Moderate multilevel facet arthrosis. No acute fracture, subluxation, endplate erosion or suspicious bone lesion identified. Mild to moderate degeneration of the SI joints. Suboptimal evaluation of the central canal and neural foramina by CT technique. At the L4- L5 level there is spondylitic spurring with posterior annular disc bulge and disc osteophyte complex causing moderate central canal stenosis. Mild right with [id number] left neural foraminal narrowing. At L5-S1 the central canal is widely patent however there is moderate right with mild left neural foraminal stenosis." symptoms improved prior to discharge gave handout on SI joint stretches tylenol prn at home Total Time Total Time Spent Total Time Spent (In Minutes): 40 Discharge Plan Discharge Items Patient Disposition: Home - Self-Care Reason For Visit: HYPERKALEMIA Discharge Diagnosis: 1. Hyperkalemia (high potassium level) - resolved 2. Acute kidney injury (your creatinine level aleshia higher than your usual level) - resolved 3. Chronic kidney disease - discharge creatinine 1.99 4. Chronic low back pain 5. High blood pressure 6. Type 2 diabetes Activity: Resume your previous activity Non-emergency contact: Primary Care Provider and Network Field Engineer Call non-emergency contact if: you have any medication questions, your symptoms worsen and you have a fever Follow-up/Referrals: Yadira Olivia MD [Physician] - 06/26/23 12:00 pm Amado Bartholomew DO [Primary Care Provider] - 07/06/23 3:30 pm Diet: Carb Consistent or DM2 and Low Potassium (2gm) Ambulatory Orders: Basic Metabolic Panel (Routine) Timeframe: [id number] Location: Determined by Patient Ordered By: Arthur Yin Attending Provider Instructions: Mr Ortega, You were hospitalized for high potassium (hyperkalemia). This was likely caused by mild dehydration (your kidney function level - known as creatinine - was higher than usual for you) in the setting of using lisinopril & spironolactone. The potassium normalized with use of multiple medications as well as receiving IV fluids. Your discharge creatinine is 1.99. Your discharge potassium is 4.6. I spoke with Dr Olivia and at this time we are recommending that you STOP your spironolactone-hydrochlorothiazide. Additional recommendations - 1. Follow a low potassium diet - see handout. 2. STOP your Jardiance medication for your diabetes. 3. Have a blood draw this Sunday to recheck your kidney function & potassium. Follow-up - see separate section Return to [facility] if - * you have any concerns about dehydration * you have significant fatigue * you are short of breath * you are having chest pains * any other concerns It was our pleasure to care for you! -Dr Hernadez Pending Studies at Discharge: No Stand-Alone Forms: My [facility], Smoking Cessation Medications and DC Order Prescriptions: Continued (DME) pen needle, diabetic [BD Ultra-Fine Short Pen Needle] 31 gauge x 5/16" needle See Rx Instructions .Route Qty: 100 3RF Rx Instructions: use to inject insulin once daily amlodipine [Norvasc] 10 mg tablet 10 mg PO QAM Qty: 90 3RF ergocalciferol (vitamin D2) 1,250 mcg (50,000 unit) capsule 50,000 unit PO WEEKLY Qty: 12 0RF insulin glargine [Lantus Solostar U-100 Insulin] 100 unit/mL (3 mL) insulin pen 14 unit subcut QPM Qty: 3 2RF aspirin 81 mg tablet,delayed release (DR/EC) 81 mg PO QAM atorvastatin 20 mg tablet 20 mg PO QAM metoprolol succinate 50 mg tablet extended release 24 hr 50 mg PO QAM allopurinol 100 mg tablet 200 mg PO QAM Discontinued Jardiance 10 mg tablet 10 mg PO QAM Qty: 90 2RF spironolacton-hydrochlorothiaz 25-25 mg tablet 1 tab PO QAM Discharge Orders: Discharge Order (Routine); Ordered 06/19/23 Ordered By: Arthur Verdugo/Other Patient Handouts: Low Potassium Diet Dc, ED Hyperkalemia Admission Data Admit Date/Time: 06/17/23 16:50 Attending Provider: Arthur Hernadez Admit Provider: Jose Harrington Primary Care Provider: Amado Bartholomew Other Providers: Jose Harrington Other Interventions: Discharge Summary Assessment (RN) Last Done: 06/19/23 11:38 Coding Level of Care Code 46185 INP/OBS DISCH >30 MIN Diagnoses Hyperkalemia E87.5 Acute kidney injury N17.9 Resistant hypertension I10 Hyperphosphatemia E83.39 Hyperuricemia E79.0 Stage 3b chronic kidney disease N18.32 Hyperlipidemia E78.5 Diabetic neuropathy associated with type 2 diabetes mellitus E11.49 Diabetes mellitus complication detail: with other neurological complication Low back pain M54.50
== END 2023-06-19 11:57 | disposition home or self-care (01) | DRG 641 ==
LOC: ED 14:53 → SUATTDRO 16:50 → 4W 16:50

== ENCOUNTER 2025-05-16 14:58 | Observation (INO) ==
[2025-05-16 15:50] LABS: Hematocrit (blood only) 33.7 % (42.0-52.0); Hemoglobin 11.3 g/dl (14.0-18.0); Immature Granulocytes # (auto) 0.03 K/uL (0.01-0.20); Immature Granulocytes % (auto) 0.4 %; Mean Corpuscular Hemoglobin 32.2 pg (25.0-34.0); Mean Corpuscular Volume 96.0 fL (80.0-100.0); Platelet Count 154 K/uL (130-400); RDW Standard Deviation 47.0 fL (36.4-46.3); Red Blood Count 3.51 M/uL (4.70-6.10); White Blood Count 7.93 K/ul (4.8-10.8)
--- NOTE | 2025-05-16 15:54 | Emergency Department Note ---
History of Present Illness General Chief Complaint: Shortness of Breath/Dyspnea Stated Complaint: SOB Time Seen by Provider: 05/16/25 15:16 History of Present Illness Provider Complaint: shortness of breath and chest pain (Left-sided) Onset (ago): day(s) (2) Severity: moderate Relieved By: + upright position Exacerbated By: + lying flat Known history of: other (End-stage renal disease) Associated symptoms: + cough and + orthopnea; no pain with inspiration, no fever or no hemoptysis Home Medications Medication Instructions Recorded Confirmed Type pen needle, diabetic 31 gauge x #100 ea 03/03/22 12/16/24 Rx 5/16" (BD Ultra-Fine Short Pen Needle) aspirin 81 mg tablet,delayed 81 mg PO QAM 04/12/22 05/16/25 History release sodium polystyrene sulfonate 15 60 ml PO UD #473 mL 03/28/24 05/16/25 Rx gram-sorbitol 20 gram/60 mL oral susp atorvastatin 20 mg tablet 20 mg PO QAM #90 tabs 07/23/24 05/16/25 Rx Medical Thc 1 unit PO UD PRN Anxiety 11/11/24 05/16/25 History allopurinol 100 mg tablet 200 mg PO QAM 11/11/24 05/16/25 History empagliflozin 10 mg tablet 10 mg PO QAM 11/11/24 05/16/25 History (Jardiance) furosemide 20 mg tablet (Lasix) 20 mg PO QAM 11/11/24 05/16/25 History hydralazine 25 mg tablet 25 mg PO TID #90 tabs 12/16/24 05/16/25 Rx oxycodone-acetaminophen 5 mg-325 1 tab PO Q8H PRN pain #30 tabs 12/30/24 05/16/25 Rx mg tablet (Percocet) amlodipine 10 mg tablet (Norvasc) 10 mg PO QAM #90 tabs 01/15/25 05/16/25 Rx lisinopril 40 mg tablet 40 mg PO QAM #90 tabs 01/15/25 05/16/25 Rx metoprolol succinate 50 mg 50 mg PO QAM #90 tabs 01/15/25 05/16/25 Rx tablet,extended release 24 hr ergocalciferol (vitamin D2) 1,250 0 unit PO WEEKLY 05/16/25 05/16/25 History mcg (50,000 unit) capsule Allergies Allergy/AdvReac Type Severity Reaction Status Date / Time dulaglutide [From [facility]] AdvReac Intermediate nausea/vomi Verified 12/30/24 11:05 ting Past Med/Surg History Problem List (Updated 05/16/25 @ 18:41 by Ismael Calixto MD) Chest pain (Acute) Dyspnea S/P vascular surgery End stage renal disease Chronic kidney disease, stage 4 (severe) Low back pain CRF (chronic renal failure) (Acute) Anemia (Acute) Hyperkalemia most recent: 08/2023 Resistant hypertension Bilateral nephrolithiasis Microscopic hematuria Hyperphosphatemia 03/2024 Hyperuricemia hx of gout Gout Vitamin D deficiency Colon cancer screening Nephrotic range proteinuria Hematuria (~04/2021) Diabetic neuropathy associated with type 2 diabetes mellitus (Acute) Diabetes type 2, uncontrolled (Acute) Diabetes mellitus type 2, controlled Hyperlipidemia Hypertension (Acute) Medical History HTN (hypertension) per Nephro, pt noncompliant with medications CKD (chronic kidney disease), stage IV with nephrotic range proteinuria; per Nephro, 2/2 diabetic nephropathy and poorly controlled HTN (pt scheduled for AVF creation however hopes to eventually do PD; he was also seen for consult for transplant; awaiting testing) Lower extremity edema b/l Hx of gout Chronic cough COPD (chronic obstructive pulmonary disease) no pulm/chronic cough Anemia Hyperlipidemia Diabetic neuropathy associated with type 2 diabetes mellitus Diabetes type 2 Hx of renal calculi Hx of colonic polyps Surgical History S/P cystoscopy with ureteral stent placement (11/2019) 09/2019 Hx of colonoscopy with polypectomy Hx of lithotripsy (~11/2020) Family History Father Diabetes Hypertension Sister Diabetes Mother Stroke Myocardial infarction Denies family history of Ovarian cancer Prostate cancer Breast cancer Lung cancer Colorectal cancer Social History Smoking Status: Never smoker Tobacco Type: Cigarettes Age Started Using Tobacco: 16; Age Quit Using Tobacco: 27; packs per day: 0; Second Hand Exposure: No; Do You Dip or Chew Tobacco: No; Hx Alcohol Use: Yes Alcohol type: beer and wine Alcohol Intake Frequency Comment: beer every night Hx Substance Use: Yes Last Used Substance Other:: medical marijuana (advised) Preferred Language: Ugandan Communication Ability: Effective Visual Impairment: No Limitations Hearing Ability: Normal Nurse First Aid Required: No Beliefs That Will Affect Care: None marital status: Single Current Living Situation: Significant Other current occupational status: 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 do You have: 1 Feels Safe at Home: Yes Childhood Exposure to Second-Hand Smoke: Yes Diet: regular caffeine: Yes (drinks tea about every day ) Dental Care, Regularly: Yes Physical Activity Frequency: Does not Exercise Seatbelt Use: always Sunscreen Use: No Do you think of yourself as: straight/heterosexual Gender Identity: Male Assistive Devices: Glasses Physical Exam 2 Vital Signs: Vital Signs - 24 hr 05/16/25 15:11 05/16/25 15:28 05/16/25 15:31 Temperature 36.8 C Temperature Source Temporal Artery Sc an Pulse Rate 63 Pulse Rate [Apical ] 60 Pulse Strength [Ap ical] Respiratory Rate 18 18 Respiratory Effort / Characteristics Non-Labored Sponta neous Respiratory Depth Normal Respiratory Patter n Regular Blood Pressure 183/80 H Blood Pressure [Ri ght Arm] 169/75 H Blood Pressure Kassidy n 114 Blood Pressure Kassidy n [Right Arm] 106 Blood Pressure Pos ition Semi-fowlers Pulse Oximetry 99 94 99 Oxygen Delivery Me thod Room Air Room Air Room Air Sepsis Recent Feve r Within 48 Hours No Sepsis New/Unexpla ined Change in Men zacarias Status N/A Sepsis Action Take n by Nursing No Action Required 05/16/25 15:31 05/16/25 15:31 05/16/25 16:24 Temperature Temperature Source Pulse Rate 61 Pulse Rate [Apical ] Pulse Strength [Ap ical] Respiratory Rate Respiratory Effort / Characteristics SOB on Exertion Respiratory Depth Normal Respiratory Patter n Regular Blood Pressure Blood Pressure [Ri ght Arm] Blood Pressure Kassidy n Blood Pressure Kassidy n [Right Arm] Blood Pressure Pos ition Pulse Oximetry Oxygen Delivery Me thod Room Air Room Air Sepsis Recent Feve r Within 48 Hours Sepsis New/Unexpla ined Change in Men zacarias Status Sepsis Action Take n by Nursing 05/16/25 17:49 Temperature 36.7 C Temperature Source Oral Pulse Rate Pulse Rate [Apical ] 65 Pulse Strength [Ap ical] Normal Respiratory Rate 19 Respiratory Effort / Characteristics Non-Labored Sponta neous Respiratory Depth Normal Respiratory Patter n Regular Blood Pressure Blood Pressure [Ri ght Arm] 177/75 H Blood Pressure Kassidy n Blood Pressure Kassidy n [Right Arm] 109 Blood Pressure Pos ition Pulse Oximetry 99 Oxygen Delivery Me thod Room Air Sepsis Recent Feve r Within 48 Hours Sepsis New/Unexpla ined Change in Men zacarias Status Sepsis Action Take n by Nursing Physical Exam: Physical Exam GENERAL: oriented to person, place, and time. appears well-developed and well- nourished. HENT: Exam performed. - Head: Normocephalic and atraumatic. EYES: Conjunctivae and EOM are normal. Right eye exhibits no discharge. Left eye exhibits no discharge. No scleral icterus. NECK: Normal range of motion. Neck supple. No JVD present. CV: Normal rate, regular rhythm, normal heart sounds and intact distal pulses. 2+ pitting edema of the bilateral lower extremities. Palpable radial pulses bue. PULM/CHEST: Effort normal and breath sounds normal. No respiratory distress. No stridor. no wheezes. no rales. ABD: The abdomen is soft. There is no tenderness. NEURO: Motor and sensation grossly intact. SKIN: Skin is warm and dry. He is not diaphoretic. PSYCH: normal mood and affect. Behavior is normal. Judgment and thought content normal. Course Course 1516: The patient was evaluated in room C3. A complete history and physical exam was performed Cardiac monitoring: An order was placed for continuous cardiac monitoring. The monitor shows a rate of 70 with sinus rhythm interpreted by me 1700: Vital signs stable. Imaging is unremarkable. Labs are significant for an elevated proBNP but no elevated high-sensitivity troponin. Renal function at baseline. [facility]. Administered Medications Discontinued Medications Aspirin (Aspirin 81 Mg Chew) 324 mg PO NOW STA Stop: 05/16/25 17:27 Last Admin: 05/16/25 17:25 Dose: 324 mg Documented By: REBECCA Furosemide (Furosemide Inj 20 Mg/2 Ml Vial) 20 mg IV ONE ONE Stop: 05/16/25 18:16 Last Admin: 05/16/25 18:20 Dose: 20 mg Documented By: REBECCA Medical Decision Making Laboratory Data Attestation: I reviewed the patient's lab results. 05/16/25 15:30 05/16/25 15:30 Lab Results 05/16/25 Range/Units 15:30 WBC 7.93 (4.8-10.8) K/ul RBC 3.51 L (4.70-6.10) M/uL Hgb 11.3 L (14.0-18.0) g/dl Hct 33.7 L (42.0-52.0) % MCV 96.0 (80.0-100.0) fL MCH 32.2 (25.0-34.0) pg MCHC 33.5 (32.0-36.0) g/dL RDW Std Deviation 47.0 H (36.4-46.3) fL RDW Coeff of Kelsey 13.4 (11.5-14.5) % Plt Count 154 (130-400) K/uL MPV 9.9 (9.4-12.4) fL Immature Gran % (Auto) 0.4 % Neut % (Auto) 70.0 % Lymph % (Auto) 17.7 % [place] % (Auto) 7.9 % Eos % (Auto) 3.7 % Baso % (Auto) 0.3 % Neut # (Auto) 5.56 (1.40-6.50) K/uL Lymph # (Auto) 1.40 (1.20-3.40) K/uL [place] # (Auto) 0.63 H (0.11-0.59) K/uL Eos # (Auto) 0.29 (0.00-0.50) K/uL Baso # (Auto) 0.02 (0.00-0.20) K/uL Immature Gran # (Auto) 0.03 (0.01-0.20) K/uL PT 10.0 (9.0-12.0) Seconds INR 0.9 (0.9-1.1) APTT 29 (21-31) Seconds PTT Ratio 1.1 Sodium 138 (136-145) mmol/L Potassium 4.9 (3.5-5.1) mmol/L Chloride 108 H (98-107) mmol/L Carbon Dioxide 24 (21-32) mmol/L Anion Gap 6 (3-11) BUN 57 H (6-23) mg/dl Creatinine 3.93 H (0.6-1.4) mg/dl Est Cr Clr Drug Dosing 21.7 ml/min eGFR 16.57 BUN/Creatinine Ratio 14.5 (10-20) Glucose 123 H (70-99(Fasting)) mg/dl Calcium 8.8 (8.6-10.3) mg/dl Troponin I High Sens 12.4 (0-20) pg/ml B-Natriuretic Peptide 1057 H (0-100) pg/ml Lipase 67 (11-82) U/L Imaging Data Attestation: I personally reviewed and interpreted this imaging study as follows: My Impression: Chest x-ray negative. Airway clear. No pneumothorax. No consolidation. cardiomegaly No cephalization.. No free air under the diaphragm. No fractures of the skeletal structures. Radiologist's Impression: Chest X-Ray 05/16/25 15:17 Chest radiograph, one view History: Chest pain Comparison: None Findings: Single AP view of the chest performed. No focal consolidation or pleural effusion. No pneumothorax. The cardiomediastinal silhouette is within normal limits. Normal pulmonary vascularity. No evidence for lymphadenopathy. No visualized bony or soft tissue abnormality. Impression: Normal chest radiograph Electronically signed by Kristofer Waddell 05-16-2025 3:53 PM ECG Data Attestation: I personally reviewed and interpreted this ECG as follows: Interpretation: Sinus rhythm with rate of 67. SC QRS and QT intervals within normal limits. No ST elevation or ST depression [facility] Narrative 1516: The patient was evaluated in room C3. A complete history and physical exam was performed Cardiac monitoring: An order was placed for continuous cardiac monitoring. The monitor shows a rate of 70 with sinus rhythm interpreted by tx 1700: Vital signs stable. Imaging is unremarkable. Labs are significant for an elevated proBNP but no elevated high-sensitivity troponin. Renal function at baseline. [facility] Impression & Plan Chest pain Discharge Plan Visit Data Chief Complaint: Shortness of Breath/Dyspnea Stated Complaint: SOB ED Provider: Ismael Calixto Discharge Problem: Chest pain Patient Disposition: Admitted As Inpatient Condition: Fair Discharge Instructions Interventions: ED Discharge Assessment Last Done: 05/16/25 18:30 Forms Stand Alone Forms: [facility] Prescriptions Prescriptions: No Action (DME) pen needle, diabetic [BD Ultra-Fine Short Pen Needle] 31 gauge x 5/16" needle See Rx Instructions .Route Qty: 100 3RF Rx Instructions: use to inject insulin once daily atorvastatin 20 mg tablet 20 mg PO QAM Qty: 90 3RF amlodipine [Norvasc] 10 mg tablet 10 mg PO QAM Qty: 90 3RF lisinopril 40 mg tablet 40 mg PO QAM Qty: 90 3RF metoprolol succinate 50 mg tablet extended release 24 hr 50 mg PO QAM Qty: 90 3RF hydralazine 25 mg tablet 25 mg PO TID Qty: 90 6RF sodium polystyrene sulf-sorbtl 15-20 gram/60 mL suspension 60 ml PO UD Qty: 473 6RF Patient Comments: 8/2- per pt, he hasn't used medication in awhile but he was taking once weekly aspirin 81 mg tablet,delayed release (DR/EC) 81 mg PO QAM allopurinol 100 mg tablet 200 mg PO QAM furosemide [Lasix] 20 mg tablet 20 mg PO QAM Jardiance 10 mg tablet 10 mg PO QAM Medical Thc 1 unit 1 unit PO UD PRN (Reason: Anxiety) oxycodone-acetaminophen [Percocet] 5-325 mg tablet 1 tab PO Q8H PRN (Reason: pain) Qty: 30 0RF ergocalciferol (vitamin D2) 1,250 mcg (50,000 unit) capsule 0 unit PO WEEKLY Patient Comments: 05/16- per pt he hasnt used medication in awhile Referrals Referrals: Amado Bartholomew DO [Primary Care Provider] - Discharge Problem: Chest pain Qualifiers: Chest pain type: unspecified Qualified Code(s): R07.9 - Chest pain, unspecified
--- NOTE | 2025-05-16 15:55 | Electrocardiogram Report ---
Test Reason : Blood Pressure : */* mmHG Vent. Rate : 67 BPM Atrial Rate : 67 BPM P-R Int : 200 ms QRS Dur : 88 ms QT Int : 424 ms P-R-T Axes : 38 29 43 degrees QTcB Int : 448 ms Normal sinus rhythm Normal ECG When compared with ECG of 17-Jun-2023 15:06, No significant change was found Confirmed by Kristofer Beth ([id number]) on 05/16/2025 3:54:26 PM Referred By: Confirmed By: Kristofer Beth
[2025-05-16 16:08] LABS: Anion Gap 6.0 (3-11); Blood Urea Nitrogen 57.0 mg/dl (6-23); Calcium 8.8 mg/dl (8.6-10.3); Carbon Dioxide 24.0 mmol/L (21-32); Chloride 108.0 mmol/L (98-107); Creatinine Clr Calc Pharmacy 21.7 ml/min; Glucose 123.0 mg/dl (70-99(Fasting)); Lipase 67.0 U/L (11-82); Potassium 4.9 mmol/L (3.5-5.1); Sodium 138.0 mmol/L (136-145)
[2025-05-16 16:33] LABS: INR 0.9 (0.9-1.1); Partial Thromboplastin Time 29 Seconds (21-31); Prothrombin Time 10.0 Seconds (9.0-12.0)
[2025-05-16] MEDS: ASPIRIN 81 MG CHEW PO STA (17:25)
--- NOTE | 2025-05-16 17:33 | History & Physical Report ---
Date of Service May 16, 2025 Assessment & Plan (1) Dyspnea: Plan: 59yo M with hx of CKD4, poorly controlled HTN, T2DM who presents with dyspnea associated with high BP, worsening orthopnea, and volume overload. Suspected to have combination of mild volume overload with symptomatic HTN. DDx includes CAD, PE. Chest pain, dyspnea No hypoxia, tachycardia - hs trop normal - INitially reported chest discomfort, clarifies that this is more dyspnea and denies pain/pressure Last nuclear stress test 2023 without inducible ischemia Echo pending BNP elevated Chest x-ray does not appear overtly overloaded, but has some congestion and he has JVD. +bilateral lower extremity pitting edema. Dyspnea improves with BP control. Suspect combination of volume overload with symptomatic HTN. DDx includes CAD, volume overload with renal failure, hypertensive. DDx includes PE and does describe some discomfort with deep breathing, but he is not tachycardic, hypoxic, he does not have unilateral leg swelling or hemoptysis, has no recent surgery/trauma, does not have a history of prior PE or DVT. He has ESRD and CTPE risk of worsening his renal function and potentially accelerated progression to HD. D/w patient, will continue tx with cautious diuresis, BP control, and add dopplers to check for DVT. If tachycardic, hypoxic, of suspicion for PE rises would empirically coagulate at that point. No acute ischemic EKG changes Continue metoprolol - Hydralazine uptitrated - Lasix 20mg IV BID17 Type II DM Last A1c in 2022, 6.2% Goal BSG [id number] Jardiance continued, SSI added - Repeat A1C pending Hypertension Continue metoprolol, hydralazine 25 mg p.o. 3 times daily, amlodipine 10 mg every morning Mildly hypertensive on admission CKD 4 Creatinine variable recently around 2.54.1 Continue to follow diabetic nephropathy and poorly controlled hypertension Had fistula placement in the past anticipation of eventual dialysis needs History of kayexelate every 3 days. Will substitute lokelma while inpt DVT PPx: Heparin SQ Diet: REnal/HH CODE: Full Dispo: PCU (2) Chronic kidney disease, stage 4 (severe): (3) End stage renal disease: (4) Diabetic neuropathy associated with type 2 diabetes mellitus: History of Present Illness Primary Care Provider: DO Chris Gilman is a 59-year-old male with a past medical history of CKD, resistant hypertension, type II DM with nephropathy, hyperlipidemia, hypertension. Prior left upper arm AV graft placed in anticipation of eventual hemodialysis needs who presented to the ER 05/16/2025 for right-sided chest pain on exertion and some shortness of breath/orthopnea. Chest x-ray does not show acute pulmonary edema. Hx CKD4 Creatinine variable around 2.5-4.1. He is on Lasix 20 mg a.m. for diuresis. He is not tachycardic or hypoxic. Troponin is normal. BNP is elevated. EKG is normal sinus rhythm, QTc 448. He has bilateral lower extremity pitting edema, he does not have JVD.Last nuclear stress test with [facility] 07/2024: LVEF 70%, no evidence of inducible ischemia. Seen at the bedside. Chris reports he was a little short of breath yesterday afternoon and again today Has had increased swelling in both legs x3 weeks. No extra salt. Has been taking daily lasix 20mg BID. UOP has decreased a little in the last week, sometimes light sometimes a little dark. Had a sensation of palpitations and tightness in his chest this morning. He feels he cannot get a full, deep breath. He feels a little short of breath at rest. He had no chest pressure at time of assessment He reports chest tightness is not pressure, but more a feeling that he cannot catch a full breath No history of blood clots. No leg injuries. No trauma. no long trips or travel. Endorses a little discomfort and dyspnea when trying to take a deep breath. Blood pressure been 160s-180s at home. Has been taking lisinopril, amlodipine, metoprolol, and just started hydralazine. Took all meds thi smorning. Has noted the higher his BP the more short of breath he feels. BP was 205 systolic last week and felt very short of breath with this. Dyspnea seems ot go away when his blood pressure is improved at 160s or less. Medical History: Reviewed Medications: Reviewed Surgical History: Reviewed Family history: Reviewed Allergies: Reviewed Social History: Former tobacco use, rare marijuana use. Drinks a few beers a we ek, ~4 per week total. No issues going several days without alcohol. Code Status: Full Code Allergies Allergy/AdvReac Type Severity Reaction Status Date / Time dulaglutide [From [facility]] AdvReac Intermediate nausea/vomi Verified 12/30/24 11:05 ting Home Medications Medication Instructions Recorded Confirmed Type pen needle, diabetic 31 gauge x #100 ea 03/03/22 12/16/24 Rx 5/16" (BD Ultra-Fine Short Pen Needle) aspirin 81 mg tablet,delayed 81 mg PO QAM 04/12/22 05/16/25 History release sodium polystyrene sulfonate 15 60 ml PO UD #473 mL 03/28/24 05/16/25 Rx gram-sorbitol 20 gram/60 mL oral susp atorvastatin 20 mg tablet 20 mg PO QAM #90 tabs 07/23/24 05/16/25 Rx Medical Thc 1 unit PO UD PRN Anxiety 11/11/24 05/16/25 History allopurinol 100 mg tablet 200 mg PO QAM 11/11/24 05/16/25 History empagliflozin 10 mg tablet 10 mg PO QAM 11/11/24 05/16/25 History (Jardiance) furosemide 20 mg tablet (Lasix) 20 mg PO QAM 11/11/24 05/16/25 History hydralazine 25 mg tablet 25 mg PO TID #90 tabs 12/16/24 05/16/25 Rx oxycodone-acetaminophen 5 mg-325 1 tab PO Q8H PRN pain #30 tabs 12/30/24 05/16/25 Rx mg tablet (Percocet) amlodipine 10 mg tablet (Norvasc) 10 mg PO QAM #90 tabs 01/15/25 05/16/25 Rx lisinopril 40 mg tablet 40 mg PO QAM #90 tabs 01/15/25 05/16/25 Rx metoprolol succinate 50 mg 50 mg PO QAM #90 tabs 01/15/25 05/16/25 Rx tablet,extended release 24 hr ergocalciferol (vitamin D2) 1,250 0 unit PO WEEKLY 05/16/25 05/16/25 History mcg (50,000 unit) capsule Past Med/Surg History Problem List (Updated 05/16/25 @ 17:56 by Jose Harrington MD) Dyspnea S/P vascular surgery End stage renal disease Chronic kidney disease, stage 4 (severe) Low back pain CRF (chronic renal failure) (Acute) Anemia (Acute) Hyperkalemia most recent: 08/2023 Resistant hypertension Bilateral nephrolithiasis Microscopic hematuria Hyperphosphatemia 03/2024 Hyperuricemia hx of gout Gout Vitamin D deficiency Colon cancer screening Nephrotic range proteinuria Hematuria (~04/2021) Diabetic neuropathy associated with type 2 diabetes mellitus (Acute) Diabetes type 2, uncontrolled (Acute) Diabetes mellitus type 2, controlled Hyperlipidemia Hypertension (Acute) Medical History HTN (hypertension) per Nephro, pt noncompliant with medications CKD (chronic kidney disease), stage IV with nephrotic range proteinuria; per Nephro, 2/2 diabetic nephropathy and poorly controlled HTN (pt scheduled for AVF creation however hopes to eventually do PD; he was also seen for consult for transplant; awaiting testing) Lower extremity edema b/l Hx of gout Chronic cough COPD (chronic obstructive pulmonary disease) no pulm/chronic cough Anemia Hyperlipidemia Diabetic neuropathy associated with type 2 diabetes mellitus Diabetes type 2 Hx of renal calculi Hx of colonic polyps Surgical History S/P cystoscopy with ureteral stent placement (11/2019) 09/2019 Hx of colonoscopy with polypectomy Hx of lithotripsy (~11/2020) Family History Father Diabetes Hypertension Sister Diabetes Mother Stroke Myocardial infarction Denies family history of Ovarian cancer Prostate cancer Breast cancer Lung cancer Colorectal cancer Social History Smoking Status: Never smoker Tobacco Type: Cigarettes Age Started Using Tobacco: 16; Age Quit Using Tobacco: 27; packs per day: 0; Second Hand Exposure: No; Do You Dip or Chew Tobacco: No; Hx Alcohol Use: Yes Alcohol type: beer and wine Alcohol Intake Frequency Comment: beer every night Hx Substance Use: Yes Last Used Substance Other:: medical marijuana (advised) Preferred Language: [place] Communication Ability: Effective Visual Impairment: No Limitations Hearing Ability: Normal Crm Architect Required: No Beliefs That Will Affect Care: None marital status: Single Current Living Situation: Significant Other current occupational status: 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 NAD. Cooperative. HEENT: Atraumatic, normocephalic. PERLAA. EoM intact. Vision/hearing intact Pulm: Diminished, crackles in the bases. Grossly clear. Symmetrical chest rise. No increased work of breathing. No respiratory distress. Cardiac: RRR, -mrg. Radial pulses intact and symmetrical. JVD 1cm above clavicle with HJR to the angle of the mandible. Abdominal: Nontender, nondistended, soft. BS present. Ext: B/l 3-4+ pitting edema L AC fistula with good thrill. No overlying warmth/tenderness Results & Data Results & Data Vital Signs (Past 12 Hours) Vital Signs Temp Pulse Pulse Resp BP BP Pulse Ox 05/16/25 16:24 61 05/16/25 15:31 05/16/25 15:31 05/16/25 15:31 60 18 169/75 H 99 05/16/25 15:28 94 05/16/25 15:11 36.8 C 63 18 183/80 H 99 O2 Del Method 05/16/25 16:24 05/16/25 15:31 Room Air 05/16/25 15:31 Room Air 05/16/25 15:31 Room Air 05/16/25 15:28 Room Air 05/16/25 15:11 Room Air PG Care Time/CCT Total # of Minutes Spent Total Time Spent with Patient: Total time spent is greater than 50% in coordination of care (as documented) at patient's floor/unit and/or counseling patient: Coding Level of Care Code 96619 INT INP/OBS CARE 3/75MIN Diagnoses Dyspnea R06.00 Chronic kidney disease, stage 4 (severe) N18.4 End stage renal disease N18.6 Diabetic neuropathy associated with type 2 diabetes mellitus E11.49 Diabetes mellitus complication detail: with other neurological complica tion (4) Diabetic neuropathy associated with type 2 diabetes mellitus Diabetes mellitus complication detail: with other neurological complication Qualified Code(s): E11.49 - Type 2 diabetes mellitus with other diabetic neurological complication
[2025-05-16] MEDS: FUROSEMIDE INJ 20 MG/2 ML VIAL IV ONE (18:20)
[2025-05-16] MEDS ORDERED: GLUCAGON FOR INJ 1 MG VIAL SQ PRN (19:24)
[2025-05-16] MEDS ORDERED: GLUCOSE 10 TAB/TUBE PO PRN (19:24)
[2025-05-16] MEDS ORDERED: PHARMACY GLYCEMIC MGMT CONSULT PRN (19:24)
[2025-05-16] MEDS ORDERED: GLUCOSE 40% GEL 15 GM TUBE PO PRN (19:24)
[2025-05-16] MEDS ORDERED: LABETALOL HCL IV 5 MG/ML 20ML IV PRN (19:24)
[2025-05-16] MEDS ORDERED: CARBOHYDRATES FOR HYPOGLYCEMIA PO PRN (19:24)
[2025-05-16] MEDS ORDERED: DEXTROSE 50% 50 ML SYRINGE IV PRN (19:24)
[2025-05-16] MEDS ORDERED: NITROGLYCERIN SL 0.4 MG/TAB TAB SL PRN (19:24)
[2025-05-16] MEDS ORDERED: ONDANSETRON INJ 2 MG/ML 2 ML VIAL IV PRN (19:24)
[2025-05-16] MEDS: HEPARIN SOD 5,000 UNIT/0.5 ML VIAL SQ SCH (21:04)
[2025-05-16] MEDS: INSULIN ASPART PER UNIT CHARGE SC SCH (21:05)
--- NOTE | 2025-05-17 01:47 | Ultrasound Report ---
EXAM: US venous doppler LE BI CLINICAL HISTORY: R/o DVT TECHNIQUE: Ultrasound examination of bilateral lower extremity veins was performed in real time and duplex. One or more of the following were performed- spectral analysis, resistive index, waveform analysis, and pulsed Doppler. COMPARISON: None. FINDINGS: Normal phasic, non-pulsatile and spontaneous flow is noted in bilateral common femoral, superficial femoral and popliteal veins. Visualized veins demonstrate normal compressibility. No sonographic evidence of acute deep vein thrombosis (DVT) is detected. Right Lower Extremity (RLE): Short segment thrombus seen in lesser saphenous vein posterior to the knee. Portions of the posterior tibial vein (PTV) and anterior tibial vein (ATV) appear non-compressible, suggesting probable thrombosis. Left Lower Extremity (LLE): Portions of the posterior tibial veins appear non-compressible, raising suspicion for thrombosis. Bilateral calf and subcuatenous leg edema seen. IMPRESSION: Right lower extremity: 1. Short-segment thrombosis in the lesser saphenous vein posterior to the knee. 2. Probable thrombosis in the posterior tibial and anterior tibial veins, based on non-compressibility. Left lower extremity: 1. Probable thrombosis in segments of the posterior tibial veins, suggested by non-compressibility. 2. No evidence of acute DVT in the common femoral, superficial femoral, or popliteal veins bilaterally. 3. Bilateral calf and subcutaneous leg edema ? likely secondary to distal venous thrombosis. Disclaimer: DVT could be missed early in the disease when clot burden is minimal. For patients with moderate and high pretest probability of DVT and negative ultrasound, the [employer] clinical guidelines recommend testing with a D-dimer assay or repeat ultrasound in 5-7 days. If symptoms worsen, the Society of radiologists in ultrasound recommends repeating ultrasound even earlier. Electronically signed by Remington Clark 05-17-2025 01:47 AM
[2025-05-17 06:36] LABS: Hematocrit (blood only) 27.8 % (42.0-52.0); Hemoglobin 9.7 g/dl (14.0-18.0); Immature Granulocytes # (auto) 0.02 K/uL (0.01-0.20); Immature Granulocytes % (auto) 0.3 %; Mean Corpuscular Hemoglobin 32.8 pg (25.0-34.0); Mean Corpuscular Volume 93.9 fL (80.0-100.0); Platelet Count 132 K/uL (130-400); RDW Standard Deviation 43.9 fL (36.4-46.3); Red Blood Count 2.96 M/uL (4.70-6.10); White Blood Count 5.80 K/ul (4.8-10.8)
[2025-05-17 07:07] LABS: Anion Gap 9.0 (3-11); Blood Urea Nitrogen 57.0 mg/dl (6-23); Calcium 8.5 mg/dl (8.6-10.3); Carbon Dioxide 20.0 mmol/L (21-32); Chloride 111.0 mmol/L (98-107); Creatinine Clr Calc Pharmacy 24.3 ml/min; Glucose 138.0 mg/dl (70-99(Fasting)); Potassium 4.4 mmol/L (3.5-5.1); Sodium 140.0 mmol/L (136-145)
--- NOTE | 2025-05-17 08:12 | XCELERA ---
[id number] \\[id number]}___[id number]
[2025-05-17] MEDS: METOPROLOL SUCC 50MG EXT REL TAB PO SCH (09:18)
[2025-05-17] MEDS: APIXABAN 5 MG TABLET PO SCH (09:18)
[2025-05-17] MEDS: EMPAGLIFLOZIN 10 MG TAB PO SCH (09:19)
[2025-05-17] MEDS: ATORVASTATIN 20 MG TAB PO SCH (09:19)
[2025-05-17] MEDS: ASPIRIN 81 MG ECTAB PO SCH (09:19)
[2025-05-17] MEDS: FUROSEMIDE INJ 20 MG/2 ML VIAL IV SCH (09:20)
[2025-05-17] MEDS: CALCITRIOL 0.25 MCG CAPSULE PO SCH (11:08)
--- NOTE | 2025-05-17 12:09 | Nephrology Consultation ---
Date of Consultation May 17, 2025 Assessment & Plan (1) Acute kidney injury: (2) Chronic kidney disease, stage 4 (severe): (3) Anemia: (4) Hyperkalemia: (5) Resistant hypertension: (6) Chest pain: (7) Dyspnea: Plan 59 y o m with history of stage IV CKD with high grade proteinuria secondary to diabetic nephropathy, hypertension, dyslipidemia admitted to the hospital poorly volume overload, poorly controlled hypertension and FUAD after presented with 3 weeks history of progressive lower extremity edema and weight gain as well as chest pain and dyspnea on exertion. Creatinine on admission is 4.1 mg/dl baseline creatinine around 2.8-3.0 mg/dl. Cardiac workup including troponin, EKG and 2D echo unremarkable. BNP was elevated. Lower extremity Doppler showed bilateral DVT and started on Eliquis. Blood pressure remain elevated but slight trending improvement. Diuretics was changed to Lasix 20 mg IV twice a day on admission. Respiratory status stable, denies any further dyspnea or chest pain. Appetite decent. --Continue current dose of diuretics and antihypertensives. Will consider changing diuretic to orally tomorrow --Check iron study and repeat CBC, may need IV iron or BINTA. --dose medications for eGFR less than 30, left arm nephrology precaution ( AVF in place) -- Low-salt, heart healthy diet Thank you for allowing me to participate in your patient's care. It was a pleasure to see Chris History of Present Illness Reason for Consultation: FUAD, volume overload, HTN Attending Physician: Emanuel Mann MD, PhD History of Present Illness Mr. Jez Ortega is a 59-year-old male with PMH of stage 4 CKD, resistant hypertension, type II DM with nephropathy, hyperlipidemia admitted to the hospital with dyspnea, volume overload, poorly controlled hypertension and FUAD. Nephrology consult was requested for management of above. EMR records were reviewed in detail during patient's visit. Chris presented to ER on 05/16/2025 with chest pain, dyspnea on exertion, weight gain, lower extremity edema and overall feeling poorly. He reports slowly increasing lower extremity edema over the last 3 weeks despite taking Lasix 20 mg daily. Since admission his blood pressure was noted to be elevated. Chest x-ray did not show any pulmonary congestion but clinically he was noted to be volume overloaded with lower extremity edema. EKG with no acute ST-T changes. Troponins were normal. 2D echo showed EF normal, no valvular abnormality or wall motion abnormality. BNP is elevated.lab was notable for FUAD, creatinine was 4.1, electrolyte was acceptable. Hemoglobin is slightly low. He was started on IV Lasix 20 mg twice a day. Lower extremity Doppler showed bilateral DVT and he was started on Eliquis. Continued on lisinopril, Jardiance, amlodipine, hydralazine and metoprolol. Past medical history is significant for stage 4 CKD, b/l cr around 2.5 to 2.8 mg/dl secondary to diabetic nephropathy with nephrotic range proteinuria, more than 8 g of proteinuria with microscopic hematuria. CT A/P with otherwise normal size kidney with nonobstructing renal calculi, has history of nephrolithiasis for many years, previously required lithotripsy. Serology, paraproteinemia workup and ANTHONY 2RA was negative Denies regular heavy NSAID use. Ex-smoker, history of almost 30 years of smoking. Drinks 3/4 beers each night. Dad had history of diabetes and reached ESRD around age 60. 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 Does not do regular exercise or follow low-salt diet. Had left BC AV fistula on 12/30/2024 but plan to do PD when needed. Had transplant evaluation at [facility] on 06/10/24, all transplant related workup done. Hypertension and diabetes for more than 10 years, h/o noncompliant with medications and was poorly controlled. Lately diabetes became much better controlled, complicated by by neuropathy and proteinuria, no known retinopathy, on Jardiance and insulin. Has dyslipidemia with total cholesterol and triglyceride above 300. no history of coronary artery disease. Chris reports feeling slightly better this morning, chest pain seem to have resolved. Allergies Allergy/AdvReac Type Severity Reaction Status Date / Time dulaglutide [From [facility]] AdvReac Intermediate nausea/vomi Verified 12/30/24 11:05 ting Home Medications Medication Instructions Recorded Confirmed Type pen needle, diabetic 31 gauge x #100 ea 03/03/22 12/16/24 Rx 5/16" (BD Ultra-Fine Short Pen Needle) aspirin 81 mg tablet,delayed 81 mg PO QAM 04/12/22 05/16/25 History release sodium polystyrene sulfonate 15 60 ml PO UD #473 mL 03/28/24 05/16/25 Rx gram-sorbitol 20 gram/60 mL oral susp atorvastatin 20 mg tablet 20 mg PO QAM #90 tabs 07/23/24 05/16/25 Rx Medical Thc 1 unit PO UD PRN Anxiety 11/11/24 05/16/25 History allopurinol 100 mg tablet 200 mg PO QAM 11/11/24 05/16/25 History empagliflozin 10 mg tablet 10 mg PO QAM 11/11/24 05/16/25 History (Jardiance) furosemide 20 mg tablet (Lasix) 20 mg PO QAM 11/11/24 05/16/25 History hydralazine 25 mg tablet 25 mg PO TID #90 tabs 12/16/24 05/16/25 Rx oxycodone-acetaminophen 5 mg-325 1 tab PO Q8H PRN pain #30 tabs 12/30/24 05/16/25 Rx mg tablet (Percocet) amlodipine 10 mg tablet (Norvasc) 10 mg PO QAM #90 tabs 01/15/25 05/16/25 Rx lisinopril 40 mg tablet 40 mg PO QAM #90 tabs 01/15/25 05/16/25 Rx metoprolol succinate 50 mg 50 mg PO QAM #90 tabs 01/15/25 05/16/25 Rx tablet,extended release 24 hr ergocalciferol (vitamin D2) 1,250 0 unit PO WEEKLY 05/16/25 05/16/25 History mcg (50,000 unit) capsule Patient History Medical History HTN (hypertension) per Nephro, pt noncompliant with medications CKD (chronic kidney disease), stage IV with nephrotic range proteinuria; per Nephro, 2/2 diabetic nephropathy and poorly controlled HTN (pt scheduled for AVF creation however hopes to eventually do PD; he was also seen for consult for transplant; awaiting testing) Lower extremity edema b/l Hx of gout Chronic cough COPD (chronic obstructive pulmonary disease) no pulm/chronic cough Anemia Hyperlipidemia Diabetic neuropathy associated with type 2 diabetes mellitus Diabetes type 2 Hx of renal calculi Hx of colonic polyps Surgical History S/P cystoscopy with ureteral stent placement (11/2019) 09/2019 Hx of colonoscopy with polypectomy Hx of lithotripsy (~11/2020) Family History Father Diabetes Hypertension Sister Diabetes Mother Stroke Myocardial infarction Denies family history of Ovarian cancer Prostate cancer Breast cancer Lung cancer Colorectal cancer Social History Smoking Status: Former smoker Tobacco Type: Cigarettes Age Started Using Tobacco: 16; Age Quit Using Tobacco: 27; packs per day: 0; Second Hand Exposure: No; Do You Dip or Chew Tobacco: No; Hx Alcohol Use: Yes Alcohol type: beer Alcohol Intake Frequency Comment: beer every night Hx Substance Use: No Preferred Language: Turkish Communication Ability: Effective Visual Impairment: No Limitations Hearing Ability: Normal Car Inspection [employer] Required: No Beliefs That Will Affect Care: None marital status: Single Current Living Situation: Significant Other current occupational status: 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 Physical Exam Constitutional: WD/WN, vitals as above no acute distress Eyes: + anicteric sclerae Respiratory: no respiratory distress Auscultation: lungs clear to a uscultation bilaterally Cardiovascular: Rate/Rhythm: regular rate and regular rhythm Heart Sounds: normal S1 and normal S2 Extremities: + edema (2 + B/L LE edema) and + AV fistula (left BC AVF with thrill and Bruit) Gastrointestinal (Abdomen): Inspection/Auscultation: abdomen normal to inspection Neurologic: no focal motor deficits Psychiatric: Orientation: alert and oriented x 3 Affect: euthymic affect Results & Data Vital Signs (Past 12 Hours) Vital Signs Temp Pulse Pulse Resp BP Pulse Ox O2 Del Method 05/17/25 09:24 Room Air 05/17/25 08:01 63 05/17/25 07:20 36.5 C 63 18 148/70 H 96 Room Air 05/17/25 03:12 36.6 C 59 L 18 157/76 H 97 Room Air PG Care Time/CCT Total # of Minutes Spent Total Time Spent with Patient: Total time spent is greater than 50% in coordination of care (as documented) at patient's floor/unit and/or counseling patient: Coding Level of Care Code 92883 INT INP/OBS CARE 3/75MIN Diagnoses Acute kidney injury N17.9 Chronic kidney disease, stage 4 (severe) N18.4 Anemia D64.9 Anemia type: unspecified type Hyperkalemia E87.5 Resistant hypertension I10 Chest pain R07.9 Chest pain type: unspecified Dyspnea R06.00 (3) Anemia Anemia type: unspecified type Qualified Code(s): D64.9 - Anemia, unspecified (6) Chest pain Chest pain type: unspecified Qualified Code(s): R07.9 - Chest pain, unspecified
--- NOTE | 2025-05-17 13:40 | Hospitalist Progress Note ---
Date of Service May 17, 2025 Assessment & Plan (1) Chronic kidney disease, stage 4 (severe): Plan: BUN 58, creatinine 4.18, GFR 15.4 mL/min (05/15/2025, 8:34am). BUN 57, creatinine 3.93, GFR 16.6 mL/min (05/16/2025, 3:30pm). BUN 57, creatinine 3.50, GFR 19.0 mL/min (05/17/2025, 5:37am). cf., CKD stage IV with progressive rise in baseline creatinine range from 2.87 mg/dL (02/27/2022, 4:28pm) to 3.43 mg/dL (12/30/2024, 10:47am). Patient reports that he still produces urine on a daily basis, but not in prodigious volumes. Etiology of CKD stage IV is due to long-standing / poorly controlled HTN and long-standing / poorly controlled DM2. I anticipate inexorable decline in renal function to CKD stage V in the next 1-2 years, or less, with subsequent initiation of hemodialysis in this unworried, unwell patient. (2) DVT (deep venous thrombosis): Plan: Bilateral LE venous dopplers (05/16/2025, 7:24pm): Right lower extremity: 1. Short-segment thrombosis in the lesser saphenous vein posterior to the knee. 2. Probable thrombosis in the posterior tibial and anterior tibial veins, based on non-compressibility. Left lower extremity: 1. Probable thrombosis in segments of the posterior tibial veins, suggested by non-compressibility. 2. No evidence of acute DVT in the common femoral, superficial femoral, or popliteal veins bilaterally. 3. Bilateral calf and subcutaneous leg edema ? likely secondary to distal venous thrombosis. V/Q scan (05/16/2025, 8:38am) (to rule out acute PE to explain patient's SOB/VILLEGAS when 05/16/2025, 3:17pm portable CXR reveals no pulmonary vascular congestion to suggest acute CHF as a cause for patient's SOB/VILLEGAS, and as05/17/2025, 6:30am TTE reveals normal LV systolic/diastolic function and normal RV systolic function, only RVSP elevation @ 30-44mm Hb, R/O acute PE). Of note, V/Q scan will not be performed until 05/17/2025 am, as there is no finishing technician in hospital to perform V/Q scan on 05/16/2025. In the interim, patient was started on eliquis 10mg PO bid x 7 days (start date/time, 05/17/2025, 9:18am), to be followed with eliquis 5mg PO bid x 83 days (start date/time, 05/24/2025, 9:18am) to provide active anticoagulation for patient's right posterior tibial/anterior tibial DVT, left posterior tibial DVT. Admission and Anticipated Discharge Date Admission Date: May 16, 2025 Subjective "I feel and breathe 25% better than yesterday (05/16/2025). I don't feel as short of breath today (05/17/2025). Normally, I weigh 185 pounds at home; this morning, Dr. Olmedo came in and weighed me and the scale with me standing up said I weighed 197.3 pounds (05/17/2025, 9:44am). My feet and legs are still swollen, but they don't hurt at all. The same Dr. Olmedo said that I have blood clots in both legs and that he is starting me on Eliquis twice a day today, and that he is going to do a VQ scan to see if I have blood clots in my lungs. I don't have any pain in my chest. Breathing is better like I said today (05/17/2025)." Review of Systems Constitutional: Positive for mild shortness of breath at rest. Positive for mild swelling in bilateral feet and shins. Negative for antecedent/coincident fevers, chills, diaphoresis, cough, wheeze, sore throat, hemoptysis, chest pains, palpitations, pleurisy, nausea, vomiting, diarrhea, abdominal pain, pelvic pain, hematemesis, hematochezia, melena, hematuria, dysuria, frequency, urgency, headaches, dizziness, lightheadedness, visual changes, hearing changes, weakness, falls, syncope, trauma, travel history, sick contacts, or food/drug ingestions novel or new. All other review of systems are reported as negative by the patient on 05/17/2025. Physical Exam Constitutional: General appearance: Comfortable, coherent, cooperative. Wide awake and alert. Not confused, lethargic, or obtunded. Speaks in complete, fluent, and articulate sentences without pause, interruption, cough, or wheeze. HEENT: Normocephalic; atraumatic. EOMI. PERRL No rhinorrhea. No pharyngeal discharge. Neck: Supple, no stridor, bruit, goiter, JVD, or HJR. Lymph: No lymphadenopathy. Chest: Symmetric rise and fall with respirations. Non-tender to palpation. Lungs: Clear to auscultation and percussion. No audible wheeze, pectoriloquy, increase in tactile fremitus, or flatness/dullness to percussion at the bases. Heart: RRR, S1S2, no S3 or S4. Grade II/ early systolic murmur @ LLSB without radiation to the carotids, axilla, or back, and which remains invariant in regards to the respiratory cycle. Abd: Soft, non-tender, non-distended. No rebound, guarding, Sanchez's sign, or organomegaly. Bowel sounds auscultated in all 4 quadrants. Ext: No clubbing, cyanosis. 1+ pitting pedal edema bilaterally with extension to the bilateral upper shins, sparing the knees, hips, and thighs. 2+ pedal pulses bilaterally. LUE AV fistula with bruit, not utilized for hemodialysis as patient is not a hemodialysis patient at this time. Skin: No decubitus ulcer, exanthem, or enanthem Neuro: Alert and oriented in regards to person, place, time, or situation. 5/5 motor strength in all 4 extremities, both proximally and distally. Urology: No menendez catheter. No urethral discharge. Psych: No suicidal ideation. No homicidal ideation. Results & Data Results & Data Vital Signs (Past 12 Hours) Vital Signs Temp Pulse Pulse Resp BP Pulse Ox O2 Del Method 05/17/25 11:00 36.6 C 70 20 135/70 96 Room Air 05/17/25 09:24 Room Air 05/17/25 08:01 63 05/17/25 07:20 36.5 C 63 18 148/70 H 96 Room Air 05/17/25 03:12 36.6 C 59 L 18 157/76 H 97 Room Air Laboratory Results BUN 58, creatinine 4.18, GFR 15.4 mL/min (05/15/2025, 8:34am). BUN 57, creatinine 3.93, GFR 16.6 mL/min (05/16/2025, 3:30pm). BUN 57, creatinine 3.50, GFR 19.0 mL/min (05/17/2025, 5:37am). cf., CKD stage IV with progressive rise in baseline creatinine range from 2.87 mg/dL (02/27/2022, 4:28pm) to 3.43 mg/dL (12/30/2024, 10:47am). Hb 10.7, MCV 95.3, MCHC 33.3 (05/15/2025, 8:34am). Hb 11.3, MCV 96.0, MCHC 33.5 (05/16/2025, 3:30pm). Hb 9.7, MCV 93.9, MCHC 34.9 (05/17/2025, 5:37am). cf., chronic normocytic, normochromic anemia with progressive decline in baseline Hb range from 13.8 g/dL (03/10/2025, 12:07pm) to 9.7 g/dL (05/17/2025, 5:37am). Diagnostic Findings Portable CXR (05/16/2025, 3:17pm): No infiltrate, effusion, cardiomegaly, pulmonary vascular congestion, or pneumothorax (by my review). Bilateral LE venous dopplers (05/16/2025, 7:24pm): Right lower extremity: 1. Short-segment thrombosis in the lesser saphenous vein posterior to the knee. 2. Probable thrombosis in the posterior tibial and anterior tibial veins, based on non-compressibility. Left lower extremity: 1. Probable thrombosis in segments of the posterior tibial veins, suggested by non-compressibility. 2. No evidence of acute DVT in the common femoral, superficial femoral, or popliteal veins bilaterally. 3. Bilateral calf and subcutaneous leg edema ? likely secondary to distal venous thrombosis. V/Q scan (05/16/2025, 8:38am) (to rule out acute PE to explain patient's SOB/VILLEGAS when 05/16/2025, 3:17pm portable CXR reveals no pulmonary va scular congestion to suggest acute CHF as a cause for patient's SOB/VILLEGAS, and as05/17/2025, 6:30am TTE reveals normal LV systolic/diastolic function and normal RV systolic function, only RVSP elevation @ 30-44mm Hb, R/O acute PE). TTE (05/17/2025, 6:30am): 1. LVEF 55-60%. Normal LV diastolic function. 2. RV normal size and systolic function. 3. RVSP elevated at 30-40 mm Hb. PG Care Time/CCT Total # of Minutes Spent Total Time Spent with Patient: Total time spent is greater than 50% in coordination of care (as documented) at patient's floor/unit and/or counseling patient: Coding Level of Care Code 43820 SUB INP/OBS CARE 2/35MIN Diagnoses Chronic kidney disease, stage 4 (severe) N18.4 DVT (deep venous thrombosis) I82.409
--- NOTE | 2025-05-17 14:39 | Pharmacy Report ---
Pharmacy Glycemic Short Note 2 - Date of Service May 17, 2025 - Glycemic Short BSG Results (Last 24 hours): 05/16/25 05/16/25 05/17/25 15:30 20:39 05:37 Glucose 123 H 138 H POC Glucose 93 05/17/25 05/17/25 07:34 11:26 Glucose POC Glucose 132 H 152 H OUTPATIENT ANTIDIABETIC REGIMEN: * Empagliflozin A1c - pending ASSESSMENT: * 59 yo with PMH of HTN, CKD, T2DM. * Adequate glycemic control thus far this admission, BSGs: 123, 93, 132, 152 mg/dL. * Empagliflozin continued on admission. Agree with novolog (CF only for now) as ordered by Hospitalist. * Uncertain degree of outpatient glycemic control, A1c pending. PLAN FOR INPATIENT GLYCEMIC CONTROL: * Basal insulin * hold * Bolus insulin * NovoLog per scale ACHS or Q6hrs while NPO * Goal Range: Low 110 mg/dL - High 160 mg/dL * Correction Factor: 30 mg/dL/unit * Nutritional / Prandial insulin per carb ratio of 1 unit per ___ grams CHO consumed (hold for now)
[2025-05-17 16:35] VITALS: RESP 18
[2025-05-18 06:30] LABS: Hematocrit (blood only) 28.3 % (42.0-52.0); Hemoglobin 10.0 g/dl (14.0-18.0); Immature Granulocytes # (auto) 0.01 K/uL (0.01-0.20); Immature Granulocytes % (auto) 0.2 %; Mean Corpuscular Hemoglobin 33.0 pg (25.0-34.0); Mean Corpuscular Volume 93.4 fL (80.0-100.0); Platelet Count 127 K/uL (130-400); RDW Standard Deviation 43.7 fL (36.4-46.3); Red Blood Count 3.03 M/uL (4.70-6.10); White Blood Count 6.06 K/ul (4.8-10.8)
[2025-05-18 06:56] LABS: Anion Gap 8.0 (3-11); Blood Urea Nitrogen 52.0 mg/dl (6-23); Calcium 8.8 mg/dl (8.6-10.3); Carbon Dioxide 23.0 mmol/L (21-32); Chloride 109.0 mmol/L (98-107); Creatinine Clr Calc Pharmacy 21.5 ml/min; Glucose 93.0 mg/dl (70-99(Fasting)); Iron 108.0 mcg/dl (35-175); Potassium 4.1 mmol/L (3.5-5.1); Sodium 140.0 mmol/L (136-145); Total Iron Binding Cap Calc 259.0 mcg/dl (250-450); Transferrin 185.0 mg/dl (200-360); Transferrin (FE) Percent Satur 42.0 % (20-50)
[2025-05-18 07:15] LABS: Ferritin 229.6 ng/ml (8-388)
[2025-05-18 08:06] LABS: Hemoglobin A1C 5.5 % (4.5-5.6)
[2025-05-18 08:13] VITALS: BP 156/73; TEMP 97.7; O2SAT 97
[2025-05-18] MEDS ORDERED: EPOETIN ALFA 40,000 UNITS/ML VIAL SQ ONE (08:30)
--- NOTE | 2025-05-18 10:00 | Nephrology Progress Note ---
Date of Service May 18, 2025 Assessment & Plan (1) Acute kidney injury: (2) Chronic kidney disease, stage 4 (severe): (3) Anemia: (4) Hyperkalemia: (5) Resistant hypertension: (6) Chest pain: (7) Dyspnea: Plan 59 y o m with history of stage IV CKD with high grade proteinuria secondary to diabetic nephropathy, hypertension, dyslipidemia admitted to the hospital poorly volume overload, poorly controlled hypertension and FUAD after presented with 3 weeks history of progressive lower extremity edema and weight gain as well as chest pain and dyspnea on exertion. Creatinine on admission is 4.1 mg/dl baseline creatinine around 2.8-3.0 mg/dl. Cardiac workup including troponin, EKG and 2D echo unremarkable. BNP was elevated. Lower extremity Doppler showed bilateral DVT and started on Eliquis. Blood pressure remain elevated but slight trending improvement. Diuretics was changed to Lasix 20 mg IV twice a day on admission. Respiratory status stable, denies any further dyspnea or chest pain. Appetite decent. Hemoglobin 10.0, adequate iron stores. Slight worsening of kidney function noted creatinine 3.9 mg/dl --Change Lasix to 20 mg orally twice a day --Epogen 40,000 units x 1 dose today. --dose medications for eGFR less than 30, left arm nephrology precaution ( AVF in place) -- Low-salt, heart healthy diet --Advised to use compression stockings and and keep leg elevated Admission and Anticipated Discharge Date Admission Date: May 16, 2025 Subjective Chris seen and evaluated this morning. Reports improvement in breathing. High urine output on Lasix 20 mg twice a day. Blood pressure remains variable with occasional high blood pressure. Slight worsening of kidney function noted, creatinine 3 point, electrolyte acceptable. Review of Systems Review of Systems: Detailed review of system was done and pertinent positives and negatives are mentioned above. Physical Exam Constitutional: WD/WN, vitals as above no acute distress Eyes: + anicteric sclerae Respiratory: no respiratory distress Auscultation: lungs clear to auscultation bilaterally Cardiovascular: Rate/Rhythm: regular rate and regular rhythm Heart Sounds: normal S1 and normal S2 Extremities: + edema (2 + B/L LE edema) and + AV fistula (left BC AVF with thrill and Bruit) Neurologic: no focal motor deficits Psychiatric: Orientation: alert and oriented x 3 Affect: euthymic affect Results & Data Vital Signs (Past 12 Hours) Vital Signs Temp Pulse Pulse Resp BP Pulse Ox O2 Del Method 05/18/25 08:30 62 05/18/25 08:00 36.5 C 70 156/73 H 97 Room Air 05/18/25 03:04 36.7 C 64 18 172/73 H 96 Room Air 05/17/25 23:23 36.7 C 63 18 141/68 H 97 Room Air PG Care Time/CCT Total # of Minutes Spent Total Time Spent with Patient: Total time spent is greater than 50% in coordination of care (as documented) at patient's floor/unit and/or counseling patient: Coding Level of Care Code 52767 SUB INP/OBS CARE 2/35MIN Diagnoses Acute kidney injury N17.9 Chronic kidney disease, stage 4 (severe) N18.4 Anemia D64.9 Anemia type: unspecified type Hyperkalemia E87.5 Resistant hypertension I10 Chest pain R07.9 Chest pain type: unspecified Dyspnea R06.00 (3) Anemia Anemia type: unspecified type Qualified Code(s): D64.9 - Anemia, unspecified (6) Chest pain Chest pain type: unspecified Qualified Code(s): R07.9 - Chest pain, unspecified
--- NOTE | 2025-05-18 10:02 | Nuclear Medicine Report ---
NM pul perfusion CLINICAL HISTORY: Bilateral leg DVT, SOB/CP COMPARISON STUDY: Chest x-ray dated 05/16/2025 FINDINGS: The patient was injected with 5.4 mCi of technetium 99 M MAA. No moderate or large perfusio n defects are identified. This examination is of low probability of for acute pulmonary embolism. IMPRESSION: Low probability for acute pulmonary embolism. ACT 112: Negative or not required by law. Electronically signed by: Tylor Moctezuma M.D. 05/18/2025 10:00 AM
[2025-05-18] MEDS: FUROSEMIDE 20 MG TAB PO SCH (10:17)
[2025-05-18 10:57] VITALS: PULSE 70
--- NOTE | 2025-05-18 11:00 | Discharge Summary ---
Discharge Summary Date of Service May 18, 2025 Principal Dx & Hospital Course #1 = Principal Diagnosis (1) Chronic kidney disease, stage 4 (severe): BUN 58, creatinine 4.18, GFR 15.4 mL/min (05/15/2025, 8:34am). BUN 57, creatinine 3.93, GFR 16.6 mL/min (05/16/2025, 3:30pm). BUN 57, creatinine 3.50, GFR 19.0 mL/min (05/17/2025, 5:37am). BUN 52, creatinine 3.89, GFR 16.8 mL/min (05/18/2025, 5:51am). cf., CKD stage IV with progressive rise in baseline creatinine range from 2.87 mg/dL (02/27/2022, 4:28pm) to 3.43 mg/dL (12/30/2024, 10:47am). Patient reports that he still produces urine on a daily basis, but not in prodigious volumes. Etiology of CKD stage IV is due to long-standing / poorly controlled HTN and long-standing / poorly controlled DM2. Patient received home-scheduled amlodipine 10mg PO qam, hospital-started furosemide 20mg PO bid (which replaced his home-scheduled furosemide 20mg PO daily), hospital-started hydralazine 50mg PO tid (which replaced his home- scheduled hydralazine 25mg PO tid), home-scheduled lisinopril 40mg PO qam, and home-scheduled metoprolol succinate XL 50mg PO qam while in [facility]. Patient will continue all 5 medications on hospital discharge home on 05/18/2025. Patient was discharged home on 05/18/2025 with electronic prescriptions transmitted to his [id number], [address] [address], on 05/18/2025 for: a. furosemide 20mg PO bid, #60 tablets, no refills. b. hydralazine 50mg PO tid, #90 tablets, no refills. Of note, I anticipate inexorable decline in patient's renal function from the current CKD stage IV to CKD stage V in the next 1-2 years, or less, with subsequent initiation of hemodialysis in this unworried, unwell patient. (2) DVT (deep venous thrombosis): Bilateral LE venous dopplers (05/16/2025, 7:24pm): Right lower extremity: 1. Short-segment thrombosis in the lesser saphenous vein posterior to the knee. 2. Probable thrombosis in the posterior tibial and anterior tibial veins, based on non-compressibility. Left lower extremity: 1. Probable thrombosis in segments of the posterior tibial veins, suggested by non-compressibility. 2. No evidence of acute DVT in the common femoral, superficial femoral, or popliteal veins bilaterally. 3. Bilateral calf and subcutaneous leg edema ? likely secondary to distal venous thrombosis. V/Q scan (05/16/2025, 8:38am): 1. Low probability of acute PE. TTE (05/17/2025, 6:30am): 1. LVEF 55-60%. Normal LV diastolic function. 2. RV normal size and systolic function. 3. RVSP elevated at 30-40 mm Hb. Admission HPI Per Admitting Provider Chris is a 59-year-old male with a past medical history of CKD, resistant hypertension, type II DM with nephropathy, hyperlipidemia, hypertension. Prior left upper arm AV graft placed in anticipation of eventual hemodialysis needs who presented to the ER 05/16/2025 for right-sided chest pain on exertion and some shortness of breath/orthopnea. Chest x-ray does not show acute pulmonary edema. Hx CKD4 Creatinine variable around 2.5-4.1. He is on Lasix 20 mg a.m. for diuresis. He is not tachycardic or hypoxic. Troponin is normal. BNP is elevated. EKG is normal sinus rhythm, QTc 448. He has bilateral lower extremity pitting edema, he does not have JVD.Last nuclear stress test with [facility] 07/2024: LVEF 70%, no evidence of inducible ischemia. Seen at the bedside. Chris reports he was a little short of breath yesterday afternoon and again today Has had increased swelling in both legs x3 weeks. No extra salt. Has been taking daily lasix 20mg BID. UOP has decreased a little in the last week, sometimes light sometimes a little dark. Had a sensation of palpitations and tightness in his chest this morning. He feels he cannot get a full, deep breath. He feels a little short of breath at rest. He had no chest pressure at time of assessment He reports chest tightness is not pressure, but more a feeling that he cannot catch a full breath No history of blood clots. No leg injuries. No trauma. no long trips or travel. Endorses a little discomfort and dyspnea when trying to take a deep breath. Blood pressure been 160s-180s at home. Has been taking lisinopril, amlodipine, metoprolol, and just started hydralazine. Took all meds thi smorning. Has noted the higher his BP the more short of breath he feels. BP was 205 systolic last week and felt very short of breath with this. Dyspnea seems ot go away when his blood pressure is improved at 160s or less. Medical History: Reviewed Medications: Reviewed Surgical History: Reviewed Family history: Reviewed Allergies: Reviewed Social History: Former tobacco use, rare marijuana use. Drinks a few beers a week, ~4 per week total. No issues going several days without alcohol. Code Status: Full Code Discharge Exam Constitutional General appearance: Comfortable, coherent, cooperative. Wide awake and alert. Not confused, lethargic, or obtunded. Speaks in complete, fluent, and articulate sentences without pause, interruption, cough, or wheeze. HEENT: Normocephalic; atraumatic. EOMI. PERRL No rhinorrhea. No pharyngeal discharge. Neck: Supple, no stridor, bruit, goiter, JVD, or HJR. Lymph: No lymphadenopathy. Chest: Symmetric rise and fall with respirations. Non-tender to palpation. Lungs: Clear to auscultation and percussion. No audible wheeze, pectoriloquy, increase in tactile fremitus, or flatness/dullness to percussion at the bases. Heart: RRR, S1S2, no S3 or S4. Grade II/ early systolic murmur @ LLSB without radiation to the carotids, axilla, or back, and which remains invariant in regards to the respiratory cycle. Abd: Soft, non-tender, non-distended. No rebound, guarding, Sanchez's sign, or organomegaly. Bowel sounds auscultated in all 4 quadrants. Ext: No clubbing, cyanosis. 1+ pitting pedal edema bilaterally with extension to the bilateral upper shins, sparing the knees, hips, and thighs. 2+ pedal pulses bilaterally. LUE AV fistula with bruit, not utilized for hemodialysis as patient is not a hemodialysis patient at this time. Skin: No decubitus ulcer, exanthem, or enanthem Neuro: Alert and oriented in regards to person, place, time, or situation. 5/5 motor strength in all 4 extremities, both proximally and distally. Urology: No menendez catheter. No urethral discharge. Psych: No suicidal ideation. No homicidal ideation. Discharge Plan Discharge Items Patient Disposition: Home - Self-Care Reason For Visit: DYSPNEA, CHF, ESRD Discharge Diagnosis: 1. No CHF. 2. No ESRD / no CKD stage V / not on hemodialysis, with LUE AV fistula in situ, in anticipation that patient will need hemodialysis in the next 1-2 years. 3. Progressively worsening CKD stage IV with admission creatinine 4.18 mg/dL, GFR 15.39 mL/min (05/15/2025, 8:34am) and discharge creatinine 3.89, GFR 16.78 mL/min (05/18/2025, 5:51am). 4. Acute right posterior/anterior tibial DVT, acute left posterior tibial DVT, acute right lesser saphenous vein thrombus (as noted on 05/16/2025, 7:24pm bilateral lower extremity venous dopplers). Condition on Discharge: Fair Activity: Resume your previous activity Lifting: Gradually increase as tolerated Bathing: No limitations Sexual Activity: When tolerated Exercise/Sports: Gradually increase as tolerated Driving/Machine Use: No limitations Weightbearing: Full weightbearing Non-emergency contact: Primary Care Provider Call non-emergency contact if: you have any medication questions Follow-up/Referrals: Amado Bartholomew, [Primary Care Provider] - Diet: Heart Healthy, Low Potassium (2gm) and Low Sodium (2gm) Fluids: 1200ml (5 cups) Addtl Attending Provider Instructions: See your Zumba Instructor Dr. Yadira Olivia within 5-7 days of hospital discharge for repeat creatinine level testing and to discuss when to start hemodialysis. In the interim, continue taking lasix 20mg PO bid at home. Pending Studies at Discharge: Yes Studies:: See your Zumba Instructor Dr. Yadira Olivia within 5-7 days of hospital discharge for repeat creatinine level testing and to discuss when to start hemodialysis. In the interim, continue taking lasix 20mg PO bid at home. Stand-Alone Forms: My [facility] [employer], Smoking Cessation Medications and DC Order Prescriptions: New hydralazine 50 mg Tablet 50 mg PO TID Qty: 90 0RF furosemide 20 mg Tablet 20 mg PO [id number] Qty: 60 0RF Eliquis 5 mg tablet 10 mg PO Q12H Qty: 22 0RF Rx Instructions: Take 2 tablets on 05/18/2025, 10:00pm. Then take 2 tablets on 05/19/2025, 1 0:00am, 10:00pm; 2 tablets on 05/20/2025, 10:00am, 10:00pm; 2 tablets on 05/21/2025, 10:00am, 10:00pm; 2 tablets on 05/22/2025, 10:00am, 10:00pm; 2 tablets on 05/23/2025, 10:00am, 10:00pm. Eliquis 5 mg tablet 5 mg PO Q12H Qty: 166 0RF Rx Instructions: Take 1 tablet by mouth every 12 hours, starting on 05/24/2025, 10:00am, stop ping AFTER 07/05/2025, 10:00pm dose. Continued (DME) pen needle, diabetic [BD Ultra-Fine Short Pen Needle] 31 gauge x 5/16" needle See Rx Instructions .Route Qty: 100 3RF Rx Instructions: use to inject insulin once daily atorvastatin 20 mg tablet 20 mg PO QAM Qty: 90 3RF amlodipine [Norvasc] 10 mg tablet 10 mg PO QAM Qty: 90 3RF lisinopril 40 mg tablet 40 mg PO QAM Qty: 90 3RF metoprolol succinate 50 mg tablet extended release 24 hr 50 mg PO QAM Qty: 90 3RF sodium polystyrene sulf-sorbtl 15-20 gram/60 mL suspension 60 ml PO UD Qty: 473 6RF Patient Comments: /- per pt, he hasn't used medication in awhile but he was taking once weekly aspirin 81 mg tablet,delayed release (DR/EC) 81 mg PO QAM allopurinol 100 mg tablet 200 mg PO QAM Jardiance 10 mg tablet 10 mg PO QAM Medical Thc 1 unit 1 unit PO UD PRN (Reason: Anxiety) oxycodone-acetaminophen [Percocet] 5-325 mg tablet 1 tab PO Q8H PRN (Reason: pain) Qty: 30 0RF ergocalciferol (vitamin D2) 1,250 mcg (50,000 unit) capsule 0 unit PO WEEKLY Patient Comments: 05/16- per pt he hasnt used medication in awhile Discontinued hydralazine 25 mg tablet 25 mg PO TID Qty: 90 6RF furosemide [Lasix] 20 mg tablet 20 mg PO QAM Discharge Orders: Discharge Order (Routine); Ordered 05/18/25 Ordered By: Emanuel Mann Admission Data Admit Date/Time: 05/16/25 18:07 Attending Provider: Emanuel Mann Admit Provider: Jose Harrington Primary Care Provider: Amado Bartholomew Other Providers: Jose Harrington; Carlos Corley Hospital Stay Data Consultations 05/16/25 16:59 ED Decision to Admit Stat 05/16/25 19:24 Consult Nephrology Routine Diagnostic Imagining Performed 05/16/25 19:24 US venous doppler LE BI Urgent Pending Results Patient Have Any Pending Studies at Discharge: Yes Discharge Instructions Given to Patient (Per Discharging Provider) See your Zumba Instructor Dr. Yadira Olivia within 5-7 days of hospital discharge for repeat creatinine level testing and to discuss when to start hemodialysis. In the interim, continue taking lasix 20mg PO bid at home. Total Time Total Time Spent Total Time Spent (In Minutes): 35 minutes. Of this time period, 19 minutes were spent in coordinating patient's discharge. Coding Level of Care Code 67113 INP/OBS DISCH >30 MIN Diagnoses Chronic kidney disease, stage 4 (severe) N18.4 DVT (deep venous thrombosis) I82.409
[2025-05-18] MEDS ORDERED: SODIUM ZIRCONIUM CYCLOSILICATE 10 GM PACKET PO SCH (18:00)
== END 2025-05-18 12:22 | disposition home or self-care (01) ==
LOC: ED 14:58 → 2E 18:07 → SUATTDRO 18:07 → INTOOBSV 18:07 → 2E 18:30

== ENCOUNTER 2025-05-26 08:17 | Observation (INO) ==
--- NOTE | 2025-05-26 09:01 | Emergency Department Note ---
History of Present Illness General Chief complaint: Abnormal Labs/Diagnostic Testing Stated complaint: KIDNEY FUNCTION OFF, BLOODWORK FROM FRI ABNORMAL Time Seen by Provider: 05/26/25 08:25 Source: patient Mode of arrival: ambulatory History of Present Illness Provider complaint: Elevated kidney function Home Medications Medication Instructions Recorded Confirmed Type pen needle, diabetic 31 gauge x #100 ea 03/03/22 05/21/25 Rx 5/16" (BD Ultra-Fine Short Pen Needle) aspirin 81 mg tablet,delayed 81 mg PO QAM 04/12/22 05/21/25 History release atorvastatin 20 mg tablet 20 mg PO QAM #90 tabs 07/23/24 05/21/25 Rx Medical Thc 1 unit PO UD PRN Anxiety 11/11/24 05/21/25 History allopurinol 100 mg tablet 200 mg PO QAM 11/11/24 05/21/25 History oxycodone-acetaminophen 5 mg-325 1 tab PO Q8H PRN pain #30 tabs 12/30/24 05/21/25 Rx mg tablet (Percocet) amlodipine 10 mg tablet (Norvasc) 10 mg PO QAM #90 tabs 01/15/25 05/21/25 Rx lisinopril 40 mg tablet 40 mg PO QAM #90 tabs 01/15/25 05/21/25 Rx metoprolol succinate 50 mg 50 mg PO QAM #90 tabs 01/15/25 05/21/25 Rx tablet,extended release 24 hr ergocalciferol (vitamin D2) 1,250 0 unit PO WEEKLY 05/16/25 05/21/25 History mcg (50,000 unit) capsule apixaban 5 mg tablet (Eliquis) 5 mg PO Q12H Acute bilateral 05/18/25 05/21/25 Rx posterior tibial DVT #166 tabs apixaban 5 mg tablet (Eliquis) 10 mg (2 x 5 mg) PO Q12H acute 05/18/25 05/21/25 Rx bilateral posterior tibial DVT #22 tabs furosemide 20 mg tablet 20 mg PO BID17 #60 tabs 05/18/25 05/21/25 Rx hydralazine 50 mg tablet 50 mg PO TID #90 tabs 05/18/25 05/21/25 Rx empagliflozin 10 mg tablet 10 mg PO QAM #30 tabs 05/21/25 05/21/25 Rx (Jardiance) sodium polystyrene sulfonate 15 60 ml PO UD #473 mL 05/21/25 05/21/25 Rx gram-sorbitol 20 gram/60 mL oral susp Allergies Allergy/AdvReac Type Severity Reaction Status Date / Time dulaglutide [From [facility]] AdvReac Intermediate nausea/vomi Verified 05/21/25 14:29 ting Past Med/Surg History Problem List (Updated 05/26/25 @ 11:51 by Linda Mcghee DO) DVT (deep venous thrombosis) Chest pain (Acute) Dyspnea S/P vascular surgery End stage renal disease (Acute) Chronic kidney disease, stage 4 (severe) Low back pain CRF (chronic renal failure) (Acute) Anemia (Acute) Hyperkalemia most recent: 08/2023 Resistant hypertension Bilateral nephrolithiasis Microscopic hematuria Hyperphosphatemia 03/2024 Hyperuricemia hx of gout Gout Vitamin D deficiency Colon cancer screening Nephrotic range proteinuria Hematuria (~04/2021) Diabetic neuropathy associated with type 2 diabetes mellitus (Acute) Diabetes type 2, uncontrolled (Acute) Diabetes mellitus type 2, controlled Hyperlipidemia Hypertension (Acute) Medical History HTN (hypertension) per Nephro, pt noncompliant with medications CKD (chronic kidney disease), stage IV with nephrotic range proteinuria; per Nephro, 2/2 diabetic nephropathy and poorly controlled HTN (pt scheduled for AVF creation however hopes to eventually do PD; he was also seen for consult for transplant; awaiting testing) Lower extremity edema b/l Hx of gout Chronic cough COPD (chronic obstructive pulmonary disease) no pulm/chronic cough Anemia Hyperlipidemia Diabetic neuropathy associated with type 2 diabetes mellitus Diabetes type 2 Hx of renal calculi Hx of colonic polyps Surgical History S/P cystoscopy with ureteral stent placement (11/2019) 09/2019 Hx of colonoscopy with polypectomy Hx of lithotripsy (~11/2020) Family History Father Diabetes Hypertension Sister Diabetes Mother Stroke Myocardial infarction Denies family history of Ovarian cancer Prostate cancer Breast cancer Lung cancer Colorectal cancer Social History Smoking Status: Never smoker Tobacco Type: Cigarettes Age Started Using Tobacco: 16; Age Quit Using Tobacco: 27; packs per day: 0; Second Hand Exposure: No; Do You Dip or Chew Tobacco: No; Hx Alcohol Use: Yes Alcohol type: beer Alcohol Intake Frequency Comment: beer every night Hx Substance Use: No Preferred Language: Mongolian Communication Ability: Effective Visual Impairment: No Limitations Hearing Ability: Normal Bricklayer Tender Required: No Beliefs That Will Affect Care: None marital status: Single Current Living Situation: Significant Other current occupational status: 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 do You have: 1 Feels Safe at Home: Yes Childhood Exposure to Second-Hand Smoke: Yes Diet: regular caffeine: Yes (drinks tea about every day ) Dental Care, Regularly: Yes Physical Activity Frequency: Does not Exercise Seatbelt Use: always Sunscreen Use: No Do you think of yourself as: straight/heterosexual Gender Identity: Male Assistive Devices: Glasses Review of Systems A total of 10 systems reviewed and were otherwise negative Physical Exam Vital Signs Vital Signs - 24 hr 05/26/25 08:19 05/26/25 08:28 05/26/25 10:00 Temperature 36.3 C L Temperature Source Temporal Artery Scan Pulse Rate 70 71 Pulse Rate [Apical] 65 Respiratory Rate 20 13 Respiratory Effort / Characteristics Non-Labored Spontaneous Non-Labored Spontaneous Respiratory Depth Normal Normal Respiratory Pattern Regular Blood Pressure 169/71 H Blood Pressure [Right Arm] 118/83 Blood Pressure Mean 103 Blood Pressure Mean [Right Arm] 94 Blood Pressure Position [Right Arm] Semi-fowlers Pulse Oximetry 100 98 Oxygen Delivery Method Room Air Room Air Sepsis Recent Fever Within 48 Hours No Sepsis New/Unexplained Change in Mental Status N/A Sepsis Action Taken by Nursing No Action Required GENERAL APPEARANCE: well nourished PSYCH: no acute distress NEURO: Alert and oriented x3 EENT: Sclera anicteric, conjunctiva pink. No oral lesions, mouth sores. Oral mucosa moist and pink. No cervical, supraclavicular, infraclavicular or axillary adenopathy No thyromegaly. CARDIAC: Normal S1 and S2. No S3, S4 or rubs, murmurs or gallops. Rhythm is regular. LUNGS: Clear to auscultation without rales, rhonchi, wheezing or diminished breath sounds. ABDOMEN: Positive bowel sounds. Soft, nondistended, nontender. No guarding or rebound. No masses or hernias. No hepatosplenomegaly. EXTREMITIES: No significant deformity or joint abnormality. No edema, cyanosis or clubbing. Peripheral pulses intact. 3+ pitting edema bilateral LE. LUE fistula. SKIN: Skin normal color, texture and turgor with no lesions or eruptions. Course Course Patient is a 59 y/o M PMHx ESRD not on hemodialysis, T2DM, HTN, and iron deficiency anemia presents to ED for evaluation of abnormal lab. Patient discharged from [facility] on 05/18 for FUAD on CKD. Managed during admission with furosemide and home BP medications. Discharged home with furosemide 20mg BID and added hydralazine 50mg TID to home regimen. Kidney function on discharge 3.89. Following with nephrology outpatient. Labs repeated 05/21- Cr 4.71 and 05/25 - Cr 4.96. Patient was sent to ED this morning, per nephrology, due to worsening kidney function. Patient is still making urine, however notes he has noticed a decrease in baseline output. Electrolytes acceptable. Patient reports worsening bilateral lower extremity edema, otherwise ROS is negative. Patient reports feeling well and no other concerns today. Discussed with central sterile technician on-call with [facility] nephrology. Will plan for full work-up including CBC, BMP, troponin, BNP, urinalysis, EKG, and renal US. Continue observation and re-evaluation. 1055- labs resulted - H&H 11.9 & 36.3. WBC without leukocytosis. Electrolytes stable. Cr 5.78. BUN 85. Trop negative. Will plan for admission at this time given lab result. Medical Decision Making Differential Diagnosis FUAD on CKD stage 4 Medical Records Attestation: I reviewed the patient's medical records. Home Medications Current Medication List: was personally reviewed by me Laboratory Data Attestation: I reviewed the patient's lab results. 05/26/25 08:26 05/26/25 08:26 Lab Results 05/26/25 Range/Units 08:26 WBC 7.52 (4.8-10.8) K/ul RBC 3.76 L (4.70-6.10) M/uL Hgb 11.9 L (14.0-18.0) g/dl Hct 36.3 L (42.0-52.0) % MCV 96.5 (80.0-100.0) fL MCH 31.6 (25.0-34.0) pg MCHC 32.8 (32.0-36.0) g/dL RDW Std Deviation 46.8 H (36.4-46.3) fL RDW Coeff of Kelsey 13.3 (11.5-14.5) % Plt Count 192 (130-400) K/uL MPV 10.6 (9.4-12.4) fL Immature Gran % (Auto) 0.3 % Neut % (Auto) 59.0 % Lymph % (Auto) 26.2 % [place] % (Auto) 9.0 % Eos % (Auto) 4.8 % Baso % (Auto) 0.7 % Neut # (Auto) 4.44 (1.40-6.50) K/uL Lymph # (Auto) 1.97 (1.20-3.40) K/uL [place] # (Auto) 0.68 H (0.11-0.59) K/uL Eos # (Auto) 0.36 (0.00-0.50) K/uL Baso # (Auto) 0.05 (0.00-0.20) K/uL Immature Gran # (Auto) 0.02 (0.01-0.20) K/uL Sodium 136 (136-145) mmol/L Potassium 4.9 (3.5-5.1) mmol/L Chloride 104 (98-107) mmol/L Carbon Dioxide 24 (21-32) mmol/L Anion Gap 8 (3-11) BUN 85 H (6-23) mg/dl Creatinine 5.78 H* D (0.6-1.4) mg/dl Est Cr Clr Drug Dosing 14.4 ml/min eGFR 10.43 BUN/Creatinine Ratio 14.7 (10-20) Glucose 152 H (70-99(Fasting)) mg/dl Calcium 9.3 (8.6-10.3) mg/dl Troponin I High Sens 10.8 (0-20) pg/ml B-Natriuretic Peptide 617 H (0-100) pg/ml MDM Narrative Patient is a 59 y/o M with hx ESRD presenting to ED due to worsening creatinine level. Labs repeated on arrival showing Cr 5.7. Patient appearing fluid overloaded on exam with worsening bilateral pitting edema. Will plan for admission at this time. Impression & Plan End stage renal disease Discharge Plan Visit Data Chief Complaint: Abnormal Labs/Diagnostic Testing Stated Complaint: KIDNEY FUNCTION OFF, BLOODWORK FROM FRI ABNORMAL ED Provider: Amado Benitez Discharge Problem: End stage renal disease Patient Disposition: Admitted As Inpatient Condition: Fair Forms Stand Alone Forms: My [facility] Prescriptions Prescriptions: No Action (DME) pen needle, diabetic [BD Ultra-Fine Short Pen Needle] 31 gauge x 5/16" needle See Rx Instructions .Route Qty: 100 3RF Rx Instructions: use to inject insulin once daily atorvastatin 20 mg tablet 20 mg PO QAM Qty: 90 3RF amlodipine [Norvasc] 10 mg tablet 10 mg PO QAM Qty: 90 3RF lisinopril 40 mg tablet 40 mg PO QAM Qty: 90 3RF Hold Instructions: fuad metoprolol succinate 50 mg tablet extended release 24 hr 50 mg PO QAM Qty: 90 3RF Jardiance 10 mg tablet 10 mg PO QAM Qty: 30 6RF Hold Instructions: fuad sodium polystyrene sulf-sorbtl 15-20 gram/60 mL suspension 60 ml PO UD Qty: 473 6RF Patient Comments: 05/16- per pt, he hasn't used medication in awhile but he was taking once weekly Rx Instructions: once week a week aspirin 81 mg tablet,delayed release (DR/EC) 81 mg PO QAM allopurinol 100 mg tablet 200 mg PO QAM Medical Thc 1 unit 1 unit PO UD PRN (Reason: Anxiety) oxycodone-acetaminophen [Percocet] 5-325 mg tablet 1 tab PO Q8H PRN (Reason: pain) Qty: 30 0RF ergocalciferol (vitamin D2) 1,250 mcg (50,000 unit) capsule 0 unit PO WEEKLY Patient Comments: 05/16- per pt he hasnt used medication in awhile hydralazine 50 mg Tablet 50 mg PO TID Qty: 90 0RF furosemide 20 mg Tablet 20 mg PO BID17 Qty: 60 0RF Eliquis 5 mg tablet 10 mg PO Q12H Qty: 22 0RF Rx Instructions: Take 2 tablets on 05/18/2025, 10:00pm. Then take 2 tablets on 05/19/2025, 10:00am, 10:00pm; 2 tablets on 05/20/2025, 10:00am, 10:00pm; 2 tablets on 05/21/2025, 10:00am, 10:00pm; 2 tablets on 05/22/2025, 10:00am, 10:00pm; 2 tablets on 05/23/2025, 10:00am, 10:00pm. Eliquis 5 mg tablet 5 mg PO Q12H Qty: 166 0RF Rx Instructions: Take 1 tablet by mouth every 12 hours, starting on 05/24/2025, 10:00am, stopping AFTER 07/05/2025, 10:00pm dose. Referrals Referrals: Amado Bartholomew DO [Primary Care Provider] - Addendum May 26, 2025 12 Teaching Physician Attestation by Dr. Benitez: I personally saw and examined the patient. I have reviewed and agree with the residents findings including all diagnostic interpretations, and treatment plans as written. I was present for the roman portions of any procedures performed ALL INFORMATION BELOW HAS BEEN PROVIDED EXCLUSIVELY BY THE ED (TEACHING) PHYSICIAN: 1) I have personally performed roman portions of the medical history, physical examination, and medical decision making. I have personally supervised all documented procedures, and I agree with the medical necessity to perform these, as well as the Residents description. I agree with the medical necessity to perform all documented lab and radiology tests on this patient. This entire note was authenticated by the ED (Teaching) Physician at the time of service. Additional Teaching physicians Summary of Findings and Medical Decision Making are noted below (or in a separate document): Patient is a 59-year-old male presents for gradually worsening kidney function. He had lab work yesterday which showed an elevated creatinine of 4.96. Fistula in place with plans by Nephrology to initiate dialysis. Repeat Cr today is 5.78. Electrolytes non-concerning. Patient is fluid overloaded on exam. Spoke with Dr. Bob with Nephrology who touched base with Dr. Olivia who is patient's Crm Marketing Analyst. She recommends FUAD workup and admission for diuresis and possible dialysis.
[2025-05-26 09:29] LABS: Hematocrit (blood only) 36.3 % (42.0-52.0); Hemoglobin 11.9 g/dl (14.0-18.0); Immature Granulocytes # (auto) 0.02 K/uL (0.01-0.20); Immature Granulocytes % (auto) 0.3 %; Mean Corpuscular Hemoglobin 31.6 pg (25.0-34.0); Mean Corpuscular Volume 96.5 fL (80.0-100.0); Platelet Count 192 K/uL (130-400); RDW Standard Deviation 46.8 fL (36.4-46.3); Red Blood Count 3.76 M/uL (4.70-6.10); White Blood Count 7.52 K/ul (4.8-10.8)
[2025-05-26 10:49] LABS: Anion Gap 8.0 (3-11); Blood Urea Nitrogen 85.0 mg/dl (6-23); Calcium 9.3 mg/dl (8.6-10.3); Carbon Dioxide 24.0 mmol/L (21-32); Chloride 104.0 mmol/L (98-107); Creatinine Clr Calc Pharmacy 14.4 ml/min; Glucose 152.0 mg/dl (70-99(Fasting)); Potassium 4.9 mmol/L (3.5-5.1); Sodium 136.0 mmol/L (136-145)
[2025-05-26 12:31] LABS: Appearance Urine Clear (Clear); Bacteria Urine Automated None Seen (None Seen); Cast Urine Automated 0-2 /lpf (0-2); Epithelial Cell Urine Auto 0-2 /hpf (0-2); Glucose Urine UA Negative (Negative); RBC Urine Automated 0-2 /hpf (0-2); WBC Urine Automated 0-5 /hpf (0-5)
--- NOTE | 2025-05-26 12:42 | History & Physical Report ---
Date of Service May 26, 2025 Assessment & Plan (1) Acute kidney injury: (2) Chronic kidney disease, stage 4 (severe): (3) Volume overload: (4) Diabetes mellitus type 2, controlled: (5) Resistant hypertension: Plan 59 y/o with CKD 4-5 related to diabetic nephropathy who was sent in by Dr. Olivia for progressively worsening kidney function over the past week. Kidney function has been worsening rapidly recently and he is near needing dialysis. Has AVF, PD planned, started transplant eval at [facility] #FUAD on CKD 4-5 vs progression to ESRD. Access - has IV fistula #volume overload due to kidney failure -consulted Dr. Rosenthal - discussed with him -renal ultrasound unremarkable, UA only with protein -trial IV lasix - 80 mg ordered and had at least 600 UOP over first several hours. Need to check labs and re-dose in AM -hold lisinopril and empagliflozin -monitor I/O, UOP, weight, daily BMP #resistant hypertension -diuresis, continue metoprolol and amlodipine, hydralazine -monitor BP #DM type 2 -held empagliflozin -diabetic diet and premeal PRN aspart #DVT - recent -continue apixaban 5 mg bid - discussed with pharmacist - this is the correct dose for DVT treatment in ESRD #PAD, HLD -continue statin, other meds as above #gout - not in flare continue allopurinol #COPD - per chart but not on inhalers and no symptoms currently History of Present Illness Chief Complaint: sent in by field service consultant Primary Care Provider: Amado Bartholomew, DO 59 y/o with CKD 4-5 nearing dialysis sent in to ED by his field service consultant with declining renal function Recently admitted with volume overload, diuresed and discharged on lasix 20 mg bid. Also on lisinopril and empagliflozin, both of which were stopped by field service consultant yesterday. Found to have DVTs that admission and started on apixaban. Feels ok since then and leg edema improved, though still significant. Does have increasing fatigue, malaise and some nausea last few months. Cr on 05/18 3.89 -->4.71-->4.96 prior to weekend-->5.78 today Potassium 4.9 Baseline creatinine recently 3.5-3.8 mg/dL. Proteinuria quantified at ~8 grams Urinating less than normal, but is urinating. Has mature AVF No dyspnea, cough, CP. No vomiting/diarrhea. Appetite is intact. No dysuria. Allergies Allergy/AdvReac Type Severity Reaction Status Date / Time dulaglutide [From [facility]] AdvReac Intermediate nausea/vomi Verified 05/26/25 13:06 ting Home Medications Medication Instructions Recorded Confirmed Type pen needle, diabetic 31 gauge x #100 ea 03/03/22 05/26/25 Rx 5/16" (BD Ultra-Fine Short Pen Needle) atorvastatin 20 mg tablet 20 mg PO QAM #90 tabs 07/23/24 05/26/25 Rx allopurinol 100 mg tablet 200 mg PO QAM 11/11/24 05/26/25 History amlodipine 10 mg tablet (Norvasc) 10 mg PO QAM #90 tabs 01/15/25 05/26/25 Rx lisinopril 40 mg tablet 40 mg PO QAM #90 tabs 01/15/25 05/26/25 Rx metoprolol succinate 50 mg 50 mg PO QAM #90 tabs 01/15/25 05/26/25 Rx tablet,extended release 24 hr apixaban 5 mg tablet (Eliquis) 5 mg PO Q12H Acute bilateral 05/18/25 05/26/25 Rx posterior tibial DVT #166 tabs apixaban 5 mg tablet (Eliquis) 10 mg (2 x 5 mg) PO Q12H acute 05/18/25 05/26/25 Rx bilateral posterior tibial DVT #22 tabs furosemide 20 mg tablet 20 mg PO BID17 #60 tabs 05/18/25 05/26/25 Rx hydralazine 50 mg tablet 50 mg PO TID #90 tabs 05/18/25 05/26/25 Rx empagliflozin 10 mg tablet 0 mg PO QAM 05/26/25 05/26/25 History (Jardiance) Past Med/Surg History Problem List CKD (chronic kidney disease) Volume overload DVT (deep venous thrombosis) Chest pain (Acute) Dyspnea S/P vascular surgery Low back pain Anemia (Acute) Hyperkalemia most recent: 08/2023 Resistant hypertension Bilateral nephrolithiasis Microscopic hematuria Hyperphosphatemia 03/2024 Hyperuricemia hx of gout Gout Vitamin D deficiency Colon cancer screening Nephrotic range proteinuria Hematuria (~04/2021) Diabetic neuropathy associated with type 2 diabetes mellitus (Acute) Diabetes type 2, uncontrolled (Acute) Diabetes mellitus type 2, controlled Hyperlipidemia Hypertension (Acute) Medical History HTN (hypertension) per Nephro, pt noncompliant with medications CKD (chronic kidney disease), stage IV with nephrotic range proteinuria; per Nephro, 2/2 diabetic nephropathy and poorly controlled HTN (pt scheduled for AVF creation however hopes to eventually do PD; he was also seen for consult for transplant; awaiting testing) Lower extremity edema b/l Hx of gout Chronic cough COPD (chronic obstructive pulmonary disease) no pulm/chronic cough Anemia Hyperlipidemia Diabetic neuropathy associated with type 2 diabetes mellitus Diabetes type 2 Hx of renal calculi Hx of colonic polyps Surgical History S/P cystoscopy with ureteral stent placement (11/2019) 09/2019 Hx of colonoscopy with polypectomy Hx of lithotripsy (~11/2020) Family History Father Diabetes Hypertension Sister Diabetes Mother Stroke Myocardial infarction Denies family history of Ovarian cancer Prostate cancer Breast cancer Lung cancer Colorectal cancer Social History Smoking Status: Never smoker Tobacco Type: Cigarettes Age Started Using Tobacco: 16; Age Quit Using Tobacco: 27; packs per day: 0; Second Hand Exposure: No; Do You Dip or Chew Tobacco: No; Hx Alcohol Use: Yes Alcohol type: hard liquor Alcohol Intake Frequency Comment: beer every night Hx Substance Use: No Preferred Language: Ivorian Communication Ability: Effective Visual Impairment: No Limitations Hearing Ability: Normal Motor Express Clerk Required: No Beliefs That Will Affect Care: None marital status: Single Current Living Situation: Significant Other Current Living Situation Comment: apartment current occupational status: 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 do You have: 1 Other Information That Helps Us Care for You: No Feels Safe at Home: Yes Safety Concerns: Feels Safe At This Time Childhood Exposure to Second-Hand Smoke: Yes Diet: regular caffeine: Yes (drinks tea about every day ) Dental Care, Regularly: Yes Physical Activity Frequency: Does not Exercise Seatbelt Use: always Sunscreen Use: No Do you think of yourself as: straight/heterosexual Gender Identity: Male Assistive Devices: Glasses Review of Systems 2 Review of Systems: All systems reviewed & are unremarkable except as noted in HPI & below Physical Exam 2 Physical Exam: Last 24h vitals reviewed GEN: no acute distress, sitting EOB eating dinner HEENT: pupils equal, sclerae anicteric, moist MM RESP: normal WOB, CTAB CV: reg no mrg ABD: soft/nt/nd +BT : no menendez SKIN: warm and dry, no generalized rashes EXT: wwp, nontender LE and 2-3+ bilateral LE edema LUE AVF with good thrill NEURO: AOx person, place, and situation. Face symmetric, speech normal, moves 4 ext spontaneously and equally Results & Data Results & Data Vital Signs (Past 12 Hours) Vital Signs Temp Pulse Pulse Resp BP BP Pulse Ox 05/26/25 12:11 58 L 18 131/72 97 05/26/25 12:09 58 L 05/26/25 10:00 65 13 118/83 98 05/26/25 08:28 71 05/26/25 08:19 36.3 C L 70 20 169/71 H 100 O2 Del Method 05/26/25 12:11 Room Air 05/26/25 12:09 05/26/25 10:00 Room Air 05/26/25 08:28 05/26/25 08:19 Room Air Laboratory Results 05/26/25 08:26 05/26/25 08:26 Cr trend - see HPI BNP 617 UA with protein, otherwise negative Tn 10 personally reviewed EKG tracing - normal EKG Renal ultrasound - unremarkable, normal sized kidneys no obstruction PG Care Time/CCT Total # of Minutes Spent Total Time Spent with Patient: Total time spent is greater than 50% in coordination of care (as documented) at patient's floor/unit and/or counseling patient: Coding Level of Care Code 61048 INT INP/OBS CARE 3/75MIN Diagnoses Acute kidney injury N17.9 Chronic kidney disease, stage 4 (severe) N18.4 Volume overload E87.70 Diabetes mellitus type 2, controlled E11.9 Resistant hypertension I10
[2025-05-26] MEDS: FUROSEMIDE 40 MG/4 ML VIAL IV ONE (12:58)
--- NOTE | 2025-05-26 13:37 | Electrocardiogram Report ---
Test Reason : Blood Pressure : */* mmHG Vent. Rate : 70 BPM Atrial Rate : 70 BPM P-R Int : 202 ms QRS Dur : 98 ms QT Int : 408 ms P-R-T Axes : 49 47 62 degrees QTcB Int : 440 ms Normal sinus rhythm Normal ECG When compared with ECG of 16-May-2025 15:22, No significant change was found Confirmed by Darren Bobby ([id number]) on 05/26/2025 1:37:20 PM Referred By: REFERRED SELF Confirmed By: Darren Bobby
--- NOTE | 2025-05-26 14:53 | Ultrasound Report ---
RENAL ULTRASOUND HISTORY: Acute kidney injury FUAD COMPARISON: CT abdomen and pelvis 12/20/2022 FINDINGS: Right kidney: 10.7 cm. No hydronephrosis. Normal corticomedullary differentiation and cortical thickn ess. Left kidney: 10.8 cm. No hydronephrosis. Normal corticomedullary differentiation and cortical thickne ss. Bladder: No bladder wall thickening. The bilateral ureteral jets were identified. IMPRESSION: Unremarkable renal ultrasound. ACT 112: Negative or not required by law. Electronically signed by: Arnoldo Man M.D. 05/26/2025 2:52 PM
[2025-05-26] MEDS ORDERED: GLUCOSE 10 TAB/TUBE PO PRN (15:56)
[2025-05-26] MEDS ORDERED: GLUCOSE 40% GEL 15 GM TUBE PO PRN (15:56)
[2025-05-26] MEDS ORDERED: POLYETHYLENE (MIRALAX) 17 GM PACK PO PRN (15:56)
[2025-05-26] MEDS ORDERED: ONDANSETRON INJ 2 MG/ML 2 ML VIAL IV PRN (15:56)
[2025-05-26] MEDS ORDERED: MELATONIN 3 MG TAB PO PRN (15:56)
[2025-05-26] MEDS ORDERED: ACETAMINOPHEN 325 MG TAB PO PRN (15:56)
[2025-05-26] MEDS ORDERED: GLUCAGON FOR INJ 1 MG VIAL SQ PRN (15:56)
[2025-05-26] MEDS ORDERED: DEXTROSE 50% 50 ML SYRINGE IV PRN (15:56)
[2025-05-26] MEDS ORDERED: CARBOHYDRATES FOR HYPOGLYCEMIA PO PRN (15:56)
[2025-05-26] MEDS: INSULIN ASPART PER UNIT CHARGE SC SCH (17:04)
--- NOTE | 2025-05-26 18:08 | Nephrology Consultation ---
Date of Consultation May 26, 2025 Assessment & Plan (1) Acute kidney injury: Non-oliguric. Electrolytes acceptable. IV furosemide has been provided to encourage urine output. There is no emergent indication for dialysis. Edema in legs noted. Chris is third spacing some fluid. BP notably elevated but EAV may be reduced due to recent diuretics. Hold lisinopril. US without signs of obstruction. Urine microscopy acellular. Lisinopril has been held. Empagliflozin held. Document strict I/O's. Repeat metabolic profile tomorrow AM. (2) CKD (chronic kidney disease): CKD IV-V A3. Advanced kidney dysfunction approaching dialysis. AVF mature for use. Hopefully, kidney function will stabilize with therapy but Chris is aware that dialysis may be indicated. Medications are appropriately dosed for kidney function. (3) Volume overload: Furosemide 80 mg IV provided. LE edema in part related to venous insufficiency/DVT. Low sodium diet. Strict I/O's. (4) Resistant hypertension: Hold lisinopril. Amlodipine 10 mg daily per home Rx. Metoprolol succinate 50 mg daily per home Rx. Hydralazine adjusted/titrated as needed. History of Present Illness Reason for Consultation: FUAD on CKD Requesting Physician: Cristine Narayan MD Attending Physician: Cristine Narayan MD History of Present Illness Mr. Jez Ortega (Ken) is a 59 year-old male with CKD IV-V A3 attributed to DKD. He follows in the [facility] nephrology clinic with Dr. Olivia. Kidney dysfunction has been progressing unfortunately rapidly. Baseline creatinine recently 3.5-3.8 mg/dL. Proteinuria quantified at ~8 grams. Kidneys are normal on imaging. Chris has started predialysis preparations. AVF placed in December is mature for use. Chris would prefer to start PD when dialysis is necessary. He recently started a transplant evaluation at [facility]. Medical history is notable for longstanding diabetes mellitus and hypertension, as well as gout. Chris was admitted to [facility] early this month with fluid retention. Prior to admission, baseline creatinine had been ~2.8-3.0 mg/dL. LE duplex demonstrated BL DVT. Chris was placed on Eliquis. He diuresed with IV furosemide and was discharged home on 20 mg twice daily. For anemia, a single dose of Epogen 40,000 units was provided on May 17. Chris was feeling well on follow up with Dr. Olivia on May 20. Unfortunately, recent laboratory studies demonstrated an elevation in serum creatinine for which he was referred to the ER for evaluation. I discussed the patient and plan of care with Dr. Olivia and Dr. Narayan today. Renal US does not demonstrate obstruction. UA is bland with acellular microscopy. Chris was found to have persistent fluid retention on evaluation for which furosemide 80 mg IV was provided. He was admitted for inpatient observation during diuresis with the understanding that dialysis may be required. Chris reports some recent nausea but appetite has been good. Activity tolerance stable. No shortness of breath, chest pains, palpitations. No urinary symptoms. LE edema has markedly improved. Allergies Allergy/AdvReac Type Severity Reaction Status Date / Time dulaglutide [From [facility]] AdvReac Intermediate nausea/vomi Verified 05/26/25 13:06 ting Home Medications Medication Instructions Recorded Confirmed Type pen needle, diabetic 31 gauge x #100 ea 03/03/22 05/26/25 Rx 5/16" (BD Ultra-Fine Short Pen Needle) atorvastatin 20 mg tablet 20 mg PO QAM #90 tabs 07/23/24 05/26/25 Rx allopurinol 100 mg tablet 200 mg PO QAM 11/11/24 05/26/25 History amlodipine 10 mg tablet (Norvasc) 10 mg PO QAM #90 tabs 01/15/25 05/26/25 Rx lisinopril 40 mg tablet 40 mg PO QAM #90 tabs 01/15/25 05/26/25 Rx metoprolol succinate 50 mg 50 mg PO QAM #90 tabs 01/15/25 05/26/25 Rx tablet,extended release 24 hr apixaban 5 mg tablet (Eliquis) 5 mg PO Q12H Acute bilateral 05/18/25 05/26/25 Rx posterior tibial DVT #166 tabs apixaban 5 mg tablet (Eliquis) 10 mg (2 x 5 mg) PO Q12H acute 05/18/25 05/26/25 Rx bilateral posterior tibial DVT #22 tabs furosemide 20 mg tablet 20 mg PO BID17 #60 tabs 05/18/25 05/26/25 Rx hydralazine 50 mg tablet 50 mg PO TID #90 tabs 05/18/25 05/26/25 Rx empagliflozin 10 mg tablet 0 mg PO QAM 05/26/25 05/26/25 History (Jardiance) Patient History Medical History HTN (hypertension) per Nephro, pt noncompliant with medications CKD (chronic kidney disease), stage IV with nephrotic range proteinuria; per Nephro, 2/2 diabetic nephropathy and poorly controlled HTN (pt scheduled for AVF creation however hopes to eventually do PD; he was also seen for consult for transplant; awaiting testing) Lower extremity edema b/l Hx of gout Chronic cough COPD (chronic obstructive pulmonary disease) no pulm/chronic cough Anemia Hyperlipidemia Diabetic neuropathy associated with type 2 diabetes mellitus Diabetes type 2 Hx of renal calculi Hx of colonic polyps Surgical History S/P cystoscopy with ureteral stent placement (11/2019) 09/2019 Hx of colonoscopy with polypectomy Hx of lithotripsy (~11/2020) Family History Father Diabetes Hypertension Sister Diabetes Mother Stroke Myocardial infarction Denies family history of Ovarian cancer Prostate cancer Breast cancer Lung cancer Colorectal cancer Social History Smoking Status: Never smoker Tobacco Type: Cigarettes Age Started Using Tobacco: 16; Age Quit Using Tobacco: 27; packs per day: 0; Second Hand Exposure: No; Do You Dip or Chew Tobacco: No; Hx Alcohol Use: Yes Alcohol type: hard liquor Alcohol Intake Frequency Comment: beer every night Hx Substance Use: No Preferred Language: Kyrgyz Communication Ability: Effective Visual Impairment: No Limitations Hearing Ability: Normal Program Manager Slp Required: No Beliefs That Will Affect Care: None marital status: Single Current Living Situation: Significant Other Current Living Situation Comment: apartment current occupational status: 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 do You have: 1 Other Information That Helps Us Care for You: No Feels Safe at Home: Yes Safety Concerns: Feels Safe At This Time Childhood Exposure to Second-Hand Smoke: Yes Diet: regular caffeine: Yes (drinks tea about every day ) Dental Care, Regularly: Yes Physical Activity Frequency: Does not Exercise Seatbelt Use: always Sunscreen Use: No Do you think of yourself as: straight/heterosexual Gender Identity: Male Assistive Devices: Glasses Review of Systems Review of Systems: All systems reviewed & are unremarkable except as noted in HPI & below Physical Exam Constitutional: WD/WN, vitals as above Eyes: + anicteric sclerae ENMT: external ear and nose normal, oropharynx normal Neck: normal visual inspection Respiratory: normal respiratory effort Auscultation: lungs clear to auscultation bilaterally Cardiovascular: Rate/Rhythm: regular rate and regular rhythm Heart Sounds: normal S1 and normal S2 Extremities: + edema and + AV fistula Musculoskeletal: Extremities: no cyanosis and no clubbing Results & Data Vital Signs (Past 12 Hours) Vital Signs Temp Pulse Pulse Resp BP BP Pulse Ox 05/26/25 17:46 66 05/26/25 16:00 36.4 C L 64 18 160/70 H 100 05/26/25 15:56 05/26/25 14:49 05/26/25 12:58 137/67 05/26/25 12:11 58 L 18 131/72 97 05/26/25 12:09 58 L 05/26/25 10:00 65 13 118/83 98 05/26/25 08:28 71 05/26/25 08:19 36.3 C L 70 20 169/71 H 100 Pulse Ox O2 Del Method O2 Del Method 05/26/25 17:46 05/26/25 16:00 Room Air 05/26/25 15:56 99 Room Air 05/26/25 14:49 Room Air 05/26/25 12:58 05/26/25 12:11 Room Air 05/26/25 12:09 05/26/25 10:00 Room Air 05/26/25 08:28 05/26/25 08:19 Room Air Laboratory Results Laboratory Results - last 24 hr 05/26/25 05/26/25 05/26/25 08:26 12:09 16:01 WBC 7.52 RBC 3.76 L Hgb 11.9 L Hct 36.3 L MCV 96.5 MCH 31.6 MCHC 32.8 RDW Std Deviation 46.8 H RDW Coeff of Kelsey 13.3 Plt Count 192 MPV 10.6 Immature Gran % (Auto) 0.3 Neut % (Auto) 59.0 Lymph % (Auto) 26.2 Angelina % (Auto) 9.0 Eos % (Auto) 4.8 Baso % (Auto) 0.7 Neut # (Auto) 4.44 Lymph # (Auto) 1.97 Angelina # (Auto) 0.68 H Eos # (Auto) 0.36 Baso # (Auto) 0.05 Immature Gran # (Auto) 0.02 Sodium 136 Potassium 4.9 Chloride 104 Carbon Dioxide 24 Anion Gap 8 BUN 85 H Creatinine 5.78 H* D Est Cr Clr Drug Dosing 14.4 eGFR 10.43 BUN/Creatinine Ratio 14.7 Glucose 152 H POC Glucose 93 Calcium 9.3 Troponin I High Sens 10.8 B-Natriuretic Peptide 617 H Urine Color Yellow Urine Appearance Clear Urine pH 5.5 Ur Specific [place] 1.012 Urine Protein 3+ H Urine Glucose (UA) Negative Urine Ketones Negative Urine Blood Negative Urine Nitrite Negative Urine Bilirubin Negative Urine Urobilinogen Negative Ur Leukocyte Esterase Negative Urine WBC (Auto) 0-5 Urine RBC (Auto) 0-2 U Hyaline Cast (Auto) 0-2 U Epithel Cells (Auto) 0-2 Urine Bacteria (Auto) None Seen Ur Random Creatinine 92.2 Ur Random Sodium 52 Ur Random Chloride 38 Urine Comment Diagnostic Findings RENAL ULTRASOUND COMPARISON: CT abdomen and pelvis 12/20/2022 FINDINGS: Right kidney: 10.7 cm. No hydronephrosis. Normal corticomedullary differentiation and cortical thickness. Left kidney: 10.8 cm. No hydronephrosis. Normal corticomedullary differentiation and cortical thickness. Bladder: No bladder wall thickening. The bilateral ureteral jets were identified. IMPRESSION: Unremarkable renal ultrasound. PG Care Time/CCT Total # of Minutes Spent Total Time Spent with Patient: Total time spent is greater than 50% in coordination of care (as documented) at patient's floor/unit and/or counseling patient: Coding Level of Care Code 68022 IN/OBS CONSULT LVL 4,60M Diagnoses Acute kidney injury N17.9 CKD (chronic kidney disease) N18.9 Volume overload E87.70 Resistant hypertension I10
[2025-05-26] MEDS: APIXABAN 5 MG TABLET PO SCH (20:29)
[2025-05-26] MEDS ORDERED: APIXABAN 2.5 MG TAB PO SCH (21:00)
[2025-05-27 07:04] LABS: Hematocrit (blood only) 30.0 % (42.0-52.0); Hemoglobin 10.6 g/dl (14.0-18.0); Mean Corpuscular Hemoglobin 33.1 pg (25.0-34.0); Mean Corpuscular Volume 93.8 fL (80.0-100.0); Platelet Count 164 K/uL (130-400); RDW Standard Deviation 43.1 fL (36.4-46.3); Red Blood Count 3.20 M/uL (4.70-6.10); White Blood Count 7.40 K/ul (4.8-10.8)
[2025-05-27 07:26] LABS: Anion Gap 7.0 (3-11); Blood Urea Nitrogen 93.0 mg/dl (6-23); Calcium 8.7 mg/dl (8.6-10.3); Carbon Dioxide 23.0 mmol/L (21-32); Chloride 107.0 mmol/L (98-107); Creatinine Clr Calc Pharmacy 15.8 ml/min; Glucose 150.0 mg/dl (70-99(Fasting)); Magnesium 1.9 mg/dl (1.7-2.4); Potassium 4.6 mmol/L (3.5-5.1); Sodium 137.0 mmol/L (136-145)
--- NOTE | 2025-05-27 08:23 | Hospitalist Progress Note ---
Date of Service May 27, 2025 Assessment & Plan (1) Acute kidney injury: (2) Volume overload: (3) Diabetes mellitus type 2, controlled: (4) Resistant hypertension: Plan 59 y/o with CKD 4-5 related to diabetic nephropathy who was sent in by Dr. Olivia for progressively worsening kidney function over the past week. Kidney function has been worsening rapidly recently and he is near needing dialysis. Has AVF, PD planned, started transplant eval at [facility] #FUAD on CKD 4-5 vs progression to ESRD. Access -previously dialysis fistula was placed in his left arm #volume overload due to kidney failure with resultant symptoms of heart failure preserved ejection fraction Dr. Olivia is seeing the patient as an inpatient -renal ultrasound unremarkable, UA only with protein -trial IV lasix - 80 mg ordered and had at least 600 UOP over first several hours. Diuretic doses held on 05/27/2025 - Continue to hold lisinopril and empagliflozin -monitor I/O, UOP, weight, daily BMP #resistant hypertension improved -diuresis, continue metoprolol and amlodipine, hydralazine -monitor BP #DM type 2 -held empagliflozin -diabetic diet and premeal PRN aspart #DVT - recent dx 05/16/25 -continue apixaban 5 mg bid - discussed with pharmacist - this is the correct dose for DVT treatment in ESRD #PAD, HLD -continue statin, other meds as above #gout - not in flare continue allopurinol #COPD - per chart but not on inhalers and no symptoms currently Admission and Anticipated Discharge Date Admission Date: May 26, 2025 Subjective pt is without complaints, says he has good day and bad days, currently has mixed results with increased BUN and lower CR although still above baseline fistule still with thrill in left antecub Physical Exam Physical Exam: Patient awake without acute problems. He is in no respiratory distress. Lungs are diminished at the bases but otherwise are clear. He has a thrill in his left antecubital fossa. His cardiac exam is regular extremities are with 1+ edema bilaterally. Results & Data Results & Data Vital Signs (Past 12 Hours) Vital Signs Temp Pulse Pulse Resp BP Pulse Ox O2 Del Method 05/27/25 07:27 98.4 F 69 16 135/61 96 Room Air 05/27/25 07:21 63 05/27/25 02:34 97.7 F 64 18 139/68 95 Room Air 05/26/25 22:46 97.9 F 66 18 152/89 H 95 Room Air Laboratory Results Reviewed chemistry bicarb and potassium are stable BUN elevated creatinine slightly down but over baseline reviewed CBC mild anemia PG Care Time/CCT Total # of Minutes Spent Total Time Spent with Patient: Total time spent is greater than 50% in coordination of care (as documented) at patient's floor/unit and/or counseling patient: Coding Level of Care Code 94199 SUB INP/OBS CARE 2/35MIN Diagnoses Acute kidney injury N17.9 Volume overload E87.70 Diabetes mellitus type 2, controlled E11.9 Resistant hypertension I10
[2025-05-27] MEDS: METOPROLOL SUCC 50MG EXT REL TAB PO SCH (08:28)
[2025-05-27] MEDS: ASPIRIN 81 MG ECTAB PO SCH (08:29)
[2025-05-27] MEDS: ATORVASTATIN 20 MG TAB PO SCH (08:29)
--- NOTE | 2025-05-27 09:56 | Nephrology Progress Note ---
Date of Service May 27, 2025 Assessment & Plan (1) Acute kidney injury: (2) HTN (hypertension): (3) Anemia: (4) Hyperphosphatemia: (5) Nephrotic range proteinuria: (6) Diabetic neuropathy associated with type 2 diabetes mellitus: Plan 59-year-old man with stage IV/V CKD secondary to diabetic kidney disease and nephrotic range proteinuria admitted with FUAD and volume overload. Received 1 dose of Lasix 40 mg IV while on observation hyperorality and noted to have dece nt urine output, net negative. Volume status improved. Baseline creatinine has been around 2.5-3, recent progressive worsening of kidney function, on admission creatinine is 5.8 which is slightly improved to 5.2 this morning. Electrolyte acceptable. Hemoglobin 10.6. Renal ultrasound with no postrenal obstruction. Lisinopril has been on hold. Has mature left brachiocephalic AV fistula. US without signs of obstruction. Urine microscopy acellular. --No acute indication for dialysis at this time, continue to monitor kidney function and electrolyte. --Document strict I/O's, hold diuretic at this time. LE edema in part related to venous insufficiency/DVT. --Low sodium diet. Dose medications for eGFR less than 10. Left arm nephrology precaution. Admission and Anticipated Discharge Date Admission Date: May 26, 2025 Subjective Chris was seen and evaluated this morning. He reports overall feeling well, denies shortness of breath. Blood pressure improved and stable. Has been having decent urine output, overall net negative after 1 dose of IV Lasix on admission yesterday. Appetite and p.o. intake decent. Slight improvement in kidney function noted this morning, creatinine down to 5.2, electrolyte acceptable. Hemoglobin 10.6. Review of Systems Review of Systems: All systems reviewed & are unremarkable except as noted in Subjective Physical Exam Constitutional: WD/WN, vitals as above Eyes: + anicteric sclerae Neck: normal visual inspection Respiratory: normal respiratory effort Auscultation: lungs clear to auscultation bilaterally Cardiovascular: Rate/Rhythm: regular rate and regular rhythm Heart Sounds: normal S1 and normal S2 Extremities: + AV fistula (Left BC AVf with thrill and bruit) Musculoskeletal: Extremities: no cyanosis and no clubbing Skin: no rashes, warm and dry Neurologic: no focal motor deficits and not confused Psychiatric: A+Ox3, euthymic affect Results & Data Vital Signs (Past 12 Hours) Vital Signs Temp Pulse Pulse Resp BP Pulse Ox O2 Del Method 05/27/25 07:27 36.9 C 69 16 135/61 96 Room Air 05/27/25 07:21 63 05/27/25 02:34 36.5 C 64 18 139/68 95 Room Air 05/26/25 22:46 36.6 C 66 18 152/89 H 95 Room Air PG Care Time/CCT Total # of Minutes Spent Total Time Spent with Patient: Total time spent is greater than 50% in coordination of care (as documented) at patient's floor/unit and/or counseling patient: Coding Level of Care Code 18457 SUB INP/OBS CARE 2/35MIN Diagnoses Acute kidney injury N17.9 HTN (hypertension) I10 Hypertension type: unspecified Anemia D64.9 Anemia type: unspecified type Hyperphosphatemia E83.39 Nephrotic range proteinuria R80.9 Diabetic neuropathy associated with type 2 diabetes mellitus E11.49 Diabetes mellitus complication detail: with other neurological complication (2) HTN (hypertension) Hypertension type: unspecified Qualified Code(s): I10 - Essential (primary) hypertension (3) Anemia Anemia type: unspecified type Qualified Code(s): D64.9 - Anemia, unspecified (6) Diabetic neuropathy associated with type 2 diabetes mellitus Diabetes mellitus complication detail: with other neurological complication Qualified Code(s): E11.49 - Type 2 diabetes mellitus with other diabetic neurological complication
[2025-05-28 07:58] LABS: Hematocrit (blood only) 31.7 % (42.0-52.0); Hemoglobin 10.6 g/dl (14.0-18.0); Mean Corpuscular Hemoglobin 31.6 pg (25.0-34.0); Mean Corpuscular Volume 94.6 fL (80.0-100.0); Platelet Count 165 K/uL (130-400); RDW Standard Deviation 45.4 fL (36.4-46.3); Red Blood Count 3.35 M/uL (4.70-6.10); White Blood Count 6.65 K/ul (4.8-10.8)
[2025-05-28 08:27] LABS: Anion Gap 8.0 (3-11); Blood Urea Nitrogen 84.0 mg/dl (6-23); Calcium 9.0 mg/dl (8.6-10.3); Carbon Dioxide 21.0 mmol/L (21-32); Chloride 109.0 mmol/L (98-107); Creatinine Clr Calc Pharmacy 18.4 ml/min; Glucose 139.0 mg/dl (70-99(Fasting)); Magnesium 2.0 mg/dl (1.7-2.4); Potassium 4.3 mmol/L (3.5-5.1); Sodium 138.0 mmol/L (136-145)
--- NOTE | 2025-05-28 10:25 | Nephrology Progress Note ---
Date of Service May 28, 2025 Assessment & Plan (1) Acute kidney injury: Plan: Non-oliguric. Hemodynamically mediated. Volume status acceptable. Electrolytes normal. No emergent indication for dialysis. Creatinine improving. I discussed the plan of care with Dr. López this AM. Plan for discharge today. Repeat labs Sunday and follow up with Dr. Olivia in the outpatient clinic next week. Continue to hold lisinopril at discharge. (2) HTN (hypertension): Plan: BP acceptable. Lisinopril held. (3) Nephrotic range proteinuria: (4) Diabetic neuropathy associated with type 2 diabetes mellitus: Plan: May continue Jardiance. Admission and Anticipated Discharge Date Admission Date: May 26, 2025 Subjective No acute events overnight. Chris feels well this AM. Denies significant fluid retention or edema. Appetite is good. He is breathing comfortably. Review of Systems Review of Systems: All systems reviewed & are unremarkable except as noted in HPI & below Physical Exam Constitutional: WD/WN, vitals as above Eyes: + anicteric sclerae ENMT: external ear and nose normal, oropharynx normal Neck: normal visual inspection Respiratory: normal respiratory effort Auscultation: lungs clear to auscultation bilaterally Cardiovascular: Rate/Rhythm: regular rate and regular rhythm Heart Sounds: normal S1 and normal S2 Extremities: + edema and + AV fistula Musculoskeletal: Extremities: no cyanosis and no clubbing Results & Data Vital Signs (Past 12 Hours) Vital Signs Temp Pulse Pulse Pulse Resp BP Pulse Ox 05/28/25 07:03 57 L 05/28/25 06:58 36.5 C 57 L 18 141/73 H 95 05/28/25 02:19 36.5 C 58 L 16 129/71 96 05/27/25 22:25 36.6 C 61 18 142/70 H 98 O2 Del Method 05/28/25 07:03 05/28/25 06:58 Room Air 05/28/25 02:19 Room Air 05/27/25 22:25 Room Air Laboratory Results Laboratory Results - last 24 hr 05/27/25 05/27/25 05/27/25 10:57 16:18 20:07 WBC RBC Hgb Hct MCV MCH MCHC RDW Std Deviation RDW Coeff of Kelsey Plt Count MPV Sodium Potassium Chloride Carbon Dioxide Anion Gap BUN Creatinine Est Cr Clr Drug Dosing eGFR BUN/Creatinine Ratio Glucose POC Glucose 116 H 186 H 140 H Calcium Magnesium 05/28/25 05/28/25 07:00 07:20 WBC 6.65 RBC 3.35 L Hgb 10.6 L Hct 31.7 L MCV 94.6 MCH 31.6 MCHC 33.4 RDW Std Deviation 45.4 RDW Coeff of Kelsey 13.1 Plt Count 165 MPV 10.4 Sodium 138 Potassium 4.3 Chloride 109 H Carbon Dioxide 21 Anion Gap 8 BUN 84 H Creatinine 4.44 H D Est Cr Clr Drug Dosing 18.4 eGFR 14.31 BUN/Creatinine Ratio 18.9 Glucose 139 H POC Glucose 136 H Calcium 9.0 Magnesium 2.0 PG Care Time/CCT Total # of Minutes Spent Total Time Spent with Patient: Total time spent is greater than 50% in coordination of care (as documented) at patient's floor/unit and/or counseling patient: Coding Level of Care Code 52117 SUB INP/OBS CARE 3/50MIN Diagnoses Acute kidney injury N17.9 HTN (hypertension) I10 Hypertension type: unspecified Nephrotic range proteinuria R80.9 Diabetic neuropathy associated with type 2 diabetes mellitus E11.49 Diabetes mellitus complication detail: with other neurological c omplication (2) HTN (hypertension) Hypertension type: unspecified Qualified Code(s): I10 - Essential (primary) hypertension (4) Diabetic neuropathy associated with type 2 diabetes mellitus Diabetes mellitus complication detail: with other neurological complication Qualified Code(s): E11.49 - Type 2 diabetes mellitus with other diabetic neurological complication
[2025-05-28 11:15] VITALS: BP 153/74; PULSE 57; RESP 16; TEMP 97.9; O2SAT 98
--- NOTE | 2025-05-28 19:27 | Discharge Summary ---
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 Olivia for progressively worsening kidney function over the past week. Kidney function has been worsening rapidly recently and he is near needing dialysis. Has AVF, started transplant eval at [facility] #FUAD on CKD 4-5 vs progression to ESRD. Access -previously dialysis fistula was placed in his left arm #volume overload due to kidney failure with resultant symptoms of heart failure preserved ejection fraction -renal ultrasound unremarkable, UA only with protein -trial IV lasix - 80 mg ordered and had at least 600 UOP over first several hours. Diuretic doses held on 05/27/2025 and - Continue to hold lisinopril at discharge and resume empagliflozin -monitor I/O, UOP, weight, daily BMP #resistant hypertension improved -diuresis, continue metoprolol and amlodipine, hydralazine #DM type 2 - empagliflozin - #DVT - recent dx 05/16/25 -continue apixaban 5 mg bid - discussed with pharmacist - this is the correct dose for DVT treatment in ESRD #PAD, HLD -continue statin, other meds as above #gout - not in flare continue allopurinol #COPD - per chart but not on inhalers and no symptoms currently Admission HPI Per Admitting Provider 59 y/o with CKD 4-5 nearing dialysis sent in to ED by his race starter with de clining renal function Recently admitted with volume overload, diuresed and discharged on lasix 20 mg bid. Also on lisinopril and empagliflozin, both of which were stopped by race starter yesterday. Found to have DVTs that admission and started on apixaban. Feels ok since then and leg edema improved, though still significant. Does have increasing fatigue, malaise and some nausea last few months. Cr on 05/18 3.89 -->4.71-->4.96 prior to weekend-->5.78 today Potassium 4.9 Baseline creatinine recently 3.5-3.8 mg/dL. Proteinuria quantified at ~8 grams Urinating less than normal, but is urinating. Has mature AVF No dyspnea, cough, CP. No vomiting/diarrhea. Appetite is intact. No dysuria. Discharge Exam Patient resting comfortably lungs are clear Discharge Plan Discharge Items Patient Disposition: Home - Self-Care Reason For Visit: FUAD ON CKD Discharge Diagnosis: acute worsening of chronic kidney disease Condition on Discharge: Fair Activity: Resume your previous activity Non-emergency contact: Maint Mechanic Call non-emergency contact if: your symptoms worsen Follow-up/Referrals: Amado Bartholomew, [Primary Care Provider] - (Please call the office to schedule a hospital follow up appointment) Diet: Dialysis Renal Ambulatory Orders: Basic Metabolic Panel (Routine) Timeframe: [id number] Location: Determined by Patient Ordered By: Collin Yin Attending Provider Instructions: Please continue to follow your dietary recommendations for your renal disease, please have labs checked as an outpt next week perhaps on sunday06/01/25 Pending Studies at Discharge: No Stand-Alone Forms: [employer], Smoking Cessation Medications and DC Order Prescriptions: Continued (DME) pen needle, diabetic [BD Ultra-Fine Short Pen Needle] 31 gauge x 5/16" needle See Rx Instructions .Route Qty: 100 3RF Rx Instructions: use to inject insulin once daily atorvastatin 20 mg tablet 20 mg PO QAM Qty: 90 3RF amlodipine [Norvasc] 10 mg tablet 10 mg PO QAM Qty: 90 3RF metoprolol succinate 50 mg tablet extended release 24 hr 50 mg PO QAM Qty: 90 3RF allopurinol 100 mg tablet 200 mg PO QAM hydralazine 50 mg Tablet 50 mg PO TID Qty: 90 0RF furosemide 20 mg Tablet 20 mg PO [id number] Qty: 60 0RF Eliquis 5 mg tablet 5 mg PO Q12H Qty: 166 0RF Rx Instructions: Take 1 tablet by mouth every 12 hours, starting on 05/24/2025, 10:00am, stopping AFTER 07/05/2025, 10:00pm dose. Jardiance 10 mg tablet 0 mg PO QAM Patient Comments: Placed on hold as of 05/25/24, pt doesn't have a restart date. Original Directions: 10mg by mouth every morning. 05/26/25 Discontinued lisinopril 40 mg tablet 40 mg PO QAM Qty: 90 3RF Hold Instructions: fuad Discharge Orders: Discharge Order (Routine); Ordered 05/28/25 Ordered By: Collin López Admission Data Admit Date/Time: 05/26/25 12:53 Attending Provider: Collin López Admit Provider: Cristine Narayan Primary Care Provider: Amado Bartholomew Other Providers: Cristine Narayan; Red Rosenthal Other Interventions: Discharge Summary Assessment (RN) Last Done: 05/28/25 10:53 Hospital Stay Data Consultations 05/26/25 12:36 ED Decision to Admit Stat 05/26/25 15:56 Consult Nephrology Routine Diagnostic Imagining Performed 05/26/25 09:37 US Renal Bladder [US renal/blad retro comp] Stat Pending Results Patient Have Any Pending Studies at Discharge: No Discharge Instructions Given to Patient (Per Discharging Provider) Please continue to follow your dietary recommendations for your renal disease, please have labs checked as an outpt next week perhaps on sunday06/01/25 Total Time Total Time Spent Total Time Spent (In Minutes): It required greater than 30 minutes to prepare this patient for discharge. Coding Level of Care Code 64937 INP/OBS DISCH >30 MIN Diagnoses Acute kidney injury N17.9 Volume overload E87.70 Diabetes mellitus type 2, controlled E11.9 Resistant hypertension I10
== END 2025-05-28 13:50 | disposition home or self-care (01) | DRG 292 ==
LOC: ED 08:17 → SUATTDRO 12:53 → INTOOBSV 12:53 → 2S 12:53